=== PATIENT | female | born 1945 | race Caucasian/White ===

== ENCOUNTER 2016-09-12 19:59 | Inpatient (IN) | payer OTHER ==
[2016-09-12 20:00] VITALS: BMI 71.2
[2016-09-12] MEDS ORDERED: Albuterol-Ipratrop 3 mg / 0.5 (3 ml) UD ONE (20:40)
[2016-09-12] MEDS: Albuterol-Ipratrop 3 mg / 0.5 (3 ml) UD IH SCH ×3 (20:53→21:06)
[2016-09-12 20:57] LABS: BASO # 0.1 K/uL (0.0-0.2); EOS # 0.3 K/uL (0.0-0.7); EOS % 2.6 % (0.0-4.0); HEMATOCRIT 42.3 % (34.0-47.0); LYMPH # 2.6 K/uL (1.0-4.3); LYMPH % 20.7 % (20.0-40.0); MEAN CELL VOLUME 84.6 fL (81.0-99.0); MEAN CORPUSCULAR HEMOGLOBIN 27.2 pg (27.0-31.0); MEAN CORPUSCULAR HGB CONC 32.2 g/dL (33.0-37.0); MEAN PLATELET VOLUME 8.8 fL (7.2-11.7); MONO # 1.1 K/uL (0.0-0.8); RED CELL DISTRIBUTION WIDTH 15.8 % (11.5-14.5); WHITE BLOOD COUNT 12.7 K/uL (4.8-10.8)
[2016-09-12 21:07] LABS: CHLORIDE 106 mmol/L (98-107); SODIUM 141 mmol/L (132-148)
[2016-09-12 21:10] LABS: ALKALINE PHOSPHATASE 95 U/L (38-126); ALT/SGPT 17 U/L (9-52); AST/SGOT 24 U/L (14-36); BILIRUBIN,TOTAL 0.7 mg/dL (0.2-1.3); BLOOD UREA NITROGEN 9 mg/dL (7-17); CALCIUM 8.3 mg/dl (8.6-10.4); CARBON DIOXIDE 25 mmol/L (22-30); GFR AFRICAN-AMERICAN > 60; GLUCOSE,RANDOM 127 mg/dL (65-105); TOTAL PROTEIN 7.2 g/dL (6.3-8.3)
[2016-09-12 21:11] LABS: MAGNESIUM 1.8 mg/dL (1.6-2.3)
[2016-09-12] MEDS ORDERED: Potassium Chloride 20 mEq ER Tab PO STA (21:26)
--- NOTE | 2016-09-12 21:40 | C.PDOC ---
Time Seen by Provider: 09/12/16 20:26 Chief Complaint (Nursing): Shortness Of Breath History Per: Patient Onset/Duration Of Symptoms: Days (3) Current Symptoms Are (Timing): Still Present Initiating Event: Upper Respiratory Illness (?) Current Respiratory Medications: See Home Med List Severity: Moderate Associated Symptoms: Productive Cough Additional History Per: Prior Records Past Medical History Reviewed: Historical Data, Nursing Documentation, Vital Signs Vital Signs: Last Vital Signs Temp 98.2 F 09/12/16 20:10 Pulse 109 H 09/12/16 21:06 Resp 28 H 09/12/16 21:23 BP 123/63 09/12/16 21:06 Pulse Ox 86 L 09/12/16 21:42 - Medical History PMH: Arthritis, Asthma, Bronchitis, Fractures (dislocation of elbow 2013), Pneumonia Other PMH: Pulmonary Fibrosis. Bronchietasis. On home O2. - Pick a Student Procedures CL REDUC DISLOC-ELBOW (09/23/13) Family History: States: Unknown Family Hx - Social History Hx Tobacco Use: No Hx Alcohol Use: No Hx Substance Use: No - Immunization History Hx Tetanus Toxoid Vaccination: No Hx Influenza Vaccination: Yes Hx Pneumococcal Vaccination: No Review Of Systems Except As Marked, All Systems Reviewed And Found Negative. Constitutional: Negative for: Weakness ENT: Positive for: Nose Congestion. Negative for: Throat Pain Cardiovascular: Negative for: Chest Pain Respiratory: Positive for: Cough, Shortness of Breath, Sputum Gastrointestinal: Negative for: Vomiting, Abdominal Pain Musculoskeletal: Negative for: Neck Pain Neurological: Negative for: Weakness, Numbness, Seizures, Altered Mental Status Physical Exam - Physical Exam Appears: In Acute Distress (mild), Chronically Ill Skin: Normal Color, Warm, Dry Head: Atraumatic, Normacephalic Eye(s): bilateral: PERRL, EOMI Neck: Normal ROM, Supple Cardiovascular: Rhythm Regular Respiratory: No Accessory Muscle Use, Other (Crackles) Gastrointestinal/Abdominal: Soft, No Tenderness Extremity: Normal ROM, No Calf Tenderness Neurological/Psych: Oriented x3, Normal Motor, Normal Sensation ED Course And Treatment - Laboratory Results Result Diagrams: 09/12/16 20:52 09/12/16 20:52 O2 Sat by Pulse Oximetry: 86 (on RA) Pulse Ox Interpretation: Abnormal Interpretation Of Abnormal: Hypoxia on RA - Radiology CXR: Interpreted by Me, Viewed By Me CXR Interpretation: Yes: Infiltrates (interstitial) Progress - Interventions Interventions:: Observation, Intravenous fluid, Oxygen - Medications Administered Inhaled nebulized: Anticholinergic, Beta-2 agonist Intravenous: Corticosteroid - Data Reviewed Data Reviewed: Lab, Diagnostic imaging, Old records - Patient Status Patient status: Partially improved - Continuity of Care Discussed patient case with:: Patient, ED Nurse, On-call PMD-pt unassigned - Patient Plan Patient Plan: Admission Disposition Discussed With : Alexis Lyn Comment: He accepted pt on hospitalist service. Doctor Will See Patient In The: Hospital Counseled Patient/Family Regarding: Studies Performed, Diagnosis - Disposition Disposition: HOSPITALIZED Disposition Time: 21:43 Condition: FAIR - Clinical Impression Clinical Impression: Acute exacerbation of bronchiectasis, Pulmonary fibrosis
[2016-09-12] MEDS ORDERED: Potassium Chloride 20 mEq ER Tab PO ONE (21:41)
[2016-09-12] MEDS ORDERED: Moxifloxacin IV 400mg/250ml NS 400 MG/250 ML BAG IVPB ONE (21:42)
--- NOTE | 2016-09-12 22:19 | CP.PCM.HP ---
<Shailesh Mcdonald - Last Filed: 09/13/16 03:03> History of Present Illness - History of Present Illness History of Present Illness: CC: shortness of breath HPI: 71 year old female with PMHx significant for asthma and pulmonary fibrosis presents with complaints of cough and shortness of breath of three days duration. Patient states that the symptoms became unbearable prompting her to come to the ED. She describes the cough as productive with a yellow-white phlegm. She states that she has had a history of pulmonary fibrosis for many years requiring treatment. She admits to being febrile though she did not check with a thermometer. She admits to headaches, shortness of breath and cough. She admits to being in the presence of a passerby with a cough. She denies chest pain, palpitations, leg pain, back pain, paresthesias, nausea, vomiting, diarrhea or constipation at this time. PMH - pulmonary fibrosis, asthma PSH - possible bronchoscopy; otherwise no surgery Home meds - atrovent HFA, albuterol pump, singulair, will confirm whether patient was also on prednisone Allergies - denies however the record indicates iodine; will confirm Fam Hx - denies Social Hx - denies ever smoking, or usng drugs; admits to social alcohol use. 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 Marcel Maya Present on Admission - Present on Admission Any Indicators Present on Admission: No Review of Systems - Review of Systems Systems not reviewed;Unavailable: Language Barrier - Constitutional Constitutional: Fever, Headache - EENT Eyes: absent: Blurred Vision, Change in Vision Ears: absent: Decreased Hearing, Ear Discharge Nose/Mouth/Throat: Change in Voice. absent: Nasal Congestion - Cardiovascular Cardiovascular: absent: Chest Pain, Chest Pain at Rest - Respiratory Respiratory: Cough, Dyspnea, Dyspnea on Exertion, Wheezing, Chest Congestion, Change in Mucous Color. absent: Hemoptysis, Stridor, Pain with Coughing - Gastrointestinal Gastrointestinal: absent: Nausea, Vomiting - Musculoskeletal Musculoskeletal: absent: Neck Pain, Numbness - Integumentary Integumentary: absent: Change in Hair, Dry Skin - Neurological Neurological: absent: Abnormal Hearing, Headaches - Psychiatric Psychiatric: absent: Anxiety, Irritability - Endocrine Endocrine: absent: Change in Body Appearance Past Patient History - Past Medical History & Family History Past Medical History?: Yes - Past Social History Smoking Status: Never Smoked - CARDIAC Hx Cardiac Disorders: No - PULMONARY Hx Asthma: Yes Hx Bronchitis: Yes Hx Pneumonia: Yes - NEUROLOGICAL Hx Neurological Disorder: No - HEENT Hx HEENT Problems: No - RENAL Hx Chronic Kidney Disease: No - ENDOCRINE/METABOLIC Hx Endocrine Disorders: No - HEMATOLOGICAL/ONCOLOGICAL Hx Blood Disorders: No Hx Blood Transfusions: No - INTEGUMENTARY Hx Dermatological Problems: No - MUSCULOSKELETAL/RHEUMATOLOGICAL Hx Arthritis: Yes Hx Fractures: Yes (dislocation of elbow 2013) - GASTROINTESTINAL Hx Gastrointestinal Disorders: No - GENITOURINARY/GYNECOLOGICAL Hx Genitourinary Disorders: No - PSYCHIATRIC Hx Substance Use: No - SURGICAL HISTORY Hx Surgeries: Yes Other/Comment: 'LUNG SX'/BIOPSY? 2016 - ANESTHESIA Hx Anesthesia: Yes Hx Anesthesia Reactions: No Hx Malignant Hyperthermia: No Meds Allergies/Adverse Reactions: Allergies Allergy/AdvReac Type Severity Reaction Status Date / Time iodine Allergy Verified 11/15/15 09:16 Physical Exam - Constitutional Appears: Non-toxic, No Acute Distress - Head Exam Head Exam: ATRAUMATIC, NORMAL INSPECTION, NORMOCEPHALIC - Eye Exam Eye Exam: EOMI, Normal appearance, PERRL Pupil Exam: NORMAL ACCOMODATION, PERRL - ENT Exam ENT Exam: Mucous Membranes Moist, Normal Exam - Neck Exam Neck exam: Positive for: Full Rom - Respiratory Exam Respiratory Exam: Rhonchi, NORMAL BREATHING PATTERN. absent: Clear to Auscultation Bilateral, Wheezes, Stridor - Cardiovascular Exam Cardiovascular Exam: +S1, +S2 - GI/Abdominal Exam GI & Abdominal Exam: Normal Bowel Sounds, Soft - Extremities Exam Extremities exam: Positive for: calf tenderness, full ROM, normal capillary refill, tenderness, pedal pulses present. Negative for: joint swelling - Back Exam Back exam: FULL ROM - Neurological Exam Neurological exam: Alert, CN II-XII Intact, Oriented x3 - Psychiatric Exam Psychiatric exam: Normal Affect, Normal Mood - Skin Skin Exam: Intact, Warm Additional comments: erythematous varied rashes noted on right donaldson Results - Vital Signs Recent Vital Signs: Last Vital Signs Temp 98.2 F 09/12/16 20:10 Pulse 110 H 09/12/16 22:11 Resp 27 H 09/12/16 22:11 BP 138/91 H 09/12/16 21:52 Pulse Ox 94 L 09/12/16 22:11 - Labs Result Diagrams: 09/12/16 20:52 09/12/16 20:52 Assessment & Plan (1) Shortness of breath Assessment and Plan: Cough with productive sputum- F/U sputum and influenza cultures Chest XRAY- unclear infiltrative changes noted in Left lower lung field. Will require further imaging to rule in/out pneumonia F/U CT chest Avelox daily. Florastor BID Duonebs Q4 PRN Guaifenesin/Dextromethorphan Singulair 10 mg PO HS Atrovent HFA F/U Morning labs Status: Acute (2) Asthma Assessment and Plan: Duonebs Q4 PRN Singulair 10 mg PO HS Atrovent HFA Assess need for steroids Received 125 mg IV Solumedrol in ED Status: Chronic (3) Pulmonary fibrosis Assessment and Plan: Per last admission, in Feb 2016, patient a good candidate for Pirfenidone. Will follow up regarding need Status: Chronic (4) Prophylactic measure Assessment and Plan: SCDs Heparin SC GI prophylaxis not currently indicated Status: Acute <Danial Mccann P - Last Filed: 09/16/16 11:05> Results - Vital Signs Recent Vital Signs: Last Vital Signs Temp 97.5 F L 09/16/16 07:05 Pulse 65 09/16/16 07:05 Resp 20 09/16/16 07:05 BP 139/76 09/16/16 07:05 Pulse Ox 94 L 09/16/16 07:05 - Labs Result Diagrams: 09/16/16 07:28 09/16/16 07:28 Labs: Laboratory Results - last 24 hr 09/15/16 09/16/16 09/16/16 20:56 07:28 07:28 WBC 12.9 H RBC 4.83 Hgb 13.0 Hct 40.7 MCV 84.3 MCH 27.0 MCHC 32.0 L RDW 16.0 H Plt Count 265 MPV 9.3 Neut % (Auto) 86.2 H Lymph % (Auto) 7.5 L [place] % (Auto) 6.3 Eos % (Auto) 0.0 Baso % (Auto) 0.0 Neut # 11.1 H Lymph # 1.0 [place] # 0.8 Eos # 0.0 Baso # 0.0 Neutrophils % (Manual) 87 H Lymphocytes % (Manual) 7 L Monocytes % (Manual) 6 Platelet Estimate Normal RBC Morphology Normal Sodium 140 Potassium 3.4 L Chloride 101 Carbon Dioxide 32 H Anion Gap 10 BUN 24 H Creatinine 0.7 Est GFR ( Amer) > 60 Est GFR (Non-Af Amer) > 60 Random Glucose 163 H Calcium 8.3 L Phosphorus 4.0 Magnesium 2.3 Total Bilirubin 0.6 AST 16 ALT 24 Alkaline Phosphatase 69 Total Protein 6.5 Albumin 3.2 L Globulin 3.2 Albumin/Globulin Ratio 1.0 Urine Color Colorless Urine Clarity Clear Urine pH 6.0 Ur Specific [place] 1.004 Urine Protein Negative Urine Glucose (UA) Normal Urine Ketones Negative Urine Blood Negative Urine Nitrate Negative Urine Bilirubin Negative Urine Urobilinogen Normal Ur Leukocyte Esterase Neg Urine WBC (Auto) < 1 Urine RBC (Auto) < 1 Ur Squamous Epith Cells < 1 Attending/Attestation - Attestation I have personally seen and examined this patient.: Yes I have fully participated in the care of the patient.: Yes I have reviewed all pertinent clinical information: Yes
[2016-09-13] MEDS ORDERED: Ipratropium 17 mcg/puff-200 puff/12.5 gm HFA Inh IH SCH (01:15)
[2016-09-13] MEDS: Albuterol-Ipratrop 3 mg / 0.5 (3 ml) UD INH PRN ×2 (02:50→08:16)
[2016-09-13] MEDS: guaiFENesin DM 100 mg-10 mg/5 ml UD PO PRN ×2 (06:10→15:45)
[2016-09-13 08:36] LABS: INR 1.1
[2016-09-13 08:39] LABS: BASO % 0.2 % (0.0-2.0); HEMATOCRIT 41.3 % (34.0-47.0); LYMPH # 0.9 K/uL (1.0-4.3); LYMPH % 10.3 % (20.0-40.0); MEAN CELL VOLUME 84.4 fL (81.0-99.0); MEAN CORPUSCULAR HEMOGLOBIN 27.5 pg (27.0-31.0); MEAN CORPUSCULAR HGB CONC 32.6 g/dL (33.0-37.0); MEAN PLATELET VOLUME 9.3 fL (7.2-11.7); MONO # 0.1 K/uL (0.0-0.8); MONO % 1.3 % (0.0-10.0); WHITE BLOOD COUNT 9.2 K/uL (4.8-10.8)
[2016-09-13 09:02] LABS: CHLORIDE 106 mmol/L (98-107); POTASSIUM 3.4 mmol/L (3.6-5.2); SODIUM 142 mmol/L (132-148)
[2016-09-13 09:04] LABS: BILIRUBIN,TOTAL 0.6 mg/dL (0.2-1.3); GFR AFRICAN-AMERICAN > 60
[2016-09-13 09:05] LABS: ALKALINE PHOSPHATASE 83 U/L (38-126); ALT/SGPT 15 U/L (9-52); AST/SGOT 24 U/L (14-36); BLOOD UREA NITROGEN 7 mg/dL (7-17); CALCIUM 8.4 mg/dl (8.6-10.4); CARBON DIOXIDE 24 mmol/L (22-30); GLUCOSE,RANDOM 195 mg/dL (65-105); MAGNESIUM 1.8 mg/dL (1.6-2.3); PHOSPHOROUS 3.4 mg/dL (2.5-4.5); TOTAL PROTEIN 7.1 g/dL (6.3-8.3)
--- NOTE | 2016-09-13 09:45 | RAD ---
PROCEDURE: CHEST RADIOGRAPH, 1 VIEW HISTORY: Shortness of breath COMPARISON: 02/28/2016 FINDINGS: LUNGS: There are persistent low lung volumes and interstitial thickening in both lungs. PLEURA: No pneumothorax or pleural fluid seen. CARDIOVASCULAR: There is mild cardiomegaly OSSEOUS STRUCTURES: No significant abnormalities. VISUALIZED UPPER ABDOMEN: Normal. OTHER FINDINGS: None. IMPRESSION: Findings are most compatible with interstitial fibrosis.
[2016-09-13] MEDS: Moxifloxacin IV 400mg/250ml NS 400 MG/250 ML BAG IVPB SCH (10:02)
[2016-09-13] MEDS: Saccharomyces Boulardi 250 mg Cap PO SCH ×2 (10:02→17:21)
--- NOTE | 2016-09-13 10:19 | CT ---
PROCEDURE: CT Chest without contrast HISTORY: dyspnea, pulm fibrosis, pneumonia COMPARISON: 06/12/2016 TECHNIQUE: Contiguous axial images were obtained through the chest without intravenous contrast enhancement. Sagittal and coronal reconstructions were performed. Radiation dose (DLP): 352.79 mGy-cm. This CT exam was performed using one or more of the following dose reduction techniques: Automated exposure control, adjustment of the mA and/or kV according to patient size, and/or use of iterative reconstruction technique. FINDINGS: LUNGS: There is redemonstration of honeycombing, worse in the right middle lobe and lingula and mild traction bronchiectasis in the lower lobes. There is superimposed patchy ground-glass attenuation in both lungs. There is no focal consolidation. There is no mass. There are no endobronchial lesions. MEDIASTINUM: The aorta is normal in caliber. There is mild dilatation of the main pulmonary artery. The heart is enlarged. No pericardial effusion. There are stable mildly enlarged lymph nodes. PLEURA: No pleural fluid. No pneumothorax. BONES: No fracture. No destructive lesion. Mild multilevel degenerative disc disease. UPPER ABDOMEN: Grossly unremarkable. OTHER FINDINGS: None. IMPRESSION: 1. Findings are most compatible with interstitial pulmonary fibrosis. No evidence of superimposed consolidation. No significant interval change. 2. Mild cardiomegaly and pulmonary hypertension.
--- NOTE | 2016-09-13 14:05 | CP.PCM.PN ---
Subjective - Date & Time of Evaluation Date of Evaluation: 09/13/16 Time of Evaluation: 08:00 - Subjective Subjective: Medicine Note- Hospitalist Service Patient was seen and examined at bedside. Patient reports her breathing is so-so , stable enough to rest for now. Patient also reports a cough. Denies any additional acute complaints. No events overnight per nursing. Objective - Vital Signs/Intake and Output Vital Signs (last 24 hours): Temp Pulse Resp BP Pulse Ox 98.6 F 111 H 20 125/73 95 09/13/16 08:00 09/13/16 08:00 09/13/16 08:00 09/13/16 08:00 09/13/16 08:00 - Medications Medications: Current Medications Albuterol/Ipratropium (Duoneb 3 Mg/0.5 Mg (3 Ml) Ud) 3 ml INH RQ4 PRN PRN Reason: Wheezing Last Admin: 09/13/16 08:16 Dose: 3 ml Guaifenesin/Dextromethorphan (Robitussin Dm) 5 ml PO Q4H PRN PRN Reason: Cough Last Admin: 09/13/16 06:10 Dose: 5 ml Heparin Sodium (Porcine) (Heparin) 5,000 units SC Q8 [facility] Last Admin: 09/13/16 06:10 Dose: 5,000 units Moxifloxacin HCl (Avelox Iv 400mg/250ml Ns) 400 mg in 250 mls @ 167 mls/hr IVPB Q24H [facility] Last Admin: 09/13/16 10:02 Dose: 167 mls/hr Ipratropium [place] (Atrovent Hfa) 2 puff IH RQ6 [facility] Methylprednisolone (Solu-Medrol) 60 mg IV Q8H [facility] Montelukast Sodium (Singulair) 10 mg PO HS [facility] Pneumococcal Polyvalent Vaccine (Pneumovax 23 Vaccine) 0.5 ml IM .ONCE ONE Stop: 09/14/16 10:01 Saccharomyces Boulardii (Florastor) 250 mg PO BID [facility] Last Admin: 09/13/16 10:02 Dose: 250 mg - Labs Labs: 09/13/16 08:21 09/13/16 08:21 PT 12.4 SECONDS (9.7-12.2) H 09/13/16 08:21 INR 1.1 09/13/16 08:21 APTT 30 SECONDS (21-34) 09/13/16 08:21 - Constitutional Appears: Non-toxic, No Acute Distress - Head Exam Head Exam: ATRAUMATIC, NORMAL INSPECTION, NORMOCEPHALIC - Eye Exam Pupil Exam: NORMAL ACCOMODATION, PERRL - ENT Exam ENT Exam: Mucous Membranes Moist - Respiratory Exam Respiratory Exam: Rales, Wheezes, NORMAL BREATHING PATTERN. absent: Rhonchi - Cardiovascular Exam Cardiovascular Exam: REGULAR RHYTHM, +S1, +S2 - GI/Abdominal Exam GI & Abdominal Exam: Soft, Normal Bowel Sounds. absent: Tenderness, Diminished Bowel Sounds, Hernia, Hypoactive Bowel Sounds - Extremities Exam Extremities Exam: Normal Capillary Refill, Normal Inspection - Neurological Exam Neurological Exam: Alert, Awake, Oriented x3 - Psychiatric Exam Psychiatric exam: Normal Affect, Normal Mood - Skin Skin Exam: Dry, Intact, Normal Color, Warm Assessment and Plan - Assessment and Plan (Free Text) Assessment: 1) Shortness of breath Assessment and Plan: Cough with productive sputum- F/U sputum and influenza cultures Consult Pulm- Dr. Mathur Received 125 mg IV Solumedrol in ED Started on Solumedrol 60mg IVP Q8h Chest XRAY- unclear infiltrative changes noted in Left lower lung field. Will require further imaging to rule in/out pneumonia CT Chest w/o contrast- 09/13/16- Findings are most comptaible with interstitial pulmonary fibrosis. No evidence of superimposed consolidation. No significant interval change. Mild cardiomegaly and pulmonary hypertension Avelox daily. Florastor BID Duonebs Q4 PRN Guaifenesin/Dextromethorphan Singulair 10 mg PO HS Atrovent HFA Status: Acute (2) Asthma Assessment and Plan: Duonebs Q4 PRN Singulair 10 mg PO HS Atrovent HFA Received 125 mg IV Solumedrol in ED Status: Chronic (3) Pulmonary fibrosis Assessment and Plan: Per last admission, in Feb 2016, patient a good candidate for Pirfenidone. Will follow up regarding need Status: Chronic (4) Prophylactic measure Assessment and Plan: SCDs Heparin SC GI prophylaxis not currently indicated Status: Acute
[2016-09-13] MEDS ORDERED: Potassium Chloride 20 mEq ER Tab PO ONE (15:36)
[2016-09-13 18:36] LABS: ABG ALLEN TEST P; CARBOXYHEMOGLOBIN 2.1 % (0.5-1.5); DRAW SITE LR; HHB 0.3 % (0.0-5.0); METHEMOGLOBIN 1.5 % (0.0-3.0)
[2016-09-13] MEDS ORDERED: HYDROmorphone 1 mg/ml ISec IVP STA (21:58)
[2016-09-14 07:51] LABS: BASO % 0.1 % (0.0-2.0); HEMATOCRIT 40.4 % (34.0-47.0); LYMPH # 1.5 K/uL (1.0-4.3)
[2016-09-14 08:02] LABS: LYMPH % 8.1 % (20.0-40.0); MEAN CELL VOLUME 84.8 fL (81.0-99.0); MEAN CORPUSCULAR HGB CONC 31.8 g/dL (33.0-37.0); MEAN PLATELET VOLUME 9.6 fL (7.2-11.7); MONO # 1.1 K/uL (0.0-0.8); MONO % 5.7 % (0.0-10.0); PLATELET COUNT 256 K/uL (130-400); RED CELL DISTRIBUTION WIDTH 16.1 % (11.5-14.5)
[2016-09-14 08:05] LABS: WHITE BLOOD COUNT 18.6 K/uL (4.8-10.8)
[2016-09-14] MEDS: guaiFENesin DM 100 mg-10 mg/5 ml UD PO PRN ×4 (08:19→20:49)
[2016-09-14 08:43] LABS: CHLORIDE 101 mmol/L (98-107); POTASSIUM 3.7 mmol/L (3.6-5.2); SODIUM 140 mmol/L (132-148)
[2016-09-14 08:45] LABS: GFR AFRICAN-AMERICAN > 60
[2016-09-14 08:46] LABS: ALKALINE PHOSPHATASE 81 U/L (38-126); ALT/SGPT 18 U/L (9-52); AST/SGOT 32 U/L (14-36); BILIRUBIN,TOTAL 0.6 mg/dL (0.2-1.3); BLOOD UREA NITROGEN 15 mg/dL (7-17); CALCIUM 8.4 mg/dl (8.6-10.4); CARBON DIOXIDE 27 mmol/L (22-30); GLUCOSE,RANDOM 159 mg/dL (65-105); PHOSPHOROUS 3.3 mg/dL (2.5-4.5); TOTAL PROTEIN 6.8 g/dL (6.3-8.3)
[2016-09-14] MEDS: Moxifloxacin IV 400mg/250ml NS 400 MG/250 ML BAG IVPB SCH (09:15)
[2016-09-14] MEDS: Saccharomyces Boulardi 250 mg Cap PO SCH ×2 (09:16→17:35)
[2016-09-14 09:28] LABS: NEUTROPHIL 88 % (50-75); TOTAL CELLS COUNTED 100
[2016-09-14] MEDS ORDERED: Pneumococcal 23-Valent Vaccine IM ONE (10:00)
--- NOTE | 2016-09-14 11:41 | CP.PCM.CON ---
History of Present Illness - History of Present Illness History of Present Illness: reason for consultation: shortness of breath 71 year old female with PMHx significant for asthma and pulmonary fibrosis presents with complaints of cough and shortness of breath of three days duration. Patient states that the symptoms became unbearable prompting her to come to the ED. She describes the cough as productive with a yellow-white phlegm. Patient has history of only fibrosis for many years and is awaiting for approval for pulmonary fibrosis medication OFEV PMH - pulmonary fibrosis, asthma PSH - possible bronchoscopy; otherwise no surgery Home meds - atrovent HFA, albuterol pump, singulair, will confirm whether patient was also on prednisone Allergies - denies however the record indicates iodine; will confirm Fam Hx - denies Social Hx - denies ever smoking, or usng drugs; admits to social alcohol use. Worked in [employer] for over 40 yea Review of Systems - Review of Systems All systems: reviewed and no additional remarkable complaints except (shortness of breath and cough) Past Patient History - Past Medical History & Family History Past Medical History?: Yes - Past Social History Smoking Status: Never Smoked - CARDIAC Hx Cardiac Disorders: No - PULMONARY Hx Asthma: Yes Hx Bronchitis: Yes Hx Pneumonia: Yes - NEUROLOGICAL Hx Neurological Disorder: No - HEENT Hx HEENT Problems: No - RENAL Hx Chronic Kidney Disease: No - ENDOCRINE/METABOLIC Hx Endocrine Disorders: No - HEMATOLOGICAL/ONCOLOGICAL Hx Blood Disorders: No Hx Blood Transfusions: No - INTEGUMENTARY Hx Dermatological Problems: No - MUSCULOSKELETAL/RHEUMATOLOGICAL Hx Arthritis: Yes Hx Fractures: Yes (dislocation of elbow 2013) - GASTROINTESTINAL Hx Gastrointestinal Disorders: No - GENITOURINARY/GYNECOLOGICAL Hx Genitourinary Disorders: No - PSYCHIATRIC Hx Substance Use: No - SURGICAL HISTORY Hx Surgeries: Yes Other/Comment: 'LUNG SX'/BIOPSY? 2015 - ANESTHESIA Hx Anesthesia: Yes Hx Anesthesia Reactions: No Hx Malignant Hyperthermia: No Meds Allergies/Adverse Reactions: Allergies Allergy/AdvReac Type Severity Reaction Status Date / Time iodine Allergy Verified 11/15/15 09:16 - Medications Medications: Current Medications Albuterol/Ipratropium (Duoneb 3 Mg/0.5 Mg (3 Ml) Ud) 3 ml INH RQ4 PRN PRN Reason: Wheezing Last Admin: 09/13/16 08:16 Dose: 3 ml Guaifenesin/Dextromethorphan (Robitussin Dm) 5 ml PO Q4H PRN PRN Reason: Cough Last Admin: 09/14/16 08:19 Dose: 5 ml Heparin Sodium (Porcine) (Heparin) 5,000 units SC Q8 [facility] Last Admin: 09/14/16 05:03 Dose: 5,000 units Moxifloxacin HCl (Avelox Iv 400mg/250ml Ns) 400 mg in 250 mls @ 167 mls/hr IVPB Q24H [facility] Last Admin: 09/14/16 09:15 Dose: 167 mls/hr Ipratropium [place] (Atrovent Hfa) 2 puff IH RQ6 [facility] Methylprednisolone (Solu-Medrol) 60 mg IV Q8H [facility] Last Admin: 09/14/16 05:03 Dose: 60 mg Montelukast Sodium (Singulair) 10 mg PO HS [facility] Last Admin: 09/13/16 22:22 Dose: 10 mg Saccharomyces Boulardii (Florastor) 250 mg PO BID [facility] Last Admin: 09/14/16 09:16 Dose: 250 mg Physical Exam - Head Exam Head Exam: ATRAUMATIC, NORMOCEPHALIC - Eye Exam Eye Exam: Normal appearance - ENT Exam ENT Exam: Mucous Membranes Moist - Neck Exam Neck exam: Positive for: Normal Inspection - Respiratory Exam Respiratory Exam: Rales - Cardiovascular Exam Cardiovascular Exam: REGULAR RHYTHM - GI/Abdominal Exam GI & Abdominal Exam: Normal Bowel Sounds, Soft - Extremities Exam Extremities exam: Positive for: normal inspection - Neurological Exam Neurological exam: Alert, Oriented x3 Results - Vital Signs Recent Vital Signs: Last Vital Signs Temp 97.9 F 09/14/16 07:29 Pulse 80 09/14/16 07:29 Resp 20 09/14/16 07:29 BP 130/84 09/14/16 07:29 Pulse Ox 96 09/14/16 07:29 - Labs Result Diagrams: 09/14/16 07:24 09/14/16 07:24 Labs: Laboratory Results - last 24 hr 09/13/16 09/14/16 09/14/16 18:30 07:24 07:24 WBC 18.6 H D RBC 4.76 Hgb 12.9 Hct 40.4 MCV 84.8 MCH 27.0 MCHC 31.8 L RDW 16.1 H Plt Count 256 MPV 9.6 Neut % (Auto) 86.1 H Lymph % (Auto) 8.1 L [place] % (Auto) 5.7 Eos % (Auto) 0.0 Baso % (Auto) 0.1 Neut # 16.0 H Lymph # 1.5 [place] # 1.1 H Eos # 0.0 Baso # 0.0 Neutrophils % (Manual) 88 H Lymphocytes % (Manual) 10 L Monocytes % (Manual) 2 Toxic Granulation Present Platelet Estimate Normal RBC Morphology Normal PT 11.4 INR 1.0 APTT 31 Puncture Site Lr pCO2 44 pO2 184 H HCO3 24.7 ABG pH 7.37 ABG Total CO2 26.8 ABG O2 Saturation 99.7 H ABG Base Excess -0.2 ABG Hemoglobin 13.8 ABG Carboxyhemoglobin 2.1 H POC ABG HHb (Measured) 0.3 ABG Methemoglobin 1.5 Ramirez Test P A-a O2 Difference 118.0 Respiratory Index 0.6 Hgb O2 Saturation 96.0 FiO2 50.0 Inspiratory BiPAP 10 Expiratory BiPAP 5 Sodium Potassium Chloride Carbon Dioxide Anion Gap BUN Creatinine Est GFR ( Amer) Est GFR (Non-Af Amer) Random Glucose Calcium Phosphorus Magnesium Total Bilirubin AST ALT Alkaline Phosphatase Total Protein Albumin Globulin Albumin/Globulin Ratio 09/14/16 07:24 WBC RBC Hgb Hct MCV MCH MCHC RDW Plt Count MPV Neut % (Auto) Lymph % (Auto) [place] % (Auto) Eos % (Auto) Baso % (Auto) Neut # Lymph # [place] # Eos # Baso # Neutrophils % (Manual) Lymphocytes % (Manual) Monocytes % (Manual) Toxic Granulation Platelet Estimate RBC Morphology PT INR APTT Puncture Site pCO2 pO2 HCO3 ABG pH ABG Total CO2 ABG O2 Saturation ABG Base Excess ABG Hemoglobin ABG Carboxyhemoglobin POC ABG HHb (Measured) ABG Methemoglobin Ramirez Test A-a O2 Difference Respiratory Index Hgb O2 Saturation FiO2 Inspiratory BiPAP Expiratory BiPAP Sodium 140 Potassium 3.7 Chloride 101 Carbon Dioxide 27 Anion Gap 15 BUN 15 Creatinine 0.6 L Est GFR ( Amer) > 60 Est GFR (Non-Af Amer) > 60 Random Glucose 159 H Calcium 8.4 L Phosphorus 3.3 Magnesium 2.0 Total Bilirubin 0.6 AST 32 ALT 18 Alkaline Phosphatase 81 Total Protein 6.8 Albumin 3.5 Globulin 3.3 Albumin/Globulin Ratio 1.0 Assessment & Plan (1) Pulmonary fibrosis Status: Chronic Comment: continue IV steroids. Continue nebulizer treatment. patient candidate for pulmonary fibrosis medication OFEV (2) Shortness of breath Status: Acute
--- NOTE | 2016-09-14 17:42 | CP.PCM.PN ---
<Kathy Rios - Last Filed: 09/14/16 20:44> Subjective - Date & Time of Evaluation Date of Evaluation: 09/14/16 Time of Evaluation: 17:42 - Subjective Subjective: Medicine Progress note: Dr. Viera service Patient was seen and examined at bedside this morning in no acute distress. Patient reports still coughing up white sputum. Patient denies chest pain, palpitations, nausea, vomiting, dizziness, constopation, and diarrhea. Objective - Vital Signs/Intake and Output Vital Signs (last 24 hours): Temp Pulse Resp BP Pulse Ox 98.8 F 90 20 154/90 H 95 09/14/16 15:00 09/14/16 15:00 09/14/16 15:00 09/14/16 15:00 09/14/16 15:00 Intake and Output: 09/14/16 09/14/16 06:59 18:59 Intake Total 350 1100 Balance 350 1100 - Medications Medications: Current Medications Albuterol/Ipratropium (Duoneb 3 Mg/0.5 Mg (3 Ml) Ud) 3 ml INH RQ4 PRN PRN Reason: Wheezing Last Admin: 09/13/16 08:16 Dose: 3 ml Guaifenesin/Dextromethorphan (Robitussin Dm) 5 ml PO Q4H PRN PRN Reason: Cough Last Admin: 09/14/16 16:17 Dose: 5 ml Heparin Sodium (Porcine) (Heparin) 5,000 units SC Q8 [facility] Last Admin: 09/14/16 13:57 Dose: 5,000 units Moxifloxacin HCl (Avelox Iv 400mg/250ml Ns) 400 mg in 250 mls @ 167 mls/hr IVPB Q24H [facility] Last Admin: 09/14/16 09:15 Dose: 167 mls/hr Ipratropium [place] (Atrovent Hfa) 2 puff IH RQ6 [facility] Methylprednisolone (Solu-Medrol) 60 mg IV Q8H [facility] Last Admin: 09/14/16 12:12 Dose: 60 mg Montelukast Sodium (Singulair) 10 mg PO HS [facility] Last Admin: 09/13/16 22:22 Dose: 10 mg Saccharomyces Boulardii (Florastor) 250 mg PO BID [facility] Last Admin: 09/14/16 17:35 Dose: 250 mg - Labs Labs: 09/14/16 07:24 09/14/16 07:24 PT 11.4 SECONDS (9.7-12.2) 09/14/16 07:24 INR 1.0 09/14/16 07:24 APTT 31 SECONDS (21-34) 09/14/16 07:24 - Constitutional Appears: No Acute Distress - Head Exam Head Exam: NORMAL INSPECTION, NORMOCEPHALIC - Eye Exam Eye Exam: EOMI, Normal appearance - ENT Exam ENT Exam: Mucous Membranes Moist - Neck Exam Neck Exam: Full ROM - Respiratory Exam Respiratory Exam: Rhonchi, Wheezes Additional comments: patient was using BIPAP when initally examine, and later using nasal canula - Cardiovascular Exam Cardiovascular Exam: REGULAR RHYTHM, +S1, +S2 - GI/Abdominal Exam GI & Abdominal Exam: Soft, Normal Bowel Sounds. absent: Distended, Tenderness - Extremities Exam Extremities Exam: absent: Calf Tenderness, Pedal Edema, Tenderness - Neurological Exam Neurological Exam: Alert, Awake, Oriented x3 - Psychiatric Exam Psychiatric exam: Normal Affect, Normal Mood - Skin Skin Exam: Dry, Normal Color, Warm Assessment and Plan (1) Shortness of breath Assessment & Plan: Cough with productive sputum- Sputum cultures: positive for gram negative rods Pulm Consult- Dr. Mathur, help appreciated - Patient to start on OFEV Received 125 mg IV Solumedrol in ED Started on Solumedrol 60mg IVP Q8h Chest XRAY- unclear infiltrative changes noted in Left lower lung field. CT Chest w/o contrast- 09/13/16- Findings are most comptaible with interstitial pulmonary fibrosis. No evidence of superimposed consolidation. No significant interval change. Mild cardiomegaly and pulmonary hypertension Avelox daily. Florastor BID Duonebs Q4 PRN Guaifenesin/Dextromethorphan PO Q4h PRN Singulair 10 mg PO HS Atrovent HFA Status: Acute (2) Asthma Assessment & Plan: Duonebs Q4 PRN Singulair 10 mg PO HS Atrovent HFA Status: Chronic (3) Pulmonary fibrosis Assessment & Plan: Continue IV steroids. Continue nebulizer treatment. As per Dr. Mathur, patient will start medication OFEV Status: Chronic (4) Prophylactic measure Assessment & Plan: SCDs Heparin SC GI prophylaxis not currently indicated Status: Acute <Clovis Viera M - Last Filed: 09/15/16 09:11> Objective - Vital Signs/Intake and Output Vital Signs (last 24 hours): Temp Pulse Resp BP Pulse Ox 98.5 F 73 20 125/74 96 09/15/16 08:00 09/15/16 08:00 09/15/16 08:00 09/15/16 08:00 09/15/16 08:00 Intake and Output: 09/15/16 09/15/16 06:59 18:59 Intake Total 200 Balance 200 - Medications Medications: Current Medications Albuterol/Ipratropium (Duoneb 3 Mg/0.5 Mg (3 Ml) Ud) 3 ml INH RQ4 PRN PRN Reason: Wheezing Last Admin: 09/15/16 08:36 Dose: 3 ml Guaifenesin/Dextromethorphan (Robitussin Dm) 5 ml PO Q4H PRN PRN Reason: Cough Last Admin: 09/15/16 02:44 Dose: 5 ml Heparin Sodium (Porcine) (Heparin) 5,000 units SC Q8 [facility] Last Admin: 09/15/16 06:11 Dose: 5,000 units Moxifloxacin HCl (Avelox Iv 400mg/250ml Ns) 400 mg in 250 mls @ 167 mls/hr IVPB Q24H [facility] Last Admin: 09/14/16 09:15 Dose: 167 mls/hr Ipratropium [place] (Atrovent Hfa) 2 puff IH RQ6 [facility] Methylprednisolone (Solu-Medrol) 60 mg IV Q8H [facility] Last Admin: 09/15/16 04:46 Dose: 60 mg Montelukast Sodium (Singulair) 10 mg PO HS [facility] Last Admin: 09/14/16 21:13 Dose: 10 mg Saccharomyces Boulardii (Florastor) 250 mg PO BID [facility] Last Admin: 09/14/16 17:35 Dose: 250 mg - Labs Labs: 09/15/16 06:48 09/15/16 06:48 PT 11.4 SECONDS (9.7-12.2) 09/14/16 07:24 INR 1.0 09/14/16 07:24 APTT 31 SECONDS (21-34) 09/14/16 07:24 Attending/Attestation - Attestation I have personally seen and examined this patient.: Yes I have fully participated in the care of the patient.: Yes I have reviewed all pertinent clinical information, including history, physical exam and plan: Yes Notes (Text): 09/15/16 09:10 Patient was seen and examined at bedside with the resident Patient still has the wheezing and we'll continue IV Solu-Medrol Pulmonary evaluation seen and appreciated Patient is a candidate for OFEVl for pulmonary fibrosis as outpatient I discussed the plan of care with the resident and agree with the history and physical and assessment/plan documented here.
[2016-09-15] MEDS: guaiFENesin DM 100 mg-10 mg/5 ml UD PO PRN ×3 (02:44→22:12)
[2016-09-15 07:10] LABS: HEMATOCRIT 41.8 % (34.0-47.0); LYMPH # 1.7 K/uL (1.0-4.3); LYMPH % 9.7 % (20.0-40.0); MEAN CELL VOLUME 85.5 fL (81.0-99.0); MEAN CORPUSCULAR HEMOGLOBIN 27.1 pg (27.0-31.0); MEAN CORPUSCULAR HGB CONC 31.6 g/dL (33.0-37.0); MEAN PLATELET VOLUME 9.3 fL (7.2-11.7); MONO # 0.9 K/uL (0.0-0.8); MONO % 5.3 % (0.0-10.0); NRBC % 0.1 % (0.0-2.0); PLATELET COUNT 281 K/uL (130-400); RED CELL DISTRIBUTION WIDTH 15.7 % (11.5-14.5); WHITE BLOOD COUNT 17.7 K/uL (4.8-10.8)
[2016-09-15 07:24] LABS: CHLORIDE 104 mmol/L (98-107); SODIUM 141 mmol/L (132-148)
[2016-09-15 07:25] LABS: POTASSIUM 3.5 mmol/L (3.6-5.2)
[2016-09-15 07:27] LABS: ALB/GLOB RATIO 1.1 (1.0-2.1); ALKALINE PHOSPHATASE 78 U/L (38-126); ALT/SGPT 20 U/L (9-52); AST/SGOT 21 U/L (14-36); BILIRUBIN,TOTAL 0.6 mg/dL (0.2-1.3); BLOOD UREA NITROGEN 22 mg/dL (7-17); CARBON DIOXIDE 29 mmol/L (22-30); GFR AFRICAN-AMERICAN > 60; GLUCOSE,RANDOM 163 mg/dL (65-105); PHOSPHOROUS 3.6 mg/dL (2.5-4.5); TOTAL PROTEIN 7.1 g/dL (6.3-8.3)
[2016-09-15 07:28] LABS: CALCIUM 8.9 mg/dl (8.6-10.4); MAGNESIUM 2.4 mg/dL (1.6-2.3)
--- NOTE | 2016-09-15 07:49 | CP.PCM.PN ---
<Kathy Rios - Last Filed: 09/15/16 18:58> Subjective - Date & Time of Evaluation Date of Evaluation: 09/15/16 Time of Evaluation: 15:30 - Subjective Subjective: Medicine Progress note- Dr. Viera Service: Patient was seen and examined at bedside in no acute distress. Patient reports feeling a little better, but is still coughing up white-yellow sputum. Patient complained of feet/ankle swelling. Patient reports seeing something "dark colored" when urinating", but denies discomfort when urinating. Patient denies chest pain, palpitations, nausea, diarrhea, fever, and chills. Objective - Vital Signs/Intake and Output Vital Signs (last 24 hours): Temp Pulse Resp BP Pulse Ox 98 F 97 H 20 146/87 95 09/15/16 01:21 09/15/16 01:21 09/15/16 01:21 09/15/16 01:21 09/15/16 01:21 Intake and Output: 09/15/16 09/15/16 06:59 18:59 Intake Total 200 Balance 200 - Medications Medications: Current Medications Albuterol/Ipratropium (Duoneb 3 Mg/0.5 Mg (3 Ml) Ud) 3 ml INH RQ4 PRN PRN Reason: Wheezing Last Admin: 09/13/16 08:16 Dose: 3 ml Guaifenesin/Dextromethorphan (Robitussin Dm) 5 ml PO Q4H PRN PRN Reason: Cough Last Admin: 09/15/16 02:44 Dose: 5 ml Heparin Sodium (Porcine) (Heparin) 5,000 units SC Q8 [facility] Last Admin: 09/15/16 06:11 Dose: 5,000 units Moxifloxacin HCl (Avelox Iv 400mg/250ml Ns) 400 mg in 250 mls @ 167 mls/hr IVPB Q24H [facility] Last Admin: 09/14/16 09:15 Dose: 167 mls/hr Ipratropium [place] (Atrovent Hfa) 2 puff IH RQ6 [facility] Methylprednisolone (Solu-Medrol) 60 mg IV Q8H [facility] Last Admin: 09/15/16 04:46 Dose: 60 mg Montelukast Sodium (Singulair) 10 mg PO HS [facility] Last Admin: 09/14/16 21:13 Dose: 10 mg Saccharomyces Boulardii (Florastor) 250 mg PO BID [facility] Last Admin: 09/14/16 17:35 Dose: 250 mg - Labs Labs: 09/15/16 06:48 09/15/16 06:48 PT 11.4 SECONDS (9.7-12.2) 09/14/16 07:24 INR 1.0 09/14/16 07:24 APTT 31 SECONDS (21-34) 09/14/16 07:24 - Constitutional Appears: Non-toxic, No Acute Distress - Head Exam Head Exam: NORMAL INSPECTION, NORMOCEPHALIC - Eye Exam Eye Exam: EOMI, Normal appearance - ENT Exam ENT Exam: Mucous Membranes Moist - Neck Exam Neck Exam: Full ROM, Normal Inspection - Respiratory Exam Respiratory Exam: Decreased Breath Sounds, Wheezes - Cardiovascular Exam Cardiovascular Exam: REGULAR RHYTHM, +S1, +S2 - GI/Abdominal Exam GI & Abdominal Exam: Soft, Normal Bowel Sounds. absent: Distended, Tenderness - Extremities Exam Extremities Exam: Pedal Edema, Tenderness. absent: Calf Tenderness Additional comments: upon palpation of ankles - Neurological Exam Neurological Exam: Alert, Awake, Oriented x3 - Psychiatric Exam Psychiatric exam: Normal Affect, Normal Mood - Skin Skin Exam: Dry, Intact, Normal Color, Warm Assessment and Plan (2) Shortness of breath Assessment & Plan: Cough with productive sputum- Sputum cultures: positive for gram negative rods Pulm Consult- Dr. Mathur, help appreciated - Patient to start on OFEV Received 125 mg IV Solumedrol in ED Started on Solumedrol 60mg IVP Q8h Chest XRAY- unclear infiltrative changes noted in Left lower lung field. CT Chest w/o contrast- 09/13/16- Findings are most compatible with interstitial pulmonary fibrosis. No evidence of superimposed consolidation. No significant interval change. Mild cardiomegaly and pulmonary hypertension Avelox 400mg/250ml Ns IV Q24. Florastor BID Duonebs Q4 PRN Guaifenesin/Dextromethorphan PO Q4h PRN Singulair 10 mg PO HS Atrovent HFA BIPAP PRN Status: Acute (3) Asthma Assessment & Plan: Duonebs Q4 PRN Singulair 10 mg PO HS Atrovent HFA 2 puff IH RQ6 Status: Chronic (4) Pulmonary fibrosis Assessment & Plan: Continue IV steroids. Continue nebulizer treatment. As per Dr. Mathur, patient will start medication OFEV Status: Chronic (5) Pedal edema Assessment & Plan: Lasix 40mg IV Once; will continue home medication of Lasix 40mg PO Daily when discharged. Postassium 20 mEq PO Once Echocardiogram ordered 09/15/16- results pending Status: Acute (6) Prophylactic measure Assessment & Plan: SCDs Heparin SC GI prophylaxis not currently indicated Status: Acute <Clovis Viera - Last Filed: 09/16/16 17:27> Objective - Vital Signs/Intake and Output Vital Signs (last 24 hours): Temp Pulse Resp BP Pulse Ox 98.5 F 76 20 127/74 95 09/16/16 16:00 09/16/16 16:00 09/16/16 16:00 09/16/16 16:00 09/16/16 16:00 - Medications Medications: Current Medications Albuterol/Ipratropium (Duoneb 3 Mg/0.5 Mg (3 Ml) Ud) 3 ml INH RQ4 [facility] Last Admin: 09/16/16 16:33 Dose: 3 ml Furosemide (Lasix) 40 mg PO DAILY [facility] Last Admin: 09/16/16 14:05 Dose: 40 mg Guaifenesin/Dextromethorphan (Robitussin Dm) 5 ml PO Q4H PRN PRN Reason: Cough Last Admin: 09/16/16 08:52 Dose: 5 ml Heparin Sodium (Porcine) (Heparin) 5,000 units SC Q8 [facility] Last Admin: 09/16/16 13:18 Dose: 5,000 units Moxifloxacin HCl (Avelox Iv 400mg/250ml Ns) 400 mg in 250 mls @ 167 mls/hr IVPB Q24H [facility] Last Admin: 09/16/16 09:02 Dose: 167 mls/hr Methylprednisolone (Solu-Medrol) 60 mg IV Q8H [facility] Last Admin: 09/16/16 12:01 Dose: 60 mg Montelukast Sodium (Singulair) 10 mg PO HS [facility] Last Admin: 09/15/16 21:14 Dose: 10 mg Saccharomyces Boulardii (Florastor) 250 mg PO BID [facility] Last Admin: 09/16/16 09:03 Dose: 250 mg - Labs Labs: 09/16/16 07:28 09/16/16 07:28 PT 11.4 SECONDS (9.7-12.2) 09/14/16 07:24 INR 1.0 09/14/16 07:24 APTT 31 SECONDS (21-34) 09/14/16 07:24 Attending/Attestation - Attestation I have personally seen and examined this patient.: Yes I have fully participated in the care of the patient.: Yes I have reviewed all pertinent clinical information, including history, physical exam and plan: Yes Notes (Text): 09/16/16 17:27 Patient was seen and examined at bedside Complains of bilateral lower symptoms swelling We will administer the patient IV Lasix and continue her home medication which is a 40 mg of Lasix by mouth I discussed the plan of care with the resident and agree with the assessment and plan by the resident.
[2016-09-15] MEDS: Albuterol-Ipratrop 3 mg / 0.5 (3 ml) UD INH PRN ×2 (08:36→12:12)
[2016-09-15 08:41] LABS: GIANT PLATELETS PRESENT; LARGE PLATELETS PRESENT; NEUTROPHIL 88 % (50-75); TOTAL CELLS COUNTED 100
[2016-09-15] MEDS: Moxifloxacin IV 400mg/250ml NS 400 MG/250 ML BAG IVPB SCH (10:40)
[2016-09-15] MEDS: Saccharomyces Boulardi 250 mg Cap PO SCH ×2 (10:47→17:33)
--- NOTE | 2016-09-15 11:33 | CP.PCM.PN ---
Subjective - Date & Time of Evaluation Date of Evaluation: 09/15/16 Time of Evaluation: 08:00 - Subjective Subjective: patient seen and examined. Still complaining of shortness of breath and is on BiPAP as needed Slight cough but denies any fevers chills Denies any chest pain Complaining of pedal edema Objective - Vital Signs/Intake and Output Vital Signs (last 24 hours): Temp Pulse Resp BP Pulse Ox 98.5 F 73 20 125/74 96 09/15/16 08:00 09/15/16 08:00 09/15/16 08:00 09/15/16 08:00 09/15/16 08:00 Intake and Output: 09/15/16 09/15/16 06:59 18:59 Intake Total 200 Balance 200 - Medications Medications: Current Medications Albuterol/Ipratropium (Duoneb 3 Mg/0.5 Mg (3 Ml) Ud) 3 ml INH RQ4 PRN PRN Reason: Wheezing Last Admin: 09/15/16 08:36 Dose: 3 ml Guaifenesin/Dextromethorphan (Robitussin Dm) 5 ml PO Q4H PRN PRN Reason: Cough Last Admin: 09/15/16 10:40 Dose: 5 ml Heparin Sodium (Porcine) (Heparin) 5,000 units SC Q8 [facility] Last Admin: 09/15/16 06:11 Dose: 5,000 units Moxifloxacin HCl (Avelox Iv 400mg/250ml Ns) 400 mg in 250 mls @ 167 mls/hr IVPB Q24H [facility] Last Admin: 09/15/16 10:40 Dose: 167 mls/hr Ipratropium [place] (Atrovent Hfa) 2 puff IH RQ6 [facility] Methylprednisolone (Solu-Medrol) 60 mg IV Q8H [facility] Last Admin: 09/15/16 04:46 Dose: 60 mg Montelukast Sodium (Singulair) 10 mg PO HS [facility] Last Admin: 09/14/16 21:13 Dose: 10 mg Saccharomyces Boulardii (Florastor) 250 mg PO BID [facility] Last Admin: 09/15/16 10:47 Dose: 250 mg - Labs Labs: 09/15/16 06:48 09/15/16 06:48 PT 11.4 SECONDS (9.7-12.2) 09/14/16 07:24 INR 1.0 09/14/16 07:24 APTT 31 SECONDS (21-34) 09/14/16 07:24 - Head Exam Head Exam: ATRAUMATIC, NORMOCEPHALIC - ENT Exam ENT Exam: Mucous Membranes Moist - Neck Exam Neck Exam: Normal Inspection - Respiratory Exam Respiratory Exam: Rales - Cardiovascular Exam Cardiovascular Exam: REGULAR RHYTHM - GI/Abdominal Exam GI & Abdominal Exam: Soft, Normal Bowel Sounds - Extremities Exam Extremities Exam: Pedal Edema - Neurological Exam Neurological Exam: Alert, Oriented x3 Assessment and Plan (1) Pulmonary fibrosis Assessment & Plan: * Continue patient on IV steroids, BiPAP, nebulizer treatment Consider Lasix Echocardiogram Status: Chronic (2) Shortness of breath Status: Acute
[2016-09-15] MEDS ORDERED: Potassium Chloride 20 mEq ER Tab PO ONE (15:27)
[2016-09-15 21:03] LABS: RBC URINE < 1 /hpf (0-3); URINE BILIRUBIN NEGATIVE (NEGATIVE); URINE BLOOD NEGATIVE (NEGATIVE); URINE COLOR Colorless (YELLOW); URINE GLUCOSE (UA) NORMAL (Normal); URINE KETONE NEGATIVE (NEGATIVE); URINE LEUKOCYTE ESTERASE NEG Leu/uL (Negative); URINE PROTEIN NEGATIVE (NEGATIVE); URINE UROBILINOGEN NORMAL mg/dL (0.2-1.0); WBC URINE < 1 /hpf (0-5)
--- NOTE | 2016-09-15 21:30 | CARD ---
APPROVED REPORT EKG Measurement Heart [id number] OR [id number] <Conclusion> Sinus tachycardia Right bundle branch block Abnormal ECG
[2016-09-16 00:29] VITALS: RESP 20
[2016-09-16 07:35] LABS: HEMATOCRIT 40.7 % (34.0-47.0); LYMPH % 7.5 % (20.0-40.0); MEAN CELL VOLUME 84.3 fL (81.0-99.0); MEAN PLATELET VOLUME 9.3 fL (7.2-11.7); MONO # 0.8 K/uL (0.0-0.8); MONO % 6.3 % (0.0-10.0); PLATELET COUNT 265 K/uL (130-400); WHITE BLOOD COUNT 12.9 K/uL (4.8-10.8)
[2016-09-16 07:48] LABS: CHLORIDE 101 mmol/L (98-107); POTASSIUM 3.4 mmol/L (3.6-5.2); SODIUM 140 mmol/L (132-148)
[2016-09-16 07:51] LABS: ALKALINE PHOSPHATASE 69 U/L (38-126); ALT/SGPT 24 U/L (9-52); AST/SGOT 16 U/L (14-36); BILIRUBIN,TOTAL 0.6 mg/dL (0.2-1.3); BLOOD UREA NITROGEN 24 mg/dL (7-17); CALCIUM 8.3 mg/dl (8.6-10.4); CARBON DIOXIDE 32 mmol/L (22-30); GFR AFRICAN-AMERICAN > 60; GLUCOSE,RANDOM 163 mg/dL (65-105); TOTAL PROTEIN 6.5 g/dL (6.3-8.3)
[2016-09-16 07:52] LABS: MAGNESIUM 2.3 mg/dL (1.6-2.3)
[2016-09-16] MEDS: Albuterol-Ipratrop 3 mg / 0.5 (3 ml) UD INH PRN ×2 (08:31→11:28)
[2016-09-16 08:52] LABS: NEUTROPHIL 87 % (50-75); TOTAL CELLS COUNTED 100
[2016-09-16] MEDS: guaiFENesin DM 100 mg-10 mg/5 ml UD PO PRN ×2 (08:52→18:41)
[2016-09-16] MEDS: Moxifloxacin IV 400mg/250ml NS 400 MG/250 ML BAG IVPB SCH (09:02)
[2016-09-16] MEDS: Saccharomyces Boulardi 250 mg Cap PO SCH ×2 (09:03→18:41)
[2016-09-16] MEDS ORDERED: Potassium Chloride 20 mEq ER Tab PO ONE (10:00)
--- NOTE | 2016-09-16 13:11 | CP.PCM.PN ---
Subjective - Date & Time of Evaluation Date of Evaluation: 09/16/16 Time of Evaluation: 09:30 - Subjective Subjective: Patient seen and examined. Still complaining of dyspnea on exertion but overall breathing better Less cough Objective - Vital Signs/Intake and Output Vital Signs (last 24 hours): Temp Pulse Resp BP Pulse Ox 97.5 F L 65 20 139/76 94 L 09/16/16 07:05 09/16/16 07:05 09/16/16 07:05 09/16/16 07:05 09/16/16 07:05 - Medications Medications: Current Medications Albuterol/Ipratropium (Duoneb 3 Mg/0.5 Mg (3 Ml) Ud) 3 ml INH RQ4 [facility] Guaifenesin/Dextromethorphan (Robitussin Dm) 5 ml PO Q4H PRN PRN Reason: Cough Last Admin: 09/16/16 08:52 Dose: 5 ml Heparin Sodium (Porcine) (Heparin) 5,000 units SC Q8 [facility] Last Admin: 09/16/16 05:06 Dose: 5,000 units Moxifloxacin HCl (Avelox Iv 400mg/250ml Ns) 400 mg in 250 mls @ 167 mls/hr IVPB Q24H [facility] Last Admin: 09/16/16 09:02 Dose: 167 mls/hr Methylprednisolone (Solu-Medrol) 60 mg IV Q8H [facility] Last Admin: 09/16/16 12:01 Dose: 60 mg Montelukast Sodium (Singulair) 10 mg PO HS [facility] Last Admin: 09/15/16 21:14 Dose: 10 mg Saccharomyces Boulardii (Florastor) 250 mg PO BID [facility] Last Admin: 09/16/16 09:03 Dose: 250 mg - Labs Labs: 09/16/16 07:28 09/16/16 07:28 PT 11.4 SECONDS (9.7-12.2) 09/14/16 07:24 INR 1.0 09/14/16 07:24 APTT 31 SECONDS (21-34) 09/14/16 07:24 - Head Exam Head Exam: ATRAUMATIC, NORMOCEPHALIC - Eye Exam Eye Exam: Normal appearance - ENT Exam ENT Exam: Mucous Membranes Moist - Neck Exam Neck Exam: Normal Inspection - Respiratory Exam Respiratory Exam: Rales - Cardiovascular Exam Cardiovascular Exam: REGULAR RHYTHM - GI/Abdominal Exam GI & Abdominal Exam: Soft, Normal Bowel Sounds - Extremities Exam Extremities Exam: Pedal Edema Assessment and Plan (1) Pulmonary fibrosis Assessment & Plan: On prednisone, antibiotics and nebulizer treatment Stable from pulmonary standpoint Status: Chronic (2) Shortness of breath Status: Acute
--- NOTE | 2016-09-16 14:04 | CP.PCM.PN ---
<Kathy Rios - Last Filed: 09/16/16 21:44> Subjective - Date & Time of Evaluation Date of Evaluation: 09/16/16 Time of Evaluation: 14:04 - Subjective Subjective: Medicine Progress Note- Dr. Viera Service Patient was seen and examined at bedside in no acute distress. Patient reports feeling better today. Patient admits to having something dark in her urine. Patient had a bowel movement yeasterday. She denies having chest pain, palpitations, abdominal pain, fever, chills, nausea and diarrhea. Objective - Vital Signs/Intake and Output Vital Signs (last 24 hours): Temp Pulse Resp BP Pulse Ox 97.5 F L 65 20 139/76 94 L 09/16/16 07:05 09/16/16 07:05 09/16/16 07:05 09/16/16 07:05 09/16/16 07:05 - Medications Medications: Current Medications Albuterol/Ipratropium (Duoneb 3 Mg/0.5 Mg (3 Ml) Ud) 3 ml INH RQ4 [facility] Furosemide (Lasix) 40 mg PO DAILY [facility] Guaifenesin/Dextromethorphan (Robitussin Dm) 5 ml PO Q4H PRN PRN Reason: Cough Last Admin: 09/16/16 08:52 Dose: 5 ml Heparin Sodium (Porcine) (Heparin) 5,000 units SC Q8 [facility] Last Admin: 09/16/16 13:18 Dose: 5,000 units Moxifloxacin HCl (Avelox Iv 400mg/250ml Ns) 400 mg in 250 mls @ 167 mls/hr IVPB Q24H [facility] Last Admin: 09/16/16 09:02 Dose: 167 mls/hr Methylprednisolone (Solu-Medrol) 60 mg IV Q8H [facility] Last Admin: 09/16/16 12:01 Dose: 60 mg Montelukast Sodium (Singulair) 10 mg PO HS [facility] Last Admin: 09/15/16 21:14 Dose: 10 mg Saccharomyces Boulardii (Florastor) 250 mg PO BID [facility] Last Admin: 09/16/16 09:03 Dose: 250 mg - Labs Labs: 09/16/16 07:28 09/16/16 07:28 PT 11.4 SECONDS (9.7-12.2) 09/14/16 07:24 INR 1.0 09/14/16 07:24 APTT 31 SECONDS (21-34) 09/14/16 07:24 - Constitutional Appears: Non-toxic, No Acute Distress - Head Exam Head Exam: NORMAL INSPECTION, NORMOCEPHALIC - Eye Exam Eye Exam: EOMI, Normal appearance - ENT Exam ENT Exam: Mucous Membranes Moist - Neck Exam Neck Exam: Full ROM, Normal Inspection - Respiratory Exam Respiratory Exam: Decreased Breath Sounds, Rhonchi, Wheezes - Cardiovascular Exam Cardiovascular Exam: REGULAR RHYTHM, +S1, +S2 - GI/Abdominal Exam GI & Abdominal Exam: Soft, Normal Bowel Sounds. absent: Distended, Tenderness - Extremities Exam Extremities Exam: Pedal Edema. absent: Calf Tenderness, Tenderness Additional comments: pedal has decreased - Neurological Exam Neurological Exam: Alert, Awake, Oriented x3 - Psychiatric Exam Psychiatric exam: Normal Affect, Normal Mood - Skin Skin Exam: Dry, Intact, Normal Color, Warm Assessment and Plan (1) Pneumonia Assessment & Plan: Sputum Culture: Gram negative rods: Klebsiella Pneumonia ssp Moxifloxacin sensitive Patient to continue Avelox IV 400mg/250ml Ns Status: Acute (2) Shortness of breath Assessment & Plan: Cough with productive sputum- Sputum cultures: positive for gram negative rods Pulm Consult- Dr. Mathur, help appreciated - Patient to start on OFEV Received 125 mg IV Solumedrol in ED Started on Solumedrol 60mg IVP Q8h Chest XRAY- unclear infiltrative changes noted in Left lower lung field. CT Chest w/o contrast- 09/13/16- Findings are most compatible with interstitial pulmonary fibrosis. No evidence of superimposed consolidation. No significant interval change. Mild cardiomegaly and pulmonary hypertension Avelox 400mg/250ml Ns IV Q24. Florastor BID Duonebs Q4 PRN Guaifenesin/Dextromethorphan PO Q4h PRN Singulair 10 mg PO HS Atrovent HFA BIPAP PRN Status: Acute (3) Asthma Assessment & Plan: Duonebs Q4 PRN Singulair 10 mg PO HS Atrovent HFA 2 puff IH RQ6 Status: Chronic (4) Pulmonary fibrosis Assessment & Plan: Continue IV steroids. Continue nebulizer treatment. As per Dr. Mathur, patient will start medication OFEV Status: Chronic (5) Pedal edema Assessment & Plan: Lasix 40mg IV Once on 6/20/17; Patient started Lasix 40mg PO daily. Patient will continue home medication of Lasix 40mg PO Daily when discharged. Postassium 20 mEq PO Once Echocardiogram 09/15/16- pending Status: Acute (6) Prophylactic measure Status: Acute <Clovis Viera - Last Filed: 09/17/16 16:45> Objective - Vital Signs/Intake and Output Vital Signs (last 24 hours): Temp Pulse Resp BP Pulse Ox 98.4 F 81 20 133/79 93 L 09/17/16 15:15 09/17/16 15:15 09/17/16 15:15 09/17/16 15:15 09/17/16 15:15 Intake and Output: 09/17/16 09/17/16 06:59 18:59 Intake Total 610 Balance 610 - Medications Medications: Current Medications Albuterol/Ipratropium (Duoneb 3 Mg/0.5 Mg (3 Ml) Ud) 3 ml INH RQ4 [facility] Last Admin: 09/17/16 16:34 Dose: 3 ml Benzocaine/Menthol (Cepacol Sore Throat) 1 aden MT Q6 PRN PRN Reason: Sore Throat Last Admin: 09/17/16 09:39 Dose: 1 aden Furosemide (Lasix) 40 mg PO DAILY [facility] Last Admin: 09/17/16 09:38 Dose: 40 mg Guaifenesin/Dextromethorphan (Robitussin Dm) 5 ml PO Q4H PRN PRN Reason: Cough Last Admin: 09/17/16 13:33 Dose: 5 ml Heparin Sodium (Porcine) (Heparin) 5,000 units SC Q8 [facility] Last Admin: 09/17/16 13:34 Dose: 5,000 units Methylprednisolone (Solu-Medrol) 60 mg IV Q8H [facility] Last Admin: 09/17/16 12:21 Dose: 60 mg Montelukast Sodium (Singulair) 10 mg PO HS [facility] Last Admin: 09/16/16 21:21 Dose: 10 mg Moxifloxacin HCl (Avelox) 400 mg PO DAILY [facility] Last Admin: 09/17/16 09:38 Dose: 400 mg Saccharomyces Boulardii (Florastor) 250 mg PO BID [facility] Last Admin: 09/17/16 09:39 Dose: 250 mg - Labs Labs: 09/17/16 07:39 09/17/16 07:39 PT 11.4 SECONDS (9.7-12.2) 09/14/16 07:24 INR 1.0 09/14/16 07:24 APTT 31 SECONDS (21-34) 09/14/16 07:24 Attending/Attestation - Attestation I have personally seen and examined this patient.: Yes I have fully participated in the care of the patient.: Yes I have reviewed all pertinent clinical information, including history, physical exam and plan: Yes Notes (Text): 09/17/16 16:44 Patient was seen and examined at bedside with the resident Patient stated that breathing is improved . Pulmonary follow-up seen in appreciated I discussed the plan of care with the resident and agree with the above history and physical and assessment/plan.
[2016-09-16] MEDS: Albuterol-Ipratrop 3 mg / 0.5 (3 ml) UD INH SCH ×3 (16:33→23:29)
[2016-09-17] MEDS: Albuterol-Ipratrop 3 mg / 0.5 (3 ml) UD INH SCH ×4 (03:07→16:34)
[2016-09-17] MEDS: guaiFENesin DM 100 mg-10 mg/5 ml UD PO PRN ×3 (05:29→13:33)
[2016-09-17] MEDS: Benzocaine/Menthol (Cepacol) Lozenge MT PRN ×2 (05:30→09:39)
[2016-09-17 07:57] LABS: BASO % 0.1 % (0.0-2.0); HEMATOCRIT 40.6 % (34.0-47.0); LYMPH # 0.7 K/uL (1.0-4.3); LYMPH % 6.4 % (20.0-40.0); MEAN CELL VOLUME 84.6 fL (81.0-99.0); MEAN CORPUSCULAR HEMOGLOBIN 27.4 pg (27.0-31.0); MEAN CORPUSCULAR HGB CONC 32.4 g/dL (33.0-37.0); MEAN PLATELET VOLUME 9.4 fL (7.2-11.7); MONO # 0.8 K/uL (0.0-0.8); MONO % 7.1 % (0.0-10.0); PLATELET COUNT 238 K/uL (130-400); WHITE BLOOD COUNT 11.2 K/uL (4.8-10.8)
[2016-09-17 08:15] LABS: CHLORIDE 99 mmol/L (98-107); POTASSIUM 3.2 mmol/L (3.6-5.2); SODIUM 140 mmol/L (132-148)
[2016-09-17 08:17] LABS: BILIRUBIN,TOTAL 0.6 mg/dL (0.2-1.3); CARBON DIOXIDE 32 mmol/L (22-30); GFR AFRICAN-AMERICAN > 60
[2016-09-17 08:18] LABS: ALKALINE PHOSPHATASE 67 U/L (38-126); ALT/SGPT 37 U/L (9-52); AST/SGOT 23 U/L (14-36); BLOOD UREA NITROGEN 19 mg/dL (7-17); CALCIUM 8.3 mg/dl (8.6-10.4); GLUCOSE,RANDOM 200 mg/dL (65-105); PHOSPHOROUS 3.6 mg/dL (2.5-4.5); TOTAL PROTEIN 6.2 g/dL (6.3-8.3)
[2016-09-17 08:19] LABS: MAGNESIUM 2.3 mg/dL (1.6-2.3)
[2016-09-17 09:06] LABS: MYELOCYTE 1 % (0-0); NEUTROPHIL 85 % (50-75); TOTAL CELLS COUNTED 100
--- NOTE | 2016-09-17 09:22 | CP.PCM.PN ---
Subjective - Date & Time of Evaluation Date of Evaluation: 09/17/16 Time of Evaluation: : Objective - Vital Signs/Intake and Output Vital Signs (last 24 hours): Temp Pulse Resp BP Pulse Ox 98.1 F 84 20 138/81 96 09/17/16 07:29 09/17/16 07:29 09/17/16 07:29 09/17/16 07:29 09/17/16 07:29 - Medications Medications: Current Medications Albuterol/Ipratropium (Duoneb 3 Mg/0.5 Mg (3 Ml) Ud) 3 ml INH RQ4 KARLIE Last Admin: 09/17/16 08:28 Dose: 3 ml Benzocaine/Menthol (Cepacol Sore Throat) 1 aden MT Q6 PRN PRN Reason: Sore Throat Last Admin: 09/17/16 05:30 Dose: 1 aden Furosemide (Lasix) 40 mg PO DAILY [facility] Last Admin: 09/16/16 14:05 Dose: 40 mg Guaifenesin/Dextromethorphan (Robitussin Dm) 5 ml PO Q4H PRN PRN Reason: Cough Last Admin: 09/17/16 05:29 Dose: 5 ml Heparin Sodium (Porcine) (Heparin) 5,000 units SC Q8 [facility] Last Admin: 09/17/16 05:28 Dose: 5,000 units Methylprednisolone (Solu-Medrol) 60 mg IV Q8H [facility] Last Admin: 09/17/16 05:28 Dose: 60 mg Montelukast Sodium (Singulair) 10 mg PO HS [facility] Last Admin: 09/16/16 21:21 Dose: 10 mg Moxifloxacin HCl (Avelox) 400 mg PO DAILY [facility] Potassium Chloride (K-Dur 20 Meq Er Tab) 40 meq PO ONCE ONE Stop: 09/17/16 10:01 Saccharomyces Boulardii (Florastor) 250 mg PO BID [facility] Last Admin: 09/16/16 18:41 Dose: 250 mg - Labs Labs: 09/17/16 07:39 09/17/16 07:39 PT 11.4 SECONDS (9.7-12.2) 09/14/16 07:24 INR 1.0 09/14/16 07:24 APTT 31 SECONDS (21-34) 09/14/16 07:24 Assessment and Plan (1) Pneumonia Status: Acute (2) Shortness of breath Status: Acute (3) Asthma Status: Chronic (4) Pulmonary fibrosis Status: Chronic (5) Pedal edema Status: Acute (6) Prophylactic measure Status: Acute
[2016-09-17] MEDS: Saccharomyces Boulardi 250 mg Cap PO SCH (09:39)
[2016-09-17] MEDS ORDERED: Potassium Chloride 20 mEq ER Tab PO ONE (10:00)
--- NOTE | 2016-09-17 11:56 | CP.PCM.PN ---
Subjective - Date & Time of Evaluation Date of Evaluation: 09/17/16 Time of Evaluation: 09:00 - Subjective Subjective: Patient seen and examined. Still complaining off cough but breathing is improved Denies fever chills, denies chest pain Objective - Vital Signs/Intake and Output Vital Signs (last 24 hours): Temp Pulse Resp BP Pulse Ox 98.1 F 84 20 138/81 96 09/17/16 07:29 09/17/16 07:29 09/17/16 07:29 09/17/16 09:38 09/17/16 07:29 - Medications Medications: Current Medications Albuterol/Ipratropium (Duoneb 3 Mg/0.5 Mg (3 Ml) Ud) 3 ml INH RQ4 [facility] Last Admin: 09/17/16 11:35 Dose: 3 ml Benzocaine/Menthol (Cepacol Sore Throat) 1 aden MT Q6 PRN PRN Reason: Sore Throat Last Admin: 09/17/16 09:39 Dose: 1 aden Furosemide (Lasix) 40 mg PO DAILY [facility] Last Admin: 09/17/16 09:38 Dose: 40 mg Guaifenesin/Dextromethorphan (Robitussin Dm) 5 ml PO Q4H PRN PRN Reason: Cough Last Admin: 09/17/16 09:39 Dose: 5 ml Heparin Sodium (Porcine) (Heparin) 5,000 units SC Q8 [facility] Last Admin: 09/17/16 05:28 Dose: 5,000 units Methylprednisolone (Solu-Medrol) 60 mg IV Q8H [facility] Last Admin: 09/17/16 05:28 Dose: 60 mg Montelukast Sodium (Singulair) 10 mg PO HS [facility] Last Admin: 09/16/16 21:21 Dose: 10 mg Moxifloxacin HCl (Avelox) 400 mg PO DAILY [facility] Last Admin: 09/17/16 09:38 Dose: 400 mg Saccharomyces Boulardii (Florastor) 250 mg PO BID [facility] Last Admin: 09/17/16 09:39 Dose: 250 mg - Labs Labs: 09/17/16 07:39 09/17/16 07:39 PT 11.4 SECONDS (9.7-12.2) 09/14/16 07:24 INR 1.0 09/14/16 07:24 APTT 31 SECONDS (21-34) 09/14/16 07:24 - Constitutional Appears: No Acute Distress - Head Exam Head Exam: ATRAUMATIC, NORMOCEPHALIC - Eye Exam Eye Exam: Normal appearance - ENT Exam ENT Exam: Mucous Membranes Moist - Neck Exam Neck Exam: Normal Inspection - Respiratory Exam Respiratory Exam: Rales, Rhonchi - Cardiovascular Exam Cardiovascular Exam: REGULAR RHYTHM - GI/Abdominal Exam GI & Abdominal Exam: Soft, Normal Bowel Sounds Assessment and Plan (1) Pulmonary fibrosis Assessment & Plan: discharge patient home on prednisone, and antitussives Follow up in the office Status: Chronic (2) Shortness of breath Status: Acute
--- NOTE | 2016-09-17 12:48 | CARD ---
APPROVED REPORT EXAM: Two-dimensional and M-mode echocardiogram with Doppler and color Doppler. Other Information Quality : GoodRhythm : NSR INDICATION Dyspnea EDEMA M-Mode DIMENSIONS RVDd1.55 (2.1-3.2cm)Left Atrium (MM)3.61 (2.5-4.0cm) IVSd0.70 (0.7-1.1cm)Aortic Root3.06 (2.2-3.7cm) LVDd5.90 (4.0-5.6cm)Aortic Cusp Exc.1.77 (1.5-2.0cm) PWd0.92 (0.7-1.1cm)FS (%) 35 % LVDs3.84 (2.0-3.8cm)LVEF (%)63 (>50%) Mitral Valve MV E Ogezpnsr559.3cm/sMV A Bhwuwcwl943.7cm/sE/A ratio1.1 TDI E/Lateral E'0.0E/Medial E'0.0 Tricuspid Valve TR Peak [id number]/sTR Peak Gr.[id number] LEFT VENTRICLE The left ventricle is normal size. There is normal left ventricular wall thickness. The left ventricular function is normal. The left ventricular ejection fraction is within the normal range. There is normal LV segmental wall motion. The left ventricular diastolic function is normal. RIGHT VENTRICLE The right ventricle is normal size. ATRIA The left atrium size is normal. The right atrium size is normal. AORTIC VALVE The aortic valve is normal in structure. MITRAL VALVE Mitral regurgitation is trace. TRICUSPID VALVE There is mild to moderate tricuspid regurgitation. <Conclusion> Normal LV systolic function. Normal chamber size. Trace MR. Trace to mild TR.
[2016-09-17 16:39] VITALS: BP 133/79; PULSE 81; TEMP 98.4; O2SAT 93
--- NOTE | 2016-09-17 21:25 | CP.PCM.DIS ---
<Kathy Rios - Last Filed: 09/17/16 21:22> Provider - Provider Date of Admission: 09/12/16 21:45 Attending physician: Danial Mccann MD Primary care physician: Dr. Maya Consults: Dr. Mathur- concession attendant Time Spent in preparation of Discharge (in minutes): 45 Diagnosis - Discharge Diagnosis (1) Pneumonia Status: Resolved Comment: See hospital summary for further details. (2) Shortness of breath Status: Resolved Comment: See hospital summary for further details. (3) Asthma Status: Chronic Comment: See hospital summary for further details. (4) Pulmonary fibrosis Status: Chronic Comment: See hospital summary for further details. (5) Pedal edema Status: Resolved Comment: See hospital summary for further details. Hospital Course - Lab Results Lab Results: Micro Results 09/13/16 07:31 Sputum Gram Stain - Final 09/13/16 07:31 Sputum Sputum Culture - Final Klebsiella Pneumoniae Ssp Pneu Most Recent Lab Values WBC 11.2 K/uL (4.8-10.8) H 09/17/16 07:39 RBC 4.80 Mil/uL (3.80-5.20) 09/17/16 07:39 Hgb 13.1 g/dL (11.0-16.0) 09/17/16 07:39 Hct 40.6 % (34.0-47.0) 09/17/16 07:39 MCV 84.6 fL (81.0-99.0) 09/17/16 07:39 MCH 27.4 pg (27.0-31.0) 09/17/16 07:39 MCHC 32.4 g/dL (33.0-37.0) L 09/17/16 07:39 RDW 16.0 % (11.5-14.5) H 09/17/16 07:39 Plt Count 238 K/uL (130-400) 09/17/16 07:39 MPV 9.4 fL (7.2-11.7) 09/17/16 07:39 Neut % (Auto) 86.4 % (50.0-75.0) H 09/17/16 07:39 Lymph % (Auto) 6.4 % (20.0-40.0) L 09/17/16 07:39 Vance % (Auto) 7.1 % (0.0-10.0) 09/17/16 07:39 Eos % (Auto) 0.0 % (0.0-4.0) 09/17/16 07:39 Baso % (Auto) 0.1 % (0.0-2.0) 09/17/16 07:39 Neut # 9.7 K/uL (1.8-7.0) H 09/17/16 07:39 Lymph # 0.7 K/uL (1.0-4.3) L 09/17/16 07:39 Vance # 0.8 K/uL (0.0-0.8) 09/17/16 07:39 Eos # 0.0 K/uL (0.0-0.7) 09/17/16 07:39 Baso # 0.0 K/uL (0.0-0.2) 09/17/16 07:39 Neutrophils % (Manual) 85 % (50-75) H 09/17/16 07:39 Lymphocytes % (Manual) 8 % (20-40) L 09/17/16 07:39 Monocytes % (Manual) 6 % (0-10) 09/17/16 07:39 Myelocytes % 1 % (0-0) H 09/17/16 07:39 Toxic Granulation Present 09/14/16 07:24 Platelet Estimate Normal (NORMAL) 09/17/16 07:39 Large Platelets Present 09/15/16 06:48 Giant Platelets Present 09/15/16 06:48 RBC Morphology Normal 09/17/16 07:39 PT 11.4 SECONDS (9.7-12.2) 09/14/16 07:24 INR 1.0 09/14/16 07:24 APTT 31 SECONDS (21-34) 09/14/16 07:24 Puncture Site Lr 09/13/16 18:30 pCO2 44 mm/Hg (35-45) 09/13/16 18:30 pO2 184 mm/Hg (80-100) H 09/13/16 18:30 HCO3 24.7 mmol/L (21-28) 09/13/16 18:30 ABG pH 7.37 (7.35-7.45) 09/13/16 18:30 ABG Total CO2 26.8 mmol/L (22-28) 09/13/16 18:30 ABG O2 Saturation 99.7 % (95-98) H 09/13/16 18:30 ABG Base Excess -0.2 mmol/L (-2.0-3.0) 09/13/16 18:30 ABG Hemoglobin 13.8 g/dL (11.7-17.4) 09/13/16 18:30 ABG Carboxyhemoglobin 2.1 % (0.5-1.5) H 09/13/16 18:30 POC ABG HHb (Measured) 0.3 % (0.0-5.0) 09/13/16 18:30 ABG Methemoglobin 1.5 % (0.0-3.0) 09/13/16 18:30 Ramirez Test P 09/13/16 18:30 A-a O2 Difference 118.0 mm/Hg 09/13/16 18:30 Respiratory Index 0.6 09/13/16 18:30 Hgb O2 Saturation 96.0 % (95.0-98.0) 09/13/16 18:30 FiO2 50.0 % 09/13/16 18:30 Inspiratory BiPAP 10 09/13/16 18:30 Expiratory BiPAP 5 09/13/16 18:30 Sodium 140 mmol/L (132-148) 09/17/16 07:39 Potassium 3.2 mmol/L (3.6-5.2) L 09/17/16 07:39 Chloride 99 mmol/L (98-107) 09/17/16 07:39 Carbon Dioxide 32 mmol/L (22-30) H 09/17/16 07:39 Anion Gap 12 (10-20) 09/17/16 07:39 BUN 19 mg/dL (7-17) H 09/17/16 07:39 Creatinine 0.7 MG/DL (0.7-1.2) 09/17/16 07:39 Est GFR ( Amer) > 60 09/17/16 07:39 Est GFR (Non-Af Amer) > 60 09/17/16 07:39 Random Glucose 200 mg/dL (65-105) H 09/17/16 07:39 Hemoglobin A1c 6.2 % (4.2-6.5) 09/15/16 06:48 Calcium 8.3 mg/dl (8.6-10.4) L 09/17/16 07:39 Phosphorus 3.6 mg/dL (2.5-4.5) 09/17/16 07:39 Magnesium 2.3 mg/dL (1.6-2.3) 09/17/16 07:39 Total Bilirubin 0.6 mg/dL (0.2-1.3) 09/17/16 07:39 AST 23 U/L (14-36) 09/17/16 07:39 ALT 37 U/L (9-52) 09/17/16 07:39 Alkaline Phosphatase 67 U/L (38-126) 09/17/16 07:39 Troponin I < 0.0120 ng/mL (0.00-0.120) 09/12/16 20:52 NT-Pro-B Natriuret Pep 647 pg/mL (0-900) 09/12/16 20:52 Total Protein 6.2 g/dL (6.3-8.3) L 09/17/16 07:39 Albumin 3.1 g/dL (3.5-5.0) L 09/17/16 07:39 Globulin 3.1 gm/dL (2.2-3.9) 09/17/16 07:39 Albumin/Globulin Ratio 1.0 (1.0-2.1) 09/17/16 07:39 Urine Color Colorless (YELLOW) 09/15/16 20:56 Urine Clarity Clear (Clear) 09/15/16 20:56 Urine pH 6.0 (5.0-8.0) 09/15/16 20:56 Ur Specific [place] 1.004 (1.003-1.030) 09/15/16 20:56 Urine Protein Negative mg/dL (NEGATIVE) 09/15/16 20:56 Urine Glucose (UA) Normal mg/dL (Normal) 09/15/16 20:56 Urine Ketones Negative mg/dL (NEGATIVE) 09/15/16 20:56 Urine Blood Negative (NEGATIVE) 09/15/16 20:56 Urine Nitrate Negative (NEGATIVE) 09/15/16 20:56 Urine Bilirubin Negative (NEGATIVE) 09/15/16 20:56 Urine Urobilinogen Normal mg/dL (0.2-1.0) 09/15/16 20:56 Ur Leukocyte Esterase Neg Lisa/uL (Negative) 09/15/16 20:56 Urine WBC (Auto) < 1 /hpf (0-5) 09/15/16 20:56 Urine RBC (Auto) < 1 /hpf (0-3) 09/15/16 20:56 Ur Squamous Epith Cells < 1 /hpf (0-5) 09/15/16 20:56 Influenza Typ A,B (EIA) Negative for flu a/b (NEGATIVE) 09/13/16 00:54 - Hospital Course Hospital Course: CC: shortness of breath HPI: 71 year old female with PMHx significant for asthma and pulmonary fibrosis presents with complaints of cough and shortness of breath of three days duration. Patient states that the symptoms became unbearable prompting her to come to the ED. She describes the cough as productive with a yellow-white phlegm. She states that she has had a history of pulmonary fibrosis for many years requiring treatment. She admits to being febrile though she did not check with a thermometer. She admits to headaches, shortness of breath and cough. She admits to being in the presence of a passerby with a cough. She denies chest pain, palpitations, leg pain, back pain, paresthesias, nausea, vomiting, diarrhea or constipation at this time. Patient was admitted for shortness of breath and productive cough. In the ED, influenza cultures were negative, chest xray in the left lower lung field. A follow up chest CT showed findings consistent with pulmonary fibrosis, no significant interval changes, mild cardiomegaly, and pulmonary hypertension. Pulmonology was consulted (Dr. Mathur). Sputum cultures were positive for Klebsiella Pneumonia. Patient was started on Avelox 400mg PO Daily for a total of 5 days and a Prednisone taper. This is a summary of the hospital course. Please see chart for details. Patient is stable for discharge to home per Dr. Viera. Patient is to resume all home medication and start new medications listed below New medication: Avelox 400mg PO, 1 tablet Daily for 4 days. Prednisone taper: take 4 tabs for 3 days, then 3 tabs for 3 days, then 2 tabs for 3 days, then 1 tab for 3 days. Please follow up with your PMD, Dr. Maya within one week of discharge. Please follow up with your Handy Worker, Dr. Mathur, within one week of discharge. These instructions have been discussed with patient who understands. If patient has any concerns, patient should return to the ED. Discharge Exam - Head Exam Head Exam: ATRAUMATIC, NORMAL INSPECTION, NORMOCEPHALIC - Eye Exam Eye Exam: EOMI, Normal appearance - ENT Exam ENT Exam: Mucous Membranes Moist - Respiratory Exam Respiratory Exam: Decreased Breath Sounds, Wheezes, NORMAL BREATHING PATTERN - Cardiovascular Exam Cardiovascular Exam: REGULAR RHYTHM, +S1, +S2 - GI/Abdominal Exam GI & Abdominal Exam: Normal Bowel Sounds, Soft, Unremarkable. absent: Tenderness - Extremities Exam Extremities exam: normal inspection - Neurological Exam Neurological exam: Alert, Oriented x3 - Psychiatric Exam Psychiatric exam: Depressed, Normal Affect - Skin Skin Exam: Dry, Intact, Normal Color, Warm Discharge Plan - Discharge Medications Prescriptions: Furosemide [Lasix] 1 tab PO DAILY #30 guaiFENesin/Dextromethorphan [Robitussin DM] 5 ml PO Q4H PRN #1 bottle PRN Reason: Cough Moxifloxacin [Avelox] 400 mg PO DAILY #4 tab Potassium Chloride [K-Dur 20] 20 meq PO DAILY #30 tab - Follow Up Plan Condition: FAIR Disposition: HOME/ ROUTINE Instructions: Guaifenesin (By mouth), Moxifloxacin (By mouth), Pulmonary Fibrosis (DC), Bronchiectasis (DC), How Your Lungs Work (DC) Additional Instructions: Patient is stable for discharge to home per Dr. Viera. Patient is to resume all home medication and start new medications listed below New medication: Avelox 400mg PO, 1 tablet Daily for 4 days. Prednisone taper: take 4 tabs for 3 days, then 3 tabs for 3 days, then 2 tabs for 3 days, then 1 tab for 3 days. Please follow up with your PMD, Dr. Maya within one week of discharge. Please follow up with your Handy Worker, Dr. Mathur, within one week of discharge. These instructions have been discussed with patient who understands. If patient has any concerns, patient should return to the ED. Referrals: Allen Mathur MD [Staff Provider] - Marcel Maya MD [Staff Provider] - <Clovis Viera - Last Filed: 09/18/16 09:34> Provider - Provider Date of Admission: 09/12/16 21:45 Attending physician: Danial Mccann MD Hospital Course - Lab Results Lab Results: Micro Results 09/13/16 07:31 Sputum Gram Stain - Final 09/13/16 07:31 Sputum Sputum Culture - Final Klebsiella Pneumoniae Ssp Pneu Most Recent Lab Values WBC 11.2 K/uL (4.8-10.8) H 09/17/16 07:39 RBC 4.80 Mil/uL (3.80-5.20) 09/17/16 07:39 Hgb 13.1 g/dL (11.0-16.0) 09/17/16 07:39 Hct 40.6 % (34.0-47.0) 09/17/16 07:39 MCV 84.6 fL (81.0-99.0) 09/17/16 07:39 MCH 27.4 pg (27.0-31.0) 09/17/16 07:39 MCHC 32.4 g/dL (33.0-37.0) L 09/17/16 07:39 RDW 16.0 % (11.5-14.5) H 09/17/16 07:39 Plt Count 238 K/uL (130-400) 09/17/16 07:39 MPV 9.4 fL (7.2-11.7) 09/17/16 07:39 Neut % (Auto) 86.4 % (50.0-75.0) H 09/17/16 07:39 Lymph % (Auto) 6.4 % (20.0-40.0) L 09/17/16 07:39 Vance % (Auto) 7.1 % (0.0-10.0) 09/17/16 07:39 Eos % (Auto) 0.0 % (0.0-4.0) 09/17/16 07:39 Baso % (Auto) 0.1 % (0.0-2.0) 09/17/16 07:39 Neut # 9.7 K/uL (1.8-7.0) H 09/17/16 07:39 Lymph # 0.7 K/uL (1.0-4.3) L 09/17/16 07:39 Vance # 0.8 K/uL (0.0-0.8) 09/17/16 07:39 Eos # 0.0 K/uL (0.0-0.7) 09/17/16 07:39 Baso # 0.0 K/uL (0.0-0.2) 09/17/16 07:39 Neutrophils % (Manual) 85 % (50-75) H 09/17/16 07:39 Lymphocytes % (Manual) 8 % (20-40) L 09/17/16 07:39 Monocytes % (Manual) 6 % (0-10) 09/17/16 07:39 Myelocytes % 1 % (0-0) H 09/17/16 07:39 Toxic Granulation Present 09/14/16 07:24 Platelet Estimate Normal (NORMAL) 09/17/16 07:39 Large Platelets Present 09/15/16 06:48 Giant Platelets Present 09/15/16 06:48 RBC Morphology Normal 09/17/16 07:39 PT 11.4 SECONDS (9.7-12.2) 09/14/16 07:24 INR 1.0 09/14/16 07:24 APTT 31 SECONDS (21-34) 09/14/16 07:24 Puncture Site Lr 09/13/16 18:30 pCO2 44 mm/Hg (35-45) 09/13/16 18:30 pO2 184 mm/Hg (80-100) H 09/13/16 18:30 HCO3 24.7 mmol/L (21-28) 09/13/16 18:30 ABG pH 7.37 (7.35-7.45) 09/13/16 18:30 ABG Total CO2 26.8 mmol/L (22-28) 09/13/16 18:30 ABG O2 Saturation 99.7 % (95-98) H 09/13/16 18:30 ABG Base Excess -0.2 mmol/L (-2.0-3.0) 09/13/16 18:30 ABG Hemoglobin 13.8 g/dL (11.7-17.4) 09/13/16 18:30 ABG Carboxyhemoglobin 2.1 % (0.5-1.5) H 09/13/16 18:30 POC ABG HHb (Measured) 0.3 % (0.0-5.0) 09/13/16 18:30 ABG Methemoglobin 1.5 % (0.0-3.0) 09/13/16 18:30 Ramirez Test P 09/13/16 18:30 A-a O2 Difference 118.0 mm/Hg 09/13/16 18:30 Respiratory Index 0.6 09/13/16 18:30 Hgb O2 Saturation 96.0 % (95.0-98.0) 09/13/16 18:30 FiO2 50.0 % 09/13/16 18:30 Inspiratory BiPAP 10 09/13/16 18:30 Expiratory BiPAP 5 09/13/16 18:30 Sodium 140 mmol/L (132-148) 09/17/16 07:39 Potassium 3.2 mmol/L (3.6-5.2) L 09/17/16 07:39 Chloride 99 mmol/L (98-107) 09/17/16 07:39 Carbon Dioxide 32 mmol/L (22-30) H 09/17/16 07:39 Anion Gap 12 (10-20) 09/17/16 07:39 BUN 19 mg/dL (7-17) H 09/17/16 07:39 Creatinine 0.7 MG/DL (0.7-1.2) 09/17/16 07:39 Est GFR ( Amer) > 60 09/17/16 07:39 Est GFR (Non-Af Amer) > 60 09/17/16 07:39 Random Glucose 200 mg/dL (65-105) H 09/17/16 07:39 Hemoglobin A1c 6.2 % (4.2-6.5) 09/15/16 06:48 Calcium 8.3 mg/dl (8.6-10.4) L 09/17/16 07:39 Phosphorus 3.6 mg/dL (2.5-4.5) 09/17/16 07:39 Magnesium 2.3 mg/dL (1.6-2.3) 09/17/16 07:39 Total Bilirubin 0.6 mg/dL (0.2-1.3) 09/17/16 07:39 AST 23 U/L (14-36) 09/17/16 07:39 ALT 37 U/L (9-52) 09/17/16 07:39 Alkaline Phosphatase 67 U/L (38-126) 09/17/16 07:39 Troponin I < 0.0120 ng/mL (0.00-0.120) 09/12/16 20:52 NT-Pro-B Natriuret Pep 647 pg/mL (0-900) 09/12/16 20:52 Total Protein 6.2 g/dL (6.3-8.3) L 09/17/16 07:39 Albumin 3.1 g/dL (3.5-5.0) L 09/17/16 07:39 Globulin 3.1 gm/dL (2.2-3.9) 09/17/16 07:39 Albumin/Globulin Ratio 1.0 (1.0-2.1) 09/17/16 07:39 Urine Color Colorless (YELLOW) 09/15/16 20:56 Urine Clarity Clear (Clear) 09/15/16 20:56 Urine pH 6.0 (5.0-8.0) 09/15/16 20:56 Ur Specific [place] 1.004 (1.003-1.030) 09/15/16 20:56 Urine Protein Negative mg/dL (NEGATIVE) 09/15/16 20:56 Urine Glucose (UA) Normal mg/dL (Normal) 09/15/16 20:56 Urine Ketones Negative mg/dL (NEGATIVE) 09/15/16 20:56 Urine Blood Negative (NEGATIVE) 09/15/16 20:56 Urine Nitrate Negative (NEGATIVE) 09/15/16 20:56 Urine Bilirubin Negative (NEGATIVE) 09/15/16 20:56 Urine Urobilinogen Normal mg/dL (0.2-1.0) 09/15/16 20:56 Ur Leukocyte Esterase Neg Lisa/uL (Negative) 09/15/16 20:56 Urine WBC (Auto) < 1 /hpf (0-5) 09/15/16 20:56 Urine RBC (Auto) < 1 /hpf (0-3) 09/15/16 20:56 Ur Squamous Epith Cells < 1 /hpf (0-5) 09/15/16 20:56 Influenza Typ A,B (EIA) Negative for flu a/b (NEGATIVE) 09/13/16 00:54 Attending/Attestation - Attestation I have personally seen and examined this patient.: Yes I have fully participated in the care of the patient.: Yes I have reviewed all pertinent clinical information, including history, physical exam and plan: Yes Notes (Text): 09/18/16 09:33 Patient was seen and examined at bedside with the resident She states that the cough is improved. I discussed with the concession attendant Dr. Mathur Patient is cleared for discharge on oral prednisone and oral antibiotic Patient will follow up Dr. Mathur in the office I discussed the discharge plan with the patient and she verbalized understanding I agree with the discharge note by the resident
== END 2016-09-17 18:30 | disposition home or self-care (01) | DRG 179 ==
LOC: C.ER 19:59 → C.3T 21:45
PROVIDERS: ADMIT Internal Medicine Critical Care Medicine; ATTEND Internal Medicine
DX: J15.0 Pneumonia due to Klebsiella pneumoniae (principal); I27.2 Other secondary pulmonary hypertension; J84.10 Pulmonary fibrosis, unspecified; J45.909 Unspecified asthma, uncomplicated; Z87.01 Personal history of pneumonia (recurrent)

== ENCOUNTER 2016-12-11 18:43 | Inpatient (IN) | payer OTHER ==
[2016-12-11 18:44] VITALS: BMI 71.2
--- NOTE | 2016-12-11 20:07 | C.PDOC ---
History Of Present Illness Patient presents to the ED with complaints of shortness of breath for three days. Patients notes previously being treated for an upper respiratory infection. Patient is speaking in complete sentences and denies fever, chills, nausea, vomiting, and cough. Time Seen by Provider: 12/11/16 20:07 Chief Complaint (Nursing): Shortness Of Breath History Per: Patient History/Exam Limitations: no limitations Onset/Duration Of Symptoms: Days (3 days ) Current Symptoms Are (Timing): Still Present Severity: Moderate Pain Scale Rating Of: 4 Associated Symptoms: denies: Fever, Chills, Chest Pain, Bloody Cough, Productive Cough Reports Recently: Treated By A Physician Recent travel outside of the [place]: No Past Medical History Reviewed: Historical Data, Nursing Documentation, Vital Signs Vital Signs: Last Vital Signs Temp 97.9 F 12/11/16 19:03 Pulse 76 12/11/16 20:27 Resp 22 12/11/16 20:27 BP 125/80 12/11/16 20:27 Pulse Ox 82 L 12/11/16 21:02 - Medical History PMH: Arthritis, Asthma, Bronchitis, Fractures (dislocation of elbow 2013), Pneumonia Denies: Anxiety, Chronic Kidney Disease - [facility] Procedures CL REDUC DISLOC-ELBOW (09/23/13) Family History: States: No Known Family Hx - Social History Hx Tobacco Use: No Hx Alcohol Use: No Hx Substance Use: No - Immunization History Hx Tetanus Toxoid Vaccination: No Hx Influenza Vaccination: Yes Hx Pneumococcal Vaccination: No Review Of Systems Constitutional: Negative for: Fever, Chills Eyes: Negative for: Redness ENT: Negative for: Throat Pain Cardiovascular: Negative for: Chest Pain Respiratory: Positive for: Shortness of Breath Gastrointestinal: Negative for: Nausea, Vomiting Genitourinary: Negative for: Dysuria Musculoskeletal: Negative for: Back Pain Skin: Negative for: Rash Neurological: Negative for: Weakness Psych: Negative for: Anxiety Physical Exam - Physical Exam Appears: Non-toxic, No Acute Distress Skin: Warm, Dry Head: Normacephalic Eye(s): bilateral: Normal Inspection Oral Mucosa: Moist Neck: Trachea Midline, Supple Chest: Symmetrical Cardiovascular: Rhythm Regular Respiratory: No Rales, Rhonchi (scattered), No Wheezing Gastrointestinal/Abdominal: Soft, No Tenderness, No Distention Back: No CVA Tenderness Extremity: Pedal Edema (trace) Extremity: Bilateral: Atraumatic, Normal Color And Temperature Pulses: Left Dorsalis Pedis: Normal, Right Dorsalis Pedis: Normal Neurological/Psych: Oriented x3, Normal Speech, Normal Cognition Gait: Steady ED Course And Treatment - Laboratory Results Result Diagrams: 12/11/16 20:28 12/11/16 20:28 ECG: Interpreted By Me, Viewed By Me ECG Rhythm: Sinus Rhythm (74), Nonspecific Changes O2 Sat by Pulse Oximetry: 82 (room air ) Pulse Ox Interpretation: Abnormal - Radiology CXR: Interpreted by Me, Viewed By Me CXR Interpretation: Yes: Other (pulmonary fibrosis, unchanged from 09/12/16). No : Infiltrates, Fracture, Pnemothorax Disposition Discussed With Dr.: Danial Mccann Comment: accepted the pt on his service and took over the care at 9:45 PM Doctor Will See Patient In The: ED Counseled Patient/Family Regarding: Studies Performed, Diagnosis - Disposition Disposition: HOSPITALIZED Disposition Time: 20:07 Condition: FAIR Forms: [employer] ([place]an) - POA Present On Arrival: Poor Glycemic Control - Clinical Impression Clinical Impression: Dyspnea, Pulmonary fibrosis, Hypoxia - Scribe Statement The provider has reviewed the documentation as recorded by the Scribe Alejandrina Pablo All medical record entries made by the Scribe were at my direction and personally dictated by me. I have reviewed the chart and agree that the record accurately reflects my personal performance of the history, physical exam, medical decision making, and the department course for this patient. I have also personally directed, reviewed, and agree with the discharge instructions and disposition. Decision To Admit - Pt Status Changed To: Hospital Disposition Of: Inpatient - Admit Certification Admit to Inpatient:: After my assessment, the patient will require hospitalization for at least two midnights. This is because of the severity of symptoms shown, intensity of services needed, and/or the medical risk in this patient being treated as an outpatient. - InPatient: Physician Admission Certification: I certify that this patient requires 2 or more midnights of care for the following reason:: After my assessment, the patient will require hospitalization for at least two midnights. This is because of the severity of symptoms shown, intensity of services needed, and/or the medical risk in this patient being treated as an outpatient. - . Bed Request Type: Regular Admitting Physician: Danial Mccann Patient Diagnosis: Dyspnea, Pulmonary fibrosis, Hypoxia
[2016-12-11 20:40] LABS: VENOUS BLOOD GAS BASE EXCESS 3.3 mmol/L (0.0-2.0); VENOUS BLOOD GAS PCO2 48 mmHg (40-60); VENOUS BLOOD PH 7.39 (7.32-7.43)
[2016-12-11 20:42] LABS: NRBC % 0.1 % (0.0-2.0)
[2016-12-11 20:44] LABS: CHLORIDE 108 mmol/L (98-107); SODIUM 144 mmol/L (132-148)
[2016-12-11 20:45] LABS: POTASSIUM 3.6 mmol/L (3.6-5.2)
[2016-12-11 20:46] LABS: BASO # 0.3 K/uL (0.0-0.2); BASO % 3.4 % (0.0-2.0); EOS % 10.2 % (0.0-4.0); HEMATOCRIT 42.1 % (34.0-47.0); LYMPH # 2.7 K/uL (1.0-4.3); LYMPH % 26.9 % (20.0-40.0); MEAN CELL VOLUME 88.2 fL (81.0-99.0); MEAN CORPUSCULAR HEMOGLOBIN 29.9 pg (27.0-31.0); MEAN CORPUSCULAR HGB CONC 33.9 g/dL (33.0-37.0); MEAN PLATELET VOLUME 9.1 fL (7.2-11.7); MONO # 1.3 K/uL (0.0-0.8); MONO % 12.6 % (0.0-10.0); PLATELET COUNT 247 K/uL (130-400); RED CELL DISTRIBUTION WIDTH 16.2 % (11.5-14.5)
[2016-12-11 20:47] LABS: ALB/GLOB RATIO 1.1 (1.0-2.1); ALKALINE PHOSPHATASE 76 U/L (38-126); ALT/SGPT 26 U/L (9-52); AST/SGOT 28 U/L (14-36); BILIRUBIN,TOTAL 0.5 mg/dL (0.2-1.3); BLOOD UREA NITROGEN 9 mg/dL (7-17); CARBON DIOXIDE 26 mmol/L (22-30); GFR AFRICAN-AMERICAN > 60; GLUCOSE,RANDOM 112 mg/dL (65-105); TOTAL PROTEIN 6.9 g/dL (6.3-8.3)
[2016-12-11 20:48] LABS: CALCIUM 8.6 mg/dl (8.6-10.4)
[2016-12-11 21:03] LABS: RBC URINE 3 /hpf (0-3); URINE BACTERIA RARE (<OCC); URINE BILIRUBIN NEGATIVE (NEGATIVE); URINE BLOOD NEGATIVE (NEGATIVE); URINE COLOR Yellow (YELLOW); URINE GLUCOSE (UA) NORMAL (Normal); URINE KETONE NEGATIVE (NEGATIVE); URINE LEUKOCYTE ESTERASE NEG Leu/uL (Negative); URINE PROTEIN NEGATIVE (NEGATIVE); URINE UROBILINOGEN NORMAL mg/dL (0.2-1.0); WBC URINE 3 /hpf (0-5)
[2016-12-11] MEDS: Albuterol-Ipratrop 3 mg / 0.5 (3 ml) UD IH SCH ×3 (21:15→21:39)
[2016-12-11] MEDS ORDERED: Albuterol-Ipratrop 3 mg / 0.5 (3 ml) UD ONE (21:17)
[2016-12-11 21:42] LABS: BASOPHIL 2 % (0-2); EOSINOPHIL 9 % (0-4); NEUTROPHIL 49 % (50-75); REACTIVE LYMPHOCYTES 6 % (0-0); TOTAL CELLS COUNTED 100
[2016-12-11] MEDS ORDERED: Albuterol 0.042% Inhal Sol (1.25 mg/3 mL) UD INH PRN (23:03)
--- NOTE | 2016-12-11 23:06 | CP.PCM.HP ---
<TommyEsther MoraMorgan - Last Filed: 12/11/16 23:46> History of Present Illness - History of Present Illness History of Present Illness: CC: "shortness of breath" HPI:71 year old female with past medical history significant for asthma and pulmonary fibrosis presents with complaints of shortness of breath for three days duration. Patient states that the symptoms became unbearable prompting her to come to the emergency room. She also states she has cough with a yellow- white phlegm. She states that she has had a history of pulmonary fibrosis for many years requiring treatment. She admits to being febrile though she did not check with a thermometer. She admits to headaches, shortness of breath, cough, sweating, and chills. She states she uses her nebulizer 4x per day, albuterol about 4x per day and her Adviar about 4x per day. She denies chest pain, palpitations, numbness, tingling, nausea, vomiting, diarrhea or constipation at this time. PMD - Dr. Marcel Maya PMH - pulmonary fibrosis, asthma PSH - possible bronchoscopy; otherwise no surgery Home meds - atrovent, albuterol pump, 3L of oxygen at home, Nintedonib 150mg, Advair Allergies - denies however the record indicates iodine; will confirm Family History - denies Social Hx - denies ever smoking, or usng drugs; admits to social alcohol use. 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 absent: Headache - EENT Eyes: absent: Blurred Vision, Change in Vision Nose/Mouth/Throat: Hoarsness - Cardiovascular Cardiovascular: Dyspnea. absent: Chest Pain, Lightheadedness, Palpitations - Respiratory Respiratory: Cough, Dyspnea - Gastrointestinal Gastrointestinal: absent: Constipation, Diarrhea, Nausea, Vomiting - Genitourinary Genitourinary: absent: Dysuria, Hematuria - Musculoskeletal Musculoskeletal: absent: Arthralgias, Numbness, Tingling - Neurological Neurological: absent: Dizziness, Numbness, Headaches, Tingling - Endocrine Endocrine: Excessive Sweating. absent: Palpitations Past Patient History - Past Medical History & Family History Past Medical History?: Yes - Past Social History Smoking Status: Never Smoked - CARDIAC Hx Cardiac Disorders: No - PULMONARY Hx Asthma: Yes Hx Bronchitis: Yes Hx Pneumonia: Yes - NEUROLOGICAL Hx Neurological Disorder: No - HEENT Hx HEENT Problems: No - RENAL Hx Chronic Kidney Disease: No - ENDOCRINE/METABOLIC Hx Endocrine Disorders: No - HEMATOLOGICAL/ONCOLOGICAL Hx Blood Disorders: No Hx Blood Transfusions: No - INTEGUMENTARY Hx Dermatological Problems: No - MUSCULOSKELETAL/RHEUMATOLOGICAL Hx Arthritis: Yes Hx Fractures: Yes (dislocation of elbow 2013) - GASTROINTESTINAL Hx Gastrointestinal Disorders: No - GENITOURINARY/GYNECOLOGICAL Hx Genitourinary Disorders: No - PSYCHIATRIC Hx Anxiety: No Hx Substance Use: No - SURGICAL HISTORY Hx Surgeries: Yes Other/Comment: 'LUNG SX'/BIOPSY? 2016 - ANESTHESIA Hx Anesthesia: Yes Hx Anesthesia Reactions: No Hx Malignant Hyperthermia: No Meds Allergies/Adverse Reactions: Allergies Allergy/AdvReac Type Severity Reaction Status Date / Time iodine Allergy Verified 12/11/16 19:09 Physical Exam - Constitutional Appears: In Acute Distress - Head Exam Head Exam: ATRAUMATIC, NORMAL INSPECTION, NORMOCEPHALIC - Eye Exam Eye Exam: EOMI, Normal appearance, PERRL Pupil Exam: NORMAL ACCOMODATION - ENT Exam ENT Exam: Mucous Membranes Moist, Normal Oropharynx - Respiratory Exam Respiratory Exam: Rales, Wheezes, Respiratory Distress Additional comments: 3L of nasal canula - Cardiovascular Exam Cardiovascular Exam: REGULAR RHYTHM, RRR, +S1, +S2 - GI/Abdominal Exam GI & Abdominal Exam: Normal Bowel Sounds, Soft. absent: Tenderness - Neurological Exam Neurological exam: Alert, Oriented x3 - Psychiatric Exam Psychiatric exam: Normal Affect, Normal Mood - Skin Skin Exam: Dry, Normal Color, Rash (rash on the left lower leg), Warm Results - Vital Signs Recent Vital Signs: Last Vital Signs Temp 98.1 F 12/11/16 22:42 Pulse 107 H 12/11/16 22:42 Resp 21 12/11/16 22:42 BP 118/63 12/11/16 22:42 Pulse Ox 95 12/11/16 22:42 - Labs Result Diagrams: 12/11/16 20:28 12/11/16 20:28 Assessment & Plan - Assessment and Plan (Free Text) Assessment: 1) Shortness of breath secondary to history of pulmonary fibrosis Cough with productive sputum- F/U sputum culture f/u Chest XRAY Duonebs Q6 KARLIE 1.25mg Albuterol Q3H PRN 3L NC 40mg Prednisone Ceftriaxone started 12/11 Doxycycline started 12/11 Pulmicort .5mg Q12H F/U Morning labs 2) Prophylactic SCDs Heparin SC Protonix Case discussed with Dr. Siobhan Sanders PGY-1 <Danial Mccann P - Last Filed: 12/12/16 07:38> Results - Vital Signs Recent Vital Signs: Last Vital Signs Temp 98.5 F 12/12/16 00:07 Pulse 99 H 12/12/16 00:07 Resp 18 12/12/16 02:10 BP 111/70 12/12/16 00:07 Pulse Ox 99 12/12/16 00:07 - Labs Result Diagrams: 12/11/16 20:28 12/11/16 20:28 Labs: Laboratory Results - last 24 hr 12/12/16 07:06 POC Glucose (mg/dL) 93 Attending/Attestation - Attestation I have personally seen and examined this patient.: Yes I have fully participated in the care of the patient.: Yes I have reviewed all pertinent clinical information: Yes Notes (Text): Agreed with above currently treating like PNA in presence of pulm fibrosis, patient also has hoarseness of voice and uses advair discus 4 times/day, which increase risk if laryngeal fungal infections if it persist then would empirically give diflucan 100mg daily x7 d, if still persist may need to see ENT as out patient.
[2016-12-12] MEDS: Albuterol-Ipratrop 3 mg / 0.5 (3 ml) UD INH SCH ×4 (06:29→20:18)
[2016-12-12 08:05] LABS: BASO # 0.2 K/uL (0.0-0.2); BASO % 1.9 % (0.0-2.0); EOS # 0.8 K/uL (0.0-0.7); EOS % 8.6 % (0.0-4.0); HEMATOCRIT 39.8 % (34.0-47.0); LYMPH # 2.3 K/uL (1.0-4.3); LYMPH % 23.8 % (20.0-40.0); MEAN CELL VOLUME 89.2 fL (81.0-99.0); MEAN CORPUSCULAR HEMOGLOBIN 29.6 pg (27.0-31.0); MEAN CORPUSCULAR HGB CONC 33.2 g/dL (33.0-37.0); MEAN PLATELET VOLUME 9.1 fL (7.2-11.7); MONO % 10.6 % (0.0-10.0); NRBC % 0.1 % (0.0-2.0); RED CELL DISTRIBUTION WIDTH 16.1 % (11.5-14.5); WHITE BLOOD COUNT 9.8 K/uL (4.8-10.8)
--- NOTE | 2016-12-12 08:13 | RAD ---
PROCEDURE: CHEST RADIOGRAPH, 1 VIEW HISTORY: SOB COMPARISON: Comparison is made to 09/12/2016 FINDINGS: LUNGS: Re- demonstration of diffuse reticular and reticulonodular opacities in the lungs no O prominent at the mid and lower portion and more prominent on the left. PLEURA: No pneumothorax or pleural fluid seen. CARDIOVASCULAR: Normal. OSSEOUS STRUCTURES: No significant abnormalities. VISUALIZED UPPER ABDOMEN: Normal. OTHER FINDINGS: None. IMPRESSION: Re- demonstration of diffuse reticular opacities more prominent at the lower portion of the lungs suggestive of lung fibrosis.
[2016-12-12 08:21] LABS: CHLORIDE 108 mmol/L (98-107); SODIUM 144 mmol/L (132-148)
[2016-12-12 08:22] LABS: POTASSIUM 3.3 mmol/L (3.6-5.2)
[2016-12-12 08:24] LABS: ALKALINE PHOSPHATASE 72 U/L (38-126); ALT/SGPT 27 U/L (9-52); AST/SGOT 22 U/L (14-36); BILIRUBIN,TOTAL 0.5 mg/dL (0.2-1.3); BLOOD UREA NITROGEN 9 mg/dL (7-17); CARBON DIOXIDE 29 mmol/L (22-30); GFR AFRICAN-AMERICAN > 60; GLUCOSE,RANDOM 88 mg/dL (65-105); PHOSPHOROUS 4.2 mg/dL (2.5-4.5); TOTAL PROTEIN 6.5 g/dL (6.3-8.3)
[2016-12-12 08:25] LABS: CALCIUM 8.3 mg/dl (8.6-10.4); MAGNESIUM 1.6 mg/dL (1.6-2.3)
[2016-12-12 08:30] VITALS: RESP 20
[2016-12-12] MEDS: Budesonide 0.5 mg/2 ml Inhal Susp UD INH SCH ×2 (08:34→20:18)
[2016-12-12] MEDS: MethylPREDNISolone 40 mg Vial IV SCH ×2 (15:14→22:25)
--- NOTE | 2016-12-12 15:23 | CT ---
PROCEDURE: CT Chest without contrast HISTORY: hx of pulm fibrosis COMPARISON: Comparison is made to 09/13/2016 TECHNIQUE: Contiguous axial images were obtained through the chest without intravenous contrast enhancement. Sagittal and coronal reconstructions were performed. Radiation dose (DLP): 422.93 mGy-cm. This CT exam was performed using one or more of the following dose reduction techniques: Automated exposure control, adjustment of the mA and/or kV according to patient size, and/or use of iterative reconstruction technique. FINDINGS: LUNGS: Interval mild worsening of lung fibrosis mainly seen at the lower lobes since the previous exam. Re- demonstration of diffuse honeycomb changes and bronchiectasis at the lower lobes. No evidence of new consolidation or mass in the lungs. MEDIASTINUM: Unremarkable thoracic aorta. No aneurysm. The heart is mildly to moderately enlarged. The main pulmonary artery is mildly to moderately enlarged. Iistoc-dh-[id number] enlarged lymph nodes seen at the right para trachea and to a less degree at the left AP window. PLEURA: No pleural fluid. No pneumothorax. BONES: No fracture. No destructive lesion. UPPER ABDOMEN: Grossly unremarkable. OTHER FINDINGS: None. IMPRESSION: Interval slight worsening of lung fibrosis since the previous exam. Otherwise no evidence of significant interval change in the lungs. Cardiomegaly. Dgyevx-[id number] enlarged main pulmonary arteries.
--- NOTE | 2016-12-12 16:14 | CP.PCM.PN ---
<Jeff Robison - Last Filed: 12/12/16 16:15> Subjective - Date & Time of Evaluation Date of Evaluation: 12/12/16 Time of Evaluation: 16:15 - Subjective Subjective: Progress note. Dr. Erich Loja: Attending Pt seen and examined at bedside. No acute distress. Pt using nebulizer, will give stat dose of solumedro. No fevers, chills, vomiting, diarrhea, some sob. CT scan of chest ordered. Objective - Vital Signs/Intake and Output Vital Signs (last 24 hours): Temp Pulse Resp BP Pulse Ox 98.1 F 79 20 117/74 97 12/12/16 08:28 12/12/16 08:28 12/12/16 08:28 12/12/16 08:28 12/12/16 08:28 Intake and Output: 12/12/16 12/12/16 06:59 18:59 Intake Total 500 650 Balance 500 650 - Medications Medications: Current Medications Albuterol Sulfate (Albuterol 0.042% Inhal Abena (1.25mg/3ml) Ud) 1.25 mg INH RQ3 PRN PRN Reason: Wheezing Albuterol/Ipratropium (Duoneb 3 Mg/0.5 Mg (3 Ml) Ud) 3 ml INH RQ6 KARLIE Last Admin: 12/12/16 13:44 Dose: 3 ml Budesonide (Pulmicort Respules) 0.5 mg INH RQ12 KARLIE Last Admin: 12/12/16 08:34 Dose: 0.5 mg Heparin Sodium (Porcine) (Heparin) 5,000 units SC Q8 [facility] Last Admin: 12/12/16 13:39 Dose: 5,000 units Ceftriaxone Sodium 1 gm/ (Sodium Chloride) 100 mls @ 100 mls/hr IVPB Q12H KARLIE Last Admin: 12/12/16 10:30 Dose: 100 mls/hr Doxycycline Hyclate 100 mg/ (Sodium Chloride) 100 mls @ 100 mls/hr IVPB Q12H [facility] Last Admin: 12/12/16 11:24 Dose: 100 mls/hr Methylprednisolone (Solu-Medrol) 40 mg IV Q8 [facility] Last Admin: 12/12/16 15:14 Dose: Not Given Pantoprazole Sodium (Protonix Inj) 40 mg IVP Q12H [facility] Last Admin: 12/12/16 11:23 Dose: 40 mg Pneumococcal Polyvalent Vaccine (Pneumovax 23 Vaccine) 0.5 ml IM .ONCE ONE Stop: 12/14/16 10:01 - Labs Labs: 12/12/16 07:51 12/12/16 07:51 Assessment and Plan - Assessment and Plan (Free Text) Assessment: Assessment: 1) Shortness of breath likely secondary to worsening of pulmonary fibrosis consult with Dr. Mathur. recs appreciated. Cough with productive sputum- F/U sputum culture CXR unchanged since previous ct chest without contrast pending Duonebs Q6 KARLIE 1.25mg Albuterol Q3H PRN 3L NC prednisone changed to IV solumedrol Ceftriaxone started 12/11 Doxycycline started 12/11 Pulmicort .5mg Q12H F/U Morning labs hold home ofev for now troponin negative x 1 will record pre and post peak flow 2) Prophylactic SCDs Heparin SC Protonix discussed with Dr. Loja <Erich Loja H - Last Filed: 12/14/16 07:17> Objective - Vital Signs/Intake and Output Vital Signs (last 24 hours): Temp Pulse Resp BP Pulse Ox 98.2 F 94 H 20 147/80 97 12/14/16 00:00 12/14/16 00:00 12/14/16 00:00 12/14/16 00:00 12/14/16 00:00 Intake and Output: 12/14/16 12/14/16 06:59 18:59 Intake Total 300 Balance 300 - Medications Medications: Current Medications Albuterol Sulfate (Albuterol 0.042% Inhal Abena (1.25mg/3ml) Ud) 1.25 mg INH RQ3 PRN PRN Reason: Wheezing Albuterol/Ipratropium (Duoneb 3 Mg/0.5 Mg (3 Ml) Ud) 3 ml INH RQ4 KARLIE Last Admin: 12/14/16 03:56 Dose: Not Given Budesonide (Pulmicort Respules) 0.5 mg INH RQ12 KARLIE Last Admin: 12/13/16 19:42 Dose: 0.5 mg Famotidine (Pepcid) 20 mg PO DAILY KARLIE Last Admin: 12/13/16 11:52 Dose: 20 mg Guaifenesin/Dextromethorphan (Robitussin Dm) 5 ml PO Q4H PRN PRN Reason: Cough Last Admin: 12/14/16 02:28 Dose: 5 ml Heparin Sodium (Porcine) (Heparin) 5,000 units SC Q8 [facility] Last Admin: 12/14/16 05:24 Dose: 5,000 units Ceftriaxone Sodium 1 gm/ (Sodium Chloride) 100 mls @ 100 mls/hr IVPB Q12H [facility] Last Admin: 12/13/16 22:39 Dose: 100 mls/hr Azithromycin 500 mg/ Sodium (Chloride) 250 mls @ 250 mls/hr IVPB Q24H [facility] Last Admin: 12/13/16 12:46 Dose: 250 mls/hr Methylprednisolone (Solu-Medrol) 40 mg IV Q8 [facility] Last Admin: 12/14/16 05:24 Dose: 40 mg Pneumococcal Polyvalent Vaccine (Pneumovax 23 Vaccine) 0.5 ml IM .ONCE ONE Stop: 12/14/16 10:01 Fluticasone/Salmeterol (Advair Diskus 250/50) 1 puff INH RQ12 [facility] Last Admin: 12/13/16 19:43 Dose: 1 puff - Labs Labs: 12/13/16 08:36 12/13/16 08:36 Attending/Attestation - Attestation I have personally seen and examined this patient.: Yes I have fully participated in the care of the patient.: Yes I have reviewed all pertinent clinical information, including history, physical exam and plan: Yes
--- NOTE | 2016-12-12 18:12 | CP.PCM.CON ---
History of Present Illness - History of Present Illness History of Present Illness: reason for consultation: shortness of breath 71-year-old female with history of IPF, asthma who presented to emergency room with 3 day history of worsening shortness of breath. Shortness of breath also associated with cough which is productive of clear phlegm. Also complaining of chills. Patient was recently started on OFEV for pulmonary fibrosis. PMH - pulmonary fibrosis, asthma PSH - possible bronchoscopy; otherwise no surgery Home meds - atrovent, albuterol pump, 3L of oxygen at home, Nintedonib 150mg, Advair Allergies - denies however the record indicates iodine; will confirm Family History - denies Social Hx - denies ever smoking, or usng drugs; admits to s Review of Systems - Review of Systems All systems: reviewed and no additional remarkable complaints except (shortness of breath and cough) Past Patient History - Past Medical History & Family History Past Medical History?: Yes - Past Social History Smoking Status: Never Smoked - CARDIAC Hx Cardiac Disorders: No - PULMONARY Hx Respiratory Disorders: Yes Hx Asthma: Yes Hx Bronchitis: Yes Hx Pneumonia: Yes - NEUROLOGICAL Hx Neurological Disorder: No - HEENT Hx HEENT Problems: No - RENAL Hx Chronic Kidney Disease: No - ENDOCRINE/METABOLIC Hx Endocrine Disorders: No - HEMATOLOGICAL/ONCOLOGICAL Hx Blood Disorders: No Hx Blood Transfusions: No - INTEGUMENTARY Hx Dermatological Problems: No - MUSCULOSKELETAL/RHEUMATOLOGICAL Hx Arthritis: Yes Hx Falls: No Hx Fractures: Yes (dislocation of elbow 2013) - GASTROINTESTINAL Hx Gastrointestinal Disorders: No - GENITOURINARY/GYNECOLOGICAL Hx Genitourinary Disorders: No - PSYCHIATRIC Hx Anxiety: No Hx Substance Use: No - SURGICAL HISTORY Hx Surgeries: Yes Other/Comment: 'LUNG SX'/BIOPSY? 2016 - ANESTHESIA Hx Anesthesia: No Hx Anesthesia Reactions: No Hx Malignant Hyperthermia: No Meds Allergies/Adverse Reactions: Allergies Allergy/AdvReac Type Severity Reaction Status Date / Time iodine Allergy Verified 12/11/16 19:09 - Medications Medications: Current Medications Albuterol Sulfate (Albuterol 0.042% Inhal Abena (1.25mg/3ml) Ud) 1.25 mg INH RQ3 PRN PRN Reason: Wheezing Albuterol/Ipratropium (Duoneb 3 Mg/0.5 Mg (3 Ml) Ud) 3 ml INH RQ6 KARLIE Last Admin: 12/12/16 13:44 Dose: 3 ml Budesonide (Pulmicort Respules) 0.5 mg INH RQ12 [facility] Last Admin: 12/12/16 08:34 Dose: 0.5 mg Heparin Sodium (Porcine) (Heparin) 5,000 units SC Q8 [facility] Last Admin: 12/12/16 13:39 Dose: 5,000 units Ceftriaxone Sodium 1 gm/ (Sodium Chloride) 100 mls @ 100 mls/hr IVPB Q12H [facility] Last Admin: 12/12/16 10:30 Dose: 100 mls/hr Doxycycline Hyclate 100 mg/ (Sodium Chloride) 100 mls @ 100 mls/hr IVPB Q12H [facility] Last Admin: 12/12/16 11:24 Dose: 100 mls/hr Methylprednisolone (Solu-Medrol) 40 mg IV Q8 [facility] Last Admin: 12/12/16 15:14 Dose: Not Given Pantoprazole Sodium (Protonix Inj) 40 mg IVP Q12H [facility] Last Admin: 12/12/16 11:23 Dose: 40 mg Pneumococcal Polyvalent Vaccine (Pneumovax 23 Vaccine) 0.5 ml IM .ONCE ONE Stop: 12/14/16 10:01 Physical Exam - Head Exam Head Exam: ATRAUMATIC, NORMOCEPHALIC - Eye Exam Eye Exam: Normal appearance - ENT Exam ENT Exam: Mucous Membranes Moist - Neck Exam Neck exam: Positive for: Normal Inspection - Respiratory Exam Respiratory Exam: Rales - Cardiovascular Exam Cardiovascular Exam: REGULAR RHYTHM - GI/Abdominal Exam GI & Abdominal Exam: Normal Bowel Sounds, Soft - Extremities Exam Extremities exam: Positive for: pedal edema Results - Vital Signs Recent Vital Signs: Last Vital Signs Temp 98.1 F 12/12/16 15:15 Pulse 87 12/12/16 15:15 Resp 20 12/12/16 15:15 BP 131/81 12/12/16 15:15 Pulse Ox 97 12/12/16 15:15 - Labs Result Diagrams: 12/12/16 07:51 12/12/16 07:51 Labs: Laboratory Results - last 24 hr 12/12/16 12/12/16 12/12/16 07:06 07:51 07:51 WBC 9.8 RBC 4.47 Hgb 13.2 Hct 39.8 MCV 89.2 MCH 29.6 MCHC 33.2 RDW 16.1 H Plt Count 230 MPV 9.1 Neut % (Auto) 55.1 Lymph % (Auto) 23.8 [place] % (Auto) 10.6 H Eos % (Auto) 8.6 H Baso % (Auto) 1.9 Neut # 5.4 Lymph # 2.3 [place] # 1.0 H Eos # 0.8 H Baso # 0.2 Sodium 144 Potassium 3.3 L Chloride 108 H Carbon Dioxide 29 Anion Gap 12 BUN 9 Creatinine 0.6 L Est GFR ( Amer) > 60 Est GFR (Non-Af Amer) > 60 POC Glucose (mg/dL) 93 Random Glucose 88 Calcium 8.3 L Phosphorus 4.2 Magnesium 1.6 Total Bilirubin 0.5 AST 22 ALT 27 Alkaline Phosphatase 72 Troponin I Total Protein 6.5 Albumin 3.3 L Globulin 3.2 Albumin/Globulin Ratio 1.0 Influenza Typ A,B (EIA) 12/12/16 12/12/16 13:51 17:00 WBC RBC Hgb Hct MCV MCH MCHC RDW Plt Count MPV Neut % (Auto) Lymph % (Auto) [place] % (Auto) Eos % (Auto) Baso % (Auto) Neut # Lymph # [place] # Eos # Baso # Sodium Potassium Chloride Carbon Dioxide Anion Gap BUN Creatinine Est GFR ( Amer) Est GFR (Non-Af Amer) POC Glucose (mg/dL) Random Glucose Calcium Phosphorus Magnesium Total Bilirubin AST ALT Alkaline Phosphatase Troponin I < 0.0120 Total Protein Albumin Globulin Albumin/Globulin Ratio Influenza Typ A,B (EIA) Negative for flu a/b Assessment & Plan (1) Pulmonary fibrosis Status: Chronic Comment: complaining of shortness of breath and cough. Underlying pneumonia cannot be ruled out. continue nebulizer treatment, IV steroids and antibiotics. Refusing to use OFEV ffor pulmonary fibrosis (2) Dyspnea Status: Acute (3) Asthma Status: Chronic
--- NOTE | 2016-12-13 00:23 | CP.PCM.PN ---
Subjective - Date & Time of Evaluation Date of Evaluation: 12/13/16 Time of Evaluation: 00:00 - Subjective Subjective: Medicine Progress Note: Patient was seen and examined at bedside. Patient states she is coughing and is going to have her breathing treatment soon to help with her cough. Patient denies chest pain, nausea or vomiting. Patient states she is ambulating. Objective - Vital Signs/Intake and Output Vital Signs (last 24 hours): Temp Pulse Resp BP Pulse Ox 98.5 F 74 20 122/72 96 12/12/16 23:24 12/12/16 23:24 12/12/16 23:24 12/12/16 23:24 12/12/16 23:24 Intake and Output: 12/12/16 12/13/16 18:59 06:59 Intake Total 650 450 Balance 650 450 - Medications Medications: Current Medications Albuterol Sulfate (Albuterol 0.042% Inhal Abena (1.25mg/3ml) Ud) 1.25 mg INH RQ3 PRN PRN Reason: Wheezing Albuterol/Ipratropium (Duoneb 3 Mg/0.5 Mg (3 Ml) Ud) 3 ml INH RQ6 [facility] Last Admin: 12/12/16 20:18 Dose: 3 ml Budesonide (Pulmicort Respules) 0.5 mg INH RQ12 [facility] Last Admin: 12/12/16 20:18 Dose: 0.5 mg Heparin Sodium (Porcine) (Heparin) 5,000 units SC Q8 [facility] Last Admin: 12/12/16 22:26 Dose: 5,000 units Ceftriaxone Sodium 1 gm/ (Sodium Chloride) 100 mls @ 100 mls/hr IVPB Q12H [facility] Last Admin: 12/12/16 22:26 Dose: 100 mls/hr Doxycycline Hyclate 100 mg/ (Sodium Chloride) 100 mls @ 100 mls/hr IVPB Q12H [facility] Last Admin: 12/13/16 00:00 Dose: 100 mls/hr Methylprednisolone (Solu-Medrol) 40 mg IV Q8 [facility] Last Admin: 12/12/16 22:25 Dose: 40 mg Pantoprazole Sodium (Protonix Inj) 40 mg IVP Q12H [facility] Last Admin: 12/12/16 22:25 Dose: 40 mg Pneumococcal Polyvalent Vaccine (Pneumovax 23 Vaccine) 0.5 ml IM .ONCE ONE Stop: 12/14/16 10:01 - Labs Labs: 12/12/16 07:51 12/12/16 07:51 - Constitutional Appears: Chronically Ill - Head Exam Head Exam: ATRAUMATIC, NORMAL INSPECTION, NORMOCEPHALIC - Eye Exam Eye Exam: EOMI, Normal appearance, PERRL Pupil Exam: NORMAL ACCOMODATION - ENT Exam ENT Exam: Mucous Membranes Moist - Respiratory Exam Respiratory Exam: Rales, NORMAL BREATHING PATTERN. absent: Clear to Ausculation Bilateral - Cardiovascular Exam Cardiovascular Exam: REGULAR RHYTHM, RRR, +S1, +S2 - GI/Abdominal Exam GI & Abdominal Exam: Soft, Normal Bowel Sounds. absent: Tenderness - Extremities Exam Extremities Exam: Normal Inspection - Neurological Exam Neurological Exam: Alert, Awake, Oriented x3 - Psychiatric Exam Psychiatric exam: Anxious - Skin Skin Exam: Normal Color, Warm Assessment and Plan - Assessment and Plan (Free Text) Assessment: 1) Shortness of breath likely secondary to worsening of pulmonary fibrosis Pulmonology Consult: Dr. Mathur --> help appreciated. - Cough with productive sputum- F/U sputum culture - blood culture - no growth - preliminary - CXR unchanged since previous - CT chest without contrast: Interval slight worsening of lung fibrosis since previous exam. Otherwise no evidence of significant interval change in the lungs. Cardiomegaly. Mildly to moderately enlarged main pulmonary arteries. * Duonebs Q6 [facility] * 1.25mg Albuterol Q3H PRN * 3L NC * IV solumedrol started 12/12 * Ceftriaxone started 12/11 * Doxycycline started 12/11 * Pulmicort .5mg Q12H hold home ofev for now troponin negative x 1 will record pre and post peak flow 2) Prophylactic SCDs Heparin SC Protonix
[2016-12-13] MEDS: Albuterol-Ipratrop 3 mg / 0.5 (3 ml) UD INH SCH ×5 (01:51→19:42)
[2016-12-13] MEDS: MethylPREDNISolone 40 mg Vial IV SCH ×3 (05:14→21:31)
[2016-12-13] MEDS: Budesonide 0.5 mg/2 ml Inhal Susp UD INH SCH ×2 (07:52→19:42)
[2016-12-13 08:50] LABS: BASO % 0.3 % (0.0-2.0); HEMATOCRIT 43.6 % (34.0-47.0); LYMPH % 17.5 % (20.0-40.0); MEAN CELL VOLUME 88.3 fL (81.0-99.0); MEAN CORPUSCULAR HEMOGLOBIN 29.5 pg (27.0-31.0); MEAN CORPUSCULAR HGB CONC 33.4 g/dL (33.0-37.0); MEAN PLATELET VOLUME 9.4 fL (7.2-11.7); MONO # 0.3 K/uL (0.0-0.8); MONO % 2.8 % (0.0-10.0); WHITE BLOOD COUNT 11.4 K/uL (4.8-10.8)
[2016-12-13 09:07] LABS: CHLORIDE 105 mmol/L (98-107); SODIUM 141 mmol/L (132-148)
[2016-12-13 09:08] LABS: POTASSIUM 3.7 mmol/L (3.6-5.2)
[2016-12-13 09:09] LABS: GFR AFRICAN-AMERICAN > 60
[2016-12-13 09:10] LABS: ALB/GLOB RATIO 1.1 (1.0-2.1); ALKALINE PHOSPHATASE 87 U/L (38-126); ALT/SGPT 25 U/L (9-52); AST/SGOT 23 U/L (14-36); BILIRUBIN,TOTAL 0.5 mg/dL (0.2-1.3); BLOOD UREA NITROGEN 12 mg/dL (7-17); CARBON DIOXIDE 26 mmol/L (22-30); GLUCOSE,RANDOM 148 mg/dL (65-105); PHOSPHOROUS 3.3 mg/dL (2.5-4.5); TOTAL PROTEIN 7.5 g/dL (6.3-8.3)
[2016-12-13 09:11] LABS: CALCIUM 9.3 mg/dl (8.6-10.4); MAGNESIUM 1.8 mg/dL (1.6-2.3)
[2016-12-13] MEDS: Azithromycin 500 MG in Sodium Chloride 0.9% 250 ML IVPB SCH (12:46)
[2016-12-13] MEDS: guaiFENesin DM 100 mg-10 mg/5 ml UD PO PRN ×3 (12:50→21:30)
[2016-12-13] MEDS: Fluticasone-Salmeterol 250-50mcg Diskus INH SCH (19:43)
[2016-12-14] MEDS: Albuterol-Ipratrop 3 mg / 0.5 (3 ml) UD INH SCH ×8 (00:51→23:50)
[2016-12-14] MEDS: guaiFENesin DM 100 mg-10 mg/5 ml UD PO PRN ×4 (02:28→21:35)
[2016-12-14] MEDS: MethylPREDNISolone 40 mg Vial IV SCH ×3 (05:24→21:03)
--- NOTE | 2016-12-14 07:38 | CP.PCM.PN ---
<Esther Sanders - Last Filed: 12/14/16 18:22> Subjective - Date & Time of Evaluation Date of Evaluation: 12/14/16 Time of Evaluation: 07:00 - Subjective Subjective: Medicine Progress Note: Patient was seen and examined at bedside in the AM. Patient states she is still coughing and her phlegm has changed from yellow to white. Patient states she is still having shortness of breath. Patient states she is eating well and denies nausea or vomiting. Objective - Vital Signs/Intake and Output Vital Signs (last 24 hours): Temp Pulse Resp BP Pulse Ox 98.2 F 94 H 20 147/80 97 12/14/16 00:00 12/14/16 00:00 12/14/16 00:00 12/14/16 00:00 12/14/16 00:00 Intake and Output: 12/14/16 12/14/16 06:59 18:59 Intake Total 300 Balance 300 - Medications Medications: Current Medications Albuterol Sulfate (Albuterol 0.042% Inhal Abena (1.25mg/3ml) Ud) 1.25 mg INH RQ3 PRN PRN Reason: Wheezing Albuterol/Ipratropium (Duoneb 3 Mg/0.5 Mg (3 Ml) Ud) 3 ml INH RQ4 [facility] Last Admin: 12/14/16 03:56 Dose: Not Given Budesonide (Pulmicort Respules) 0.5 mg INH RQ12 [facility] Last Admin: 12/13/16 19:42 Dose: 0.5 mg Famotidine (Pepcid) 20 mg PO DAILY [facility] Last Admin: 12/13/16 11:52 Dose: 20 mg Guaifenesin/Dextromethorphan (Robitussin Dm) 5 ml PO Q4H PRN PRN Reason: Cough Last Admin: 12/14/16 02:28 Dose: 5 ml Heparin Sodium (Porcine) (Heparin) 5,000 units SC Q8 [facility] Last Admin: 12/14/16 05:24 Dose: 5,000 units Ceftriaxone Sodium 1 gm/ (Sodium Chloride) 100 mls @ 100 mls/hr IVPB Q12H [facility] Last Admin: 12/13/16 22:39 Dose: 100 mls/hr Azithromycin 500 mg/ Sodium (Chloride) 250 mls @ 250 mls/hr IVPB Q24H [facility] Last Admin: 12/13/16 12:46 Dose: 250 mls/hr Methylprednisolone (Solu-Medrol) 40 mg IV Q8 [facility] Last Admin: 12/14/16 05:24 Dose: 40 mg Pneumococcal Polyvalent Vaccine (Pneumovax 23 Vaccine) 0.5 ml IM .ONCE ONE Stop: 12/14/16 10:01 Fluticasone/Salmeterol (Advair Diskus 250/50) 1 puff INH RQ12 [facility] Last Admin: 12/13/16 19:43 Dose: 1 puff - Labs Labs: 12/13/16 08:36 12/13/16 08:36 - Constitutional Appears: Chronically Ill - Head Exam Head Exam: ATRAUMATIC, NORMAL INSPECTION, NORMOCEPHALIC - Eye Exam Eye Exam: EOMI, Normal appearance, PERRL Pupil Exam: NORMAL ACCOMODATION - ENT Exam ENT Exam: Mucous Membranes Moist - Respiratory Exam Respiratory Exam: Rales, Rhonchi. absent: Clear to Ausculation Bilateral - Cardiovascular Exam Cardiovascular Exam: REGULAR RHYTHM, RRR, +S1, +S2 - GI/Abdominal Exam GI & Abdominal Exam: Soft, Normal Bowel Sounds. absent: Tenderness - Extremities Exam Extremities Exam: Normal Inspection. absent: Pedal Edema, Tenderness - Neurological Exam Neurological Exam: Alert, Awake, Oriented x3 - Psychiatric Exam Psychiatric exam: Normal Affect, Normal Mood - Skin Skin Exam: Normal Color, Warm Assessment and Plan - Assessment and Plan (Free Text) Assessment: 1) Shortness of breath secondary to history of pulmonary fibrosis Pulm Consult: Dr. Mathur --> help appreciated - f/u sputum culture: No growth - preliminary - f/u blood culture: No growth - preliminary - Chest Xray: Re-demonstration of diffuse reticular opacities more prominent at the lower portion of the lungs suggestive of lung fibrosis. - CT Chest without contrast: Interval slight worsening of lung fibrosis since previous exam. Otherwise no evidence of significant interval change in the lungs. Cardiomegaly. Mildly to moderately enlarged main pulmonary arteries. * Duonebs Q4 [facility] * 1.25mg Albuterol Q3H PRN * 3L NC * Pulmicort .5mg Q12H * Advair * Robitussin DM * IV solumedrol started 12/12 * Ceftriaxone started 12/11 * Azithromycin started 12/13 * Nintedanib 150mg BID started 12/14 2) Prophylactic * SCDs * Heparin SC * Pepcid 20mg daily Case discussed with Dr. Purvi Sanders PGY-1 <Erich Loja H - Last Filed: 12/14/16 19:10> Objective - Vital Signs/Intake and Output Vital Signs (last 24 hours): Temp Pulse Resp BP Pulse Ox 98.6 F 98 H 20 120/71 97 12/14/16 16:00 12/14/16 16:00 12/14/16 16:00 12/14/16 16:00 12/14/16 16:00 Intake and Output: 12/14/16 12/15/16 18:59 06:59 Intake Total 710 Balance 710 - Medications Medications: Current Medications Albuterol Sulfate (Albuterol 0.042% Inhal Abena (1.25mg/3ml) Ud) 1.25 mg INH RQ3 PRN PRN Reason: Wheezing Albuterol/Ipratropium (Duoneb 3 Mg/0.5 Mg (3 Ml) Ud) 3 ml INH RQ4 [facility] Last Admin: 12/14/16 11:11 Dose: 3 ml Budesonide (Pulmicort Respules) 0.5 mg INH RQ12 [facility] Last Admin: 12/14/16 08:04 Dose: 0.5 mg Famotidine (Pepcid) 20 mg PO DAILY [facility] Last Admin: 12/14/16 10:16 Dose: 20 mg Guaifenesin/Dextromethorphan (Robitussin Dm) 5 ml PO Q4H PRN PRN Reason: Cough Last Admin: 12/14/16 17:36 Dose: 5 ml Heparin Sodium (Porcine) (Heparin) 5,000 units SC Q8 [facility] Last Admin: 12/14/16 13:40 Dose: 5,000 units Home Med (Patient's Own Medication) 1 tab PO BID [facility] Last Admin: 12/14/16 17:40 Dose: Not Given Ceftriaxone Sodium 1 gm/ (Sodium Chloride) 100 mls @ 100 mls/hr IVPB Q12H [facility] Last Admin: 12/14/16 10:49 Dose: 100 mls/hr Azithromycin 500 mg/ Sodium (Chloride) 250 mls @ 250 mls/hr IVPB Q24H [facility] Last Admin: 12/14/16 13:39 Dose: 250 mls/hr Methylprednisolone (Solu-Medrol) 40 mg IV Q8 [facility] Last Admin: 12/14/16 13:40 Dose: 40 mg Fluticasone/Salmeterol (Advair Diskus 250/50) 1 puff INH RQ12 [facility] Last Admin: 12/14/16 08:05 Dose: Not Given - Labs Labs: 12/14/16 09:01 12/14/16 09:01 Attending/Attestation - Attestation I have personally seen and examined this patient.: Yes I have fully participated in the care of the patient.: Yes I have reviewed all pertinent clinical information, including history, physical exam and plan: Yes Notes (Text): 12/14/16 19:08 Medical attending: Patient was seen and examined by me, agrees the above note by manager of medical. The patient explains to us that her breathing was only minimally improved. She denied having any chest pain, she also denied having cough, however she says that it's tight for her to take deep breaths in and out. The CAT scan returned and for the interpretation of the radiologist reported that the pulmonary fibrosis is unfortunately appear to have gotten worse. She was also seen with the copper tapper in the room as well, she has been started on a advance pulmonary fibrosis medication. She had on the table with her. She explains is that she doesn't like taking it since she feels like it makes her drowsy however per the insistence of pulmonology she's can try to take it This medication is not on formulary here at the hospital so it's can have to be her home medications. In the meantime we'll continue to monitor the patient's breathing, hopefully if it improves, then we can decrease the Solu-Medrol to twice a day tomorrow Thank you very much, Erich Loja
[2016-12-14] MEDS: Budesonide 0.5 mg/2 ml Inhal Susp UD INH SCH (08:04)
[2016-12-14] MEDS: Fluticasone-Salmeterol 250-50mcg Diskus INH SCH ×2 (08:05→20:46)
[2016-12-14 09:16] LABS: BASO % 0.1 % (0.0-2.0); LYMPH # 1.3 K/uL (1.0-4.3); LYMPH % 9.7 % (20.0-40.0); MEAN CELL VOLUME 88.9 fL (81.0-99.0); MEAN CORPUSCULAR HEMOGLOBIN 29.6 pg (27.0-31.0); MEAN CORPUSCULAR HGB CONC 33.3 g/dL (33.0-37.0); MEAN PLATELET VOLUME 9.5 fL (7.2-11.7); MONO # 0.6 K/uL (0.0-0.8); MONO % 4.4 % (0.0-10.0); PLATELET COUNT 271 K/uL (130-400); RED CELL DISTRIBUTION WIDTH 15.9 % (11.5-14.5); WHITE BLOOD COUNT 13.7 K/uL (4.8-10.8)
[2016-12-14 09:49] LABS: ALB/GLOB RATIO 1.1 (1.0-2.1); ALKALINE PHOSPHATASE 74 U/L (38-126); ALT/SGPT 20 U/L (9-52); AST/SGOT 21 U/L (14-36); BILIRUBIN,TOTAL 0.4 mg/dL (0.2-1.3); BLOOD UREA NITROGEN 16 mg/dL (7-17); CALCIUM 9.3 mg/dl (8.6-10.4); CARBON DIOXIDE 28 mmol/L (22-30); CHLORIDE 101 mmol/L (98-107); GFR AFRICAN-AMERICAN > 60; GLUCOSE,RANDOM 206 mg/dL (65-105); PHOSPHOROUS 3.3 mg/dL (2.5-4.5); POTASSIUM 3.7 mmol/L (3.6-5.2); SODIUM 143 mmol/L (132-148); TOTAL PROTEIN 7.1 g/dL (6.3-8.3)
[2016-12-14 09:58] LABS: NEUTROPHIL 86 % (50-75); TOTAL CELLS COUNTED 100
[2016-12-14 09:59] LABS: GIANT PLATELETS PRESENT
[2016-12-14] MEDS ORDERED: Pantoprazole 40 mg EC Tab PO SCH (10:00)
[2016-12-14] MEDS ORDERED: Pneumococcal 23-Valent Vaccine IM ONE (10:00)
[2016-12-14] MEDS: Azithromycin 500 MG in Sodium Chloride 0.9% 250 ML IVPB SCH (13:39)
--- NOTE | 2016-12-14 14:55 | CP.PCM.PN ---
Subjective - Date & Time of Evaluation Date of Evaluation: 12/14/16 Time of Evaluation: 10:00 - Subjective Subjective: patient seen and examined Complaining of dyspnea on minimal Afebrile The chest pain Dry cough Patient agreed to use OFEV, patient states that she feels very weak after taking medicine Objective - Vital Signs/Intake and Output Vital Signs (last 24 hours): Temp Pulse Resp BP Pulse Ox 98.1 F 101 H 20 134/85 90 L 12/14/16 08:19 12/14/16 08:19 12/14/16 08:19 12/14/16 08:19 12/14/16 08:19 Intake and Output: 12/14/16 12/14/16 06:59 18:59 Intake Total 300 Balance 300 - Medications Medications: Current Medications Albuterol Sulfate (Albuterol 0.042% Inhal Abena (1.25mg/3ml) Ud) 1.25 mg INH RQ3 PRN PRN Reason: Wheezing Albuterol/Ipratropium (Duoneb 3 Mg/0.5 Mg (3 Ml) Ud) 3 ml INH RQ4 [facility] Last Admin: 12/14/16 11:11 Dose: 3 ml Budesonide (Pulmicort Respules) 0.5 mg INH RQ12 [facility] Last Admin: 12/14/16 08:04 Dose: 0.5 mg Famotidine (Pepcid) 20 mg PO DAILY [facility] Last Admin: 12/14/16 10:16 Dose: 20 mg Guaifenesin/Dextromethorphan (Robitussin Dm) 5 ml PO Q4H PRN PRN Reason: Cough Last Admin: 12/14/16 10:16 Dose: 5 ml Heparin Sodium (Porcine) (Heparin) 5,000 units SC Q8 [facility] Last Admin: 12/14/16 13:40 Dose: 5,000 units Ceftriaxone Sodium 1 gm/ (Sodium Chloride) 100 mls @ 100 mls/hr IVPB Q12H [facility] Last Admin: 12/14/16 10:49 Dose: 100 mls/hr Azithromycin 500 mg/ Sodium (Chloride) 250 mls @ 250 mls/hr IVPB Q24H [facility] Last Admin: 12/14/16 13:39 Dose: 250 mls/hr Methylprednisolone (Solu-Medrol) 40 mg IV Q8 [facility] Last Admin: 12/14/16 13:40 Dose: 40 mg Fluticasone/Salmeterol (Advair Diskus 250/50) 1 puff INH RQ12 [facility] Last Admin: 12/14/16 08:05 Dose: Not Given - Labs Labs: 12/14/16 09:01 12/14/16 09:01 Assessment and Plan (1) Pulmonary fibrosis Status: Chronic (2) Dyspnea Status: Acute (3) Asthma Status: Chronic
[2016-12-14] MEDS: NINTEDANIB PO SCH (17:40)
[2016-12-15] MEDS: Albuterol-Ipratrop 3 mg / 0.5 (3 ml) UD INH SCH ×6 (03:34→23:45)
[2016-12-15] MEDS: MethylPREDNISolone 40 mg Vial IV SCH ×2 (06:15→21:30)
[2016-12-15] MEDS: guaiFENesin DM 100 mg-10 mg/5 ml UD PO PRN ×2 (06:16→10:32)
[2016-12-15] MEDS: Budesonide 0.5 mg/2 ml Inhal Susp UD INH SCH ×2 (07:18→19:36)
[2016-12-15] MEDS: Fluticasone-Salmeterol 250-50mcg Diskus INH SCH (07:19)
[2016-12-15 09:00] LABS: BASO % 0.1 % (0.0-2.0); LYMPH # 1.3 K/uL (1.0-4.3); LYMPH % 11.2 % (20.0-40.0); MEAN CELL VOLUME 89.7 fL (81.0-99.0); MEAN CORPUSCULAR HEMOGLOBIN 29.1 pg (27.0-31.0); MEAN CORPUSCULAR HGB CONC 32.4 g/dL (33.0-37.0); MEAN PLATELET VOLUME 9.2 fL (7.2-11.7); MONO # 0.7 K/uL (0.0-0.8); MONO % 6.4 % (0.0-10.0); RED CELL DISTRIBUTION WIDTH 16.2 % (11.5-14.5); WHITE BLOOD COUNT 11.4 K/uL (4.8-10.8)
[2016-12-15 09:11] LABS: CHLORIDE 103 mmol/L (98-107); POTASSIUM 3.7 mmol/L (3.6-5.2); SODIUM 140 mmol/L (132-148)
[2016-12-15 09:12] LABS: ALB/GLOB RATIO 1.1 (1.0-2.1); ALKALINE PHOSPHATASE 71 U/L (38-126); AST/SGOT 26 U/L (14-36); BILIRUBIN,TOTAL 0.4 mg/dL (0.2-1.3); BLOOD UREA NITROGEN 18 mg/dL (7-17); CARBON DIOXIDE 27 mmol/L (22-30); GFR AFRICAN-AMERICAN > 60; TOTAL PROTEIN 6.4 g/dL (6.3-8.3)
[2016-12-15 09:13] LABS: ALT/SGPT 42 U/L (9-52); CALCIUM 8.4 mg/dl (8.6-10.4); GLUCOSE,RANDOM 212 mg/dL (65-105); MAGNESIUM 2.1 mg/dL (1.6-2.3); PHOSPHOROUS 2.8 mg/dL (2.5-4.5)
--- NOTE | 2016-12-15 09:34 | CP.PCM.PN ---
<Esther Sanders - Last Filed: 12/15/16 14:40> Subjective - Date & Time of Evaluation Date of Evaluation: 12/15/16 Time of Evaluation: 07:30 - Subjective Subjective: Medicine Progress Note: Patient was seen and examined at bedside in the AM. She states she still continues to have shortness of breath but it is much less than when she was first admitted. She states she does not want to continue taking her home medication the Nintanumab because it leaves her feeling very tired, she gets a rash, and she feels like gets stuck in her throat. Objective - Vital Signs/Intake and Output Vital Signs (last 24 hours): Temp Pulse Resp BP Pulse Ox 98.1 F 75 20 136/83 97 12/14/16 23:39 12/14/16 23:39 12/14/16 23:39 12/14/16 23:39 12/14/16 23:39 Intake and Output: 12/15/16 12/15/16 06:59 18:59 Intake Total 180 Balance 180 - Medications Medications: Current Medications Albuterol Sulfate (Albuterol 0.042% Inhal Abena (1.25mg/3ml) Ud) 1.25 mg INH RQ3 PRN PRN Reason: Wheezing Albuterol/Ipratropium (Duoneb 3 Mg/0.5 Mg (3 Ml) Ud) 3 ml INH RQ4 [facility] Last Admin: 12/15/16 07:18 Dose: 3 ml Budesonide (Pulmicort Respules) 0.5 mg INH RQ12 [facility] Last Admin: 12/15/16 07:18 Dose: 0.5 mg Famotidine (Pepcid) 20 mg PO DAILY [facility] Last Admin: 12/14/16 10:16 Dose: 20 mg Guaifenesin/Dextromethorphan (Robitussin Dm) 5 ml PO Q4H PRN PRN Reason: Cough Last Admin: 12/15/16 06:16 Dose: 5 ml Heparin Sodium (Porcine) (Heparin) 5,000 units SC Q8 [facility] Last Admin: 12/15/16 06:16 Dose: 5,000 units Home Med (Patient's Own Medication) 1 tab PO BID [facility] Last Admin: 12/14/16 17:40 Dose: Not Given Ceftriaxone Sodium 1 gm/ (Sodium Chloride) 100 mls @ 100 mls/hr IVPB Q12H [facility] Last Admin: 12/14/16 22:22 Dose: 100 mls/hr Azithromycin 500 mg/ Sodium (Chloride) 250 mls @ 250 mls/hr IVPB Q24H [facility] Last Admin: 12/14/16 13:39 Dose: 250 mls/hr Methylprednisolone (Solu-Medrol) 40 mg IV Q8 [facility] Last Admin: 12/15/16 06:15 Dose: 40 mg - Labs Labs: 12/15/16 08:52 12/15/16 08:52 - Constitutional Appears: Chronically Ill - Head Exam Head Exam: ATRAUMATIC, NORMAL INSPECTION, NORMOCEPHALIC - Eye Exam Eye Exam: EOMI, Normal appearance, PERRL Pupil Exam: NORMAL ACCOMODATION - ENT Exam ENT Exam: Mucous Membranes Moist - Respiratory Exam Respiratory Exam: Rales, Rhonchi, NORMAL BREATHING PATTERN - Cardiovascular Exam Cardiovascular Exam: REGULAR RHYTHM, RRR, +S1, +S2 - GI/Abdominal Exam GI & Abdominal Exam: Soft, Normal Bowel Sounds. absent: Tenderness - Extremities Exam Extremities Exam: Normal Inspection. absent: Pedal Edema, Tenderness - Neurological Exam Neurological Exam: Alert, Awake, Oriented x3 - Psychiatric Exam Psychiatric exam: Normal Affect, Normal Mood - Skin Skin Exam: Normal Color, Warm Assessment and Plan - Assessment and Plan (Free Text) Assessment: 1) Shortness of breath secondary to history of pulmonary fibrosis Pulm Consult: Dr. Mathur --> help appreciated - f/u sputum culture: No growth - preliminary - f/u blood culture: No growth - preliminary - Chest Xray: Re-demonstration of diffuse reticular opacities more prominent at the lower portion of the lungs suggestive of lung fibrosis. - CT Chest without contrast: Interval slight worsening of lung fibrosis since previous exam. Otherwise no evidence of significant interval change in the lungs. Cardiomegaly. Mildly to moderately enlarged main pulmonary arteries. * Duonebs Q4 [facility] * 1.25mg Albuterol Q3H PRN * 3L NC * Pulmicort .5mg Q12H * Robitussin DM * IV solumedrol changed to BID 12/15 * Ceftriaxone started 12/11 * Azithromycin started 12/13 * Nintedanib 150mg BID started 12/14 - Patient refused to continue take the medication Patient was able to walk with minimal shortness of breath but after walking around the hallway she did start coughing 2) Prophylactic * SCDs * Heparin SC * Pepcid 20mg daily Disposition; Possible discharge Case discussed with Dr. Purvi Sanders PGY-1 <Erich Loja H - Last Filed: 12/15/16 14:57> Objective - Vital Signs/Intake and Output Vital Signs (last 24 hours): Temp Pulse Resp BP Pulse Ox 98.1 F 75 20 136/83 97 12/14/16 23:39 12/14/16 23:39 12/14/16 23:39 12/14/16 23:39 12/14/16 23:39 Intake and Output: 12/15/16 12/15/16 06:59 18:59 Intake Total 180 590 Balance 180 590 - Medications Medications: Current Medications Albuterol Sulfate (Albuterol 0.042% Inhal Abena (1.25mg/3ml) Ud) 1.25 mg INH RQ3 PRN PRN Reason: Wheezing Albuterol/Ipratropium (Duoneb 3 Mg/0.5 Mg (3 Ml) Ud) 3 ml INH RQ4 [facility] Last Admin: 12/15/16 11:26 Dose: 3 ml Budesonide (Pulmicort Respules) 0.5 mg INH RQ12 [facility] Last Admin: 12/15/16 07:18 Dose: 0.5 mg Famotidine (Pepcid) 20 mg PO DAILY [facility] Last Admin: 12/15/16 10:20 Dose: 20 mg Guaifenesin/Dextromethorphan (Robitussin Dm) 5 ml PO Q4H PRN PRN Reason: Cough Last Admin: 12/15/16 10:32 Dose: 5 ml Heparin Sodium (Porcine) (Heparin) 5,000 units SC Q8 [facility] Last Admin: 12/15/16 13:11 Dose: 5,000 units Ceftriaxone Sodium 1 gm/ (Sodium Chloride) 100 mls @ 100 mls/hr IVPB Q12H [facility] Last Admin: 12/15/16 10:45 Dose: 100 mls/hr Azithromycin 500 mg/ Sodium (Chloride) 250 mls @ 250 mls/hr IVPB Q24H [facility] Last Admin: 12/15/16 13:07 Dose: 250 mls/hr Methylprednisolone (Solu-Medrol) 40 mg IV Q12 [facility] - Labs Labs: 12/15/16 08:52 09/19/17 08:52 Attending/Attestation - Attestation I have personally seen and examined this patient.: Yes I have fully participated in the care of the patient.: Yes I have reviewed all pertinent clinical information, including history, physical exam and plan: Yes Notes (Text): Medical attending: Patient was seen and examined by me, agrees the above note by medical staff physician. The patient was seen and examined, her wheezing and rhonchorous breath sounds were still present on exam. She was not under any acute distress when we saw her. She is speaking in full sentences. Furthermore we have her to have her stand up and walk with us during her physical exam. She is able to walk around the entire hallway around the nurse's station and then back to her room. She denied having shortness of breath, denied having chest pain, denied having palpitations when she did this. She did not require any assistance. At this time were to decrease the IV Solu-Medrol to just twice a day. Also of note is the patient refused her home medication for the pulmonary fibrosis, Nintanumab. Thank you very much, Erich Loja
[2016-12-15] MEDS: NINTEDANIB PO SCH (10:20)
[2016-12-15] MEDS: Azithromycin 500 MG in Sodium Chloride 0.9% 250 ML IVPB SCH (13:07)
--- NOTE | 2016-12-15 17:44 | CP.PCM.PN ---
Subjective - Date & Time of Evaluation Date of Evaluation: 12/15/16 Time of Evaluation: 10:00 - Subjective Subjective: Patient seen and examined. Less shortness of breath and cough Does not want to use OFEV Afebrile with no chest pain Objective - Vital Signs/Intake and Output Vital Signs (last 24 hours): Temp Pulse Resp BP Pulse Ox 98.3 F 100 H 20 133/89 95 12/15/16 16:00 12/15/16 16:00 12/15/16 16:00 12/15/16 16:00 12/15/16 16:00 Intake and Output: 12/15/16 12/15/16 06:59 18:59 Intake Total 180 590 Balance 180 590 - Medications Medications: Current Medications Albuterol Sulfate (Albuterol 0.042% Inhal Abena (1.25mg/3ml) Ud) 1.25 mg INH RQ3 PRN PRN Reason: Wheezing Albuterol/Ipratropium (Duoneb 3 Mg/0.5 Mg (3 Ml) Ud) 3 ml INH RQ4 [facility] Last Admin: 12/15/16 15:55 Dose: 3 ml Budesonide (Pulmicort Respules) 0.5 mg INH RQ12 [facility] Last Admin: 12/15/16 07:18 Dose: 0.5 mg Famotidine (Pepcid) 20 mg PO DAILY [facility] Last Admin: 12/15/16 10:20 Dose: 20 mg Guaifenesin/Dextromethorphan (Robitussin Dm) 5 ml PO Q4H PRN PRN Reason: Cough Last Admin: 12/15/16 10:32 Dose: 5 ml Heparin Sodium (Porcine) (Heparin) 5,000 units SC Q8 [facility] Last Admin: 12/15/16 13:11 Dose: 5,000 units Ceftriaxone Sodium 1 gm/ (Sodium Chloride) 100 mls @ 100 mls/hr IVPB Q12H [facility] Last Admin: 12/15/16 10:45 Dose: 100 mls/hr Azithromycin 500 mg/ Sodium (Chloride) 250 mls @ 250 mls/hr IVPB Q24H [facility] Last Admin: 12/15/16 13:07 Dose: 250 mls/hr Methylprednisolone (Solu-Medrol) 40 mg IV Q12 [facility] - Labs Labs: 12/15/16 08:52 12/15/16 08:52 - Constitutional Appears: No Acute Distress - Head Exam Head Exam: ATRAUMATIC, NORMOCEPHALIC - Eye Exam Eye Exam: Normal appearance - ENT Exam ENT Exam: Mucous Membranes Moist - Neck Exam Neck Exam: Full ROM (.0), Normal Inspection - Respiratory Exam Respiratory Exam: Rales - Cardiovascular Exam Cardiovascular Exam: REGULAR RHYTHM - GI/Abdominal Exam GI & Abdominal Exam: Soft, Normal Bowel Sounds - Extremities Exam Extremities Exam: Full ROM Assessment and Plan (1) Pulmonary fibrosis Assessment & Plan: Taper IV steroids Continue nebulizer treatment Status: Chronic (2) Dyspnea Status: Acute (3) Asthma Status: Chronic
--- NOTE | 2016-12-15 22:53 | CARD ---
APPROVED REPORT EKG Measurement Heart [id number] [place] [id number] <Conclusion> Normal sinus rhythm Right bundle branch block T wave abnormality, consider lateral ischemia Abnormal ECG
[2016-12-16 02:01] VITALS: PULSE 71; O2SAT 98
[2016-12-16] MEDS: Albuterol-Ipratrop 3 mg / 0.5 (3 ml) UD INH SCH ×3 (03:23→11:17)
[2016-12-16] MEDS: Budesonide 0.5 mg/2 ml Inhal Susp UD INH SCH (07:10)
--- NOTE | 2016-12-16 07:47 | CP.PCM.PN ---
Objective - Vital Signs/Intake and Output Vital Signs (last 24 hours): Temp Pulse Resp BP Pulse Ox 97.6 F 71 20 109/61 98 12/16/16 01:00 12/16/16 01:00 12/16/16 01:00 12/16/16 01:00 12/16/16 01:00 Intake and Output: 12/16/16 12/16/16 06:59 18:59 Intake Total 400 180 Balance 400 180 - Medications Medications: Current Medications Albuterol Sulfate (Albuterol 0.042% Inhal Abena (1.25mg/3ml) Ud) 1.25 mg INH RQ3 PRN PRN Reason: Wheezing Albuterol/Ipratropium (Duoneb 3 Mg/0.5 Mg (3 Ml) Ud) 3 ml INH RQ4 [facility] Last Admin: 12/16/16 07:10 Dose: 3 ml Budesonide (Pulmicort Respules) 0.5 mg INH RQ12 [facility] Last Admin: 12/16/16 07:10 Dose: 0.5 mg Famotidine (Pepcid) 20 mg PO DAILY [facility] Last Admin: 12/15/16 10:20 Dose: 20 mg Guaifenesin/Dextromethorphan (Robitussin Dm) 5 ml PO Q4H PRN PRN Reason: Cough Last Admin: 12/15/16 10:32 Dose: 5 ml Heparin Sodium (Porcine) (Heparin) 5,000 units SC Q8 [facility] Last Admin: 12/16/16 05:37 Dose: 5,000 units Ceftriaxone Sodium 1 gm/ (Sodium Chloride) 100 mls @ 100 mls/hr IVPB Q12H [facility] Last Admin: 12/15/16 23:03 Dose: 100 mls/hr Azithromycin 500 mg/ Sodium (Chloride) 250 mls @ 250 mls/hr IVPB Q24H [facility] Last Admin: 12/15/16 13:07 Dose: 250 mls/hr Methylprednisolone (Solu-Medrol) 40 mg IV Q12 [facility] Last Admin: 12/15/16 21:30 Dose: 40 mg - Labs Labs: 12/15/16 08:52 12/15/16 08:52
[2016-12-16 08:27] VITALS: BP 154/86; TEMP 97.8
[2016-12-16] MEDS: guaiFENesin DM 100 mg-10 mg/5 ml UD PO PRN (10:18)
[2016-12-16] MEDS: MethylPREDNISolone 40 mg Vial IV SCH (10:19)
[2016-12-16 11:53] LABS: BASO % 0.2 % (0.0-2.0); HEMATOCRIT 41.5 % (34.0-47.0); LYMPH # 1.8 K/uL (1.0-4.3); LYMPH % 15.2 % (20.0-40.0); MEAN CELL VOLUME 88.5 fL (81.0-99.0); MEAN CORPUSCULAR HGB CONC 32.7 g/dL (33.0-37.0); MEAN PLATELET VOLUME 9.6 fL (7.2-11.7); MONO # 1.4 K/uL (0.0-0.8); MONO % 12.2 % (0.0-10.0); NRBC % 0.1 % (0.0-2.0); RED CELL DISTRIBUTION WIDTH 15.5 % (11.5-14.5); WHITE BLOOD COUNT 11.6 K/uL (4.8-10.8)
[2016-12-16 12:23] LABS: CHLORIDE 102 mmol/L (98-107); SODIUM 139 mmol/L (132-148)
[2016-12-16 12:24] LABS: POTASSIUM 3.6 mmol/L (3.6-5.2)
[2016-12-16 12:25] LABS: GFR AFRICAN-AMERICAN > 60
[2016-12-16 12:26] LABS: ALB/GLOB RATIO 1.1 (1.0-2.1); ALKALINE PHOSPHATASE 65 U/L (38-126); ALT/SGPT 48 U/L (9-52); AST/SGOT 25 U/L (14-36); BILIRUBIN,TOTAL 0.4 mg/dL (0.2-1.3); BLOOD UREA NITROGEN 18 mg/dL (7-17); CARBON DIOXIDE 28 mmol/L (22-30); GLUCOSE,RANDOM 169 mg/dL (65-105); PHOSPHOROUS 3.1 mg/dL (2.5-4.5); TOTAL PROTEIN 6.3 g/dL (6.3-8.3)
--- NOTE | 2016-12-16 12:26 | CP.PCM.DIS ---
<Esther Sanders - Last Filed: 12/16/16 17:52> Provider - Provider Date of Admission: 12/11/16 21:44 Attending physician: Erich Loja DO Time Spent in preparation of Discharge (in minutes): 40 Hospital Course - Lab Results Lab Results: Micro Results 12/11/16 21:00 Blood Blood Culture - Preliminary NO GROWTH AFTER 4 DAYS 12/11/16 20:15 Blood Blood Culture - Preliminary NO GROWTH AFTER 4 DAYS 12/12/16 Unknown Sputum Gram Stain - Final 12/12/16 Unknown Sputum Sputum Culture - Final Yeast Species Most Recent Lab Values WBC 11.6 K/uL (4.8-10.8) H 12/16/16 11:47 RBC 4.69 Mil/uL (3.80-5.20) 12/16/16 11:47 Hgb 13.6 g/dL (11.0-16.0) 12/16/16 11:47 Hct 41.5 % (34.0-47.0) 12/16/16 11:47 MCV 88.5 fL (81.0-99.0) 12/16/16 11:47 MCH 29.0 pg (27.0-31.0) 12/16/16 11:47 MCHC 32.7 g/dL (33.0-37.0) L 12/16/16 11:47 RDW 15.5 % (11.5-14.5) H 12/16/16 11:47 Plt Count 251 K/uL (130-400) 12/16/16 11:47 MPV 9.6 fL (7.2-11.7) 12/16/16 11:47 Neut % (Auto) 72.4 % (50.0-75.0) 12/16/16 11:47 Lymph % (Auto) 15.2 % (20.0-40.0) L 12/16/16 11:47 Bell % (Auto) 12.2 % (0.0-10.0) H 12/16/16 11:47 Eos % (Auto) 0.0 % (0.0-4.0) 12/16/16 11:47 Baso % (Auto) 0.2 % (0.0-2.0) 12/16/16 11:47 Neut # 8.4 K/uL (1.8-7.0) H 12/16/16 11:47 Lymph # 1.8 K/uL (1.0-4.3) 12/16/16 11:47 Bell # 1.4 K/uL (0.0-0.8) H 12/16/16 11:47 Eos # 0.0 K/uL (0.0-0.7) 12/16/16 11:47 Baso # 0.0 K/uL (0.0-0.2) 12/16/16 11:47 Neutrophils % (Manual) 86 % (50-75) H 12/14/16 09:01 Lymphocytes % (Manual) 11 % (20-40) L 12/14/16 09:01 Reactive Lymphs % 6 % (0-0) H 12/11/16 20:28 Monocytes % (Manual) 3 % (0-10) 12/14/16 09:01 Eosinophils % (Manual) 9 % (0-4) H 12/11/16 20:28 Basophils % (Manual) 2 % (0-2) 12/11/16 20:28 Platelet Estimate Normal (NORMAL) 12/14/16 09:01 Giant Platelets Present 12/14/16 09:01 pO2 65 mm/Hg (30-55) H 12/11/16 20:35 VBG pH 7.39 (7.32-7.43) 12/11/16 20:35 VBG pCO2 48 mmHg (40-60) 12/11/16 20:35 VBG HCO3 27.4 mmol/L 12/11/16 20:35 VBG Total CO2 30.6 mmol/L (22-28) H 12/11/16 20:35 VBG O2 Sat (Calc) 95.6 % (40-65) H 12/11/16 20:35 VBG Base Excess 3.3 mmol/L (0.0-2.0) H 12/11/16 20:35 VBG Potassium 3.5 mmol/L (3.6-5.2) L 12/11/16 20:35 Sodium 144.0 mmol/l (132-148) 12/11/16 20:35 Chloride 110.0 mmol/L (98-107) H 12/11/16 20:35 Glucose 123 mg/dl (65-105) H 12/11/16 20:35 Lactate 1.0 mmol/L (0.7-2.1) 12/11/16 20:35 Sodium 140 mmol/L (132-148) 12/15/16 08:52 Potassium 3.7 mmol/L (3.6-5.2) 12/15/16 08:52 Chloride 103 mmol/L (98-107) 12/15/16 08:52 Carbon Dioxide 27 mmol/L (22-30) 12/15/16 08:52 Anion Gap 13 (10-20) 12/15/16 08:52 BUN 18 mg/dL (7-17) H 12/15/16 08:52 Creatinine 0.7 MG/DL (0.7-1.2) 12/15/16 08:52 Est GFR ( Amer) > 60 12/15/16 08:52 Est GFR (Non-Af Amer) > 60 12/15/16 08:52 POC Glucose (mg/dL) 93 mg/dL (65-110) 12/12/16 07:06 Random Glucose 212 mg/dL (65-105) H 12/15/16 08:52 Calcium 8.4 mg/dl (8.6-10.4) L 12/15/16 08:52 Phosphorus 2.8 mg/dL (2.5-4.5) 12/15/16 08:52 Magnesium 2.1 mg/dL (1.6-2.3) 12/15/16 08:52 Total Bilirubin 0.4 mg/dL (0.2-1.3) 12/15/16 08:52 AST 26 U/L (14-36) 12/15/16 08:52 ALT 42 U/L (9-52) 12/15/16 08:52 Alkaline Phosphatase 71 U/L (38-126) 12/15/16 08:52 Troponin I < 0.0120 ng/mL (0.00-0.120) 12/12/16 13:51 NT-Pro-B Natriuret Pep 154 pg/mL (0-900) 12/11/16 20:28 Total Protein 6.4 g/dL (6.3-8.3) 12/15/16 08:52 Albumin 3.4 g/dL (3.5-5.0) L 12/15/16 08:52 Globulin 3.1 gm/dL (2.2-3.9) 12/15/16 08:52 Albumin/Globulin Ratio 1.1 (1.0-2.1) 12/15/16 08:52 Prolactin 23.5 ng/mL (3.0-18.9) H 12/14/16 09:01 Venous Blood Potassium 3.5 mmol/L (3.6-5.2) L 12/11/16 20:35 Urine Color Yellow (YELLOW) 12/11/16 20:52 Urine Clarity Hazy (Clear) 12/11/16 20:52 Urine pH 5.0 (5.0-8.0) 12/11/16 20:52 Ur Specific [place] 1.029 (1.003-1.030) 12/11/16 20:52 Urine Protein Negative mg/dL (NEGATIVE) 12/11/16 20:52 Urine Glucose (UA) Normal mg/dL (Normal) 12/11/16 20:52 Urine Ketones Negative mg/dL (NEGATIVE) 12/11/16 20:52 Urine Blood Negative (NEGATIVE) 12/11/16 20:52 Urine Nitrate Negative (NEGATIVE) 12/11/16 20:52 Urine Bilirubin Negative (NEGATIVE) 12/11/16 20:52 Urine Urobilinogen Normal mg/dL (0.2-1.0) 12/11/16 20:52 Ur Leukocyte Esterase Neg Lisa/uL (Negative) 12/11/16 20:52 Urine WBC (Auto) 3 /hpf (0-5) 12/11/16 20:52 Urine RBC (Auto) 3 /hpf (0-3) 12/11/16 20:52 Ur Squamous Epith Cells 2 /hpf (0-5) 12/11/16 20:52 Urine Bacteria Rare (<OCC) 12/11/16 20:52 Influenza Typ A,B (EIA) Negative for flu a/b (NEGATIVE) 12/12/16 17:00 - Hospital Course Hospital Course: CC: "shortness of breath" HPI:71 year old female with past medical history significant for asthma and pulmonary fibrosis presents with complaints of shortness of breath for three days duration. Patient states that the symptoms became unbearable prompting her to come to the emergency room. She also states she has cough with a yellow- white phlegm. She states that she has had a history of pulmonary fibrosis for many years requiring treatment. She admits to being febrile though she did not check with a thermometer. She admits to headaches, shortness of breath, cough, sweating, and chills. She states she uses her nebulizer 4x per day, albuterol about 4x per day and her Adviar about 4x per day. She denies chest pain, palpitations, numbness, tingling, nausea, vomiting, diarrhea or constipation at this time. PMD - Dr. Marcel Maya PMH - pulmonary fibrosis, asthma PSH - possible bronchoscopy; otherwise no surgery Home meds - atrovent, albuterol pump, 3L of oxygen at home, Nintedonib 150mg, Advair Allergies - denies however the record indicates iodine; will confirm Family History - denies Social Hx - denies ever smoking, or usng drugs; admits to social alcohol use. 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 Patient started on Duonebs Q6; Albuterol; 40mg Prednisone; Ceftriaxone; Doxycycline; Pulmicort. 12/12: Prednisone was change to Solumedrol IV. CT chest without contrast: Interval slight worsening of lung fibrosis since previous exam. Otherwise no evidence of significant interval change in the lungs. Cardiomegaly. Mildly to moderately enlarged main pulmonary arteries. Pulmonology was consulted Dr. Mathur. 12/13: Patient switched from doxycycline to azithromycin 500 mg on 12/13. Robitussin DM 5ml po q4h prn added 12/15: patient refused to restart home medication Nintedanib 150mg BID due to side effects such as fatigue. Patient was able to walk with minimal shortness of breath but after walking around the hallway she did start coughing. 12/16: Spoke with Dr. Mathur patient okay for discharge and to follow up as an outpatient. Patient was able to walk up and down the hallway with minimal shortness of breath. Patient is stable for discharge per Dr. Loja. Patient to continue home medications. Patient to start new medications: Prednisone 20mg twice daily for 2 days Prednisone 20mg once daily for 2 days Fluconazole 200mg once daily for 1 day Fluconazole 100mg once daily for 4 days Patient to follow up with Dr. Mathur in one week. Patient to follow up with primary physician in 1-2 weeks. Patient to return to emergency room if symptoms return or worsen. This is a brief summary of events. For a complete course, refer to the medical record. Discharge Exam - Head Exam Head Exam: ATRAUMATIC, NORMAL INSPECTION, NORMOCEPHALIC - Eye Exam Eye Exam: EOMI, Normal appearance, PERRL Pupil Exam: NORMAL ACCOMODATION - ENT Exam ENT Exam: Mucous Membranes Moist - Respiratory Exam Respiratory Exam: Rales, Rhonchi, NORMAL BREATHING PATTERN - Cardiovascular Exam Cardiovascular Exam: REGULAR RHYTHM, RRR, +S1, +S2 - GI/Abdominal Exam GI & Abdominal Exam: Normal Bowel Sounds, Soft. absent: Tenderness - Extremities Exam Extremities exam: normal inspection - Neurological Exam Neurological exam: Alert, Oriented x3 - Psychiatric Exam Psychiatric exam: Normal Affect, Normal Mood - Skin Skin Exam: Normal Color, Warm Discharge Plan - Follow Up Plan Condition: FAIR Disposition: HOME/ ROUTINE Instructions: Prednisone (By mouth), Fluconazole (By mouth), Pulmonary Fibrosis (DC), Dyspnea (GEN) Referrals: Allen Mathur MD [Staff Provider] - Girma Maya MD [IM] - <Erich Loja - Last Filed: 12/17/16 07:40> Provider - Provider Date of Admission: 12/11/16 21:44 Attending physician: Erich Loja DO Hospital Course - Lab Results Lab Results: Micro Results 12/11/16 21:00 Blood Blood Culture - Final NO GROWTH AFTER 5 DAYS 12/11/16 21:00 Blood Gram Stain - Final TEST NOT PERFORMED 12/11/16 20:15 Blood Blood Culture - Final NO GROWTH AFTER 5 DAYS 12/11/16 20:15 Blood Gram Stain - Final TEST NOT PERFORMED 12/12/16 Unknown Sputum Gram Stain - Final 12/12/16 Unknown Sputum Sputum Culture - Final Yeast Species Most Recent Lab Values WBC 11.6 K/uL (4.8-10.8) H 12/16/16 11:47 RBC 4.69 Mil/uL (3.80-5.20) 12/16/16 11:47 Hgb 13.6 g/dL (11.0-16.0) 12/16/16 11:47 Hct 41.5 % (34.0-47.0) 12/16/16 11:47 MCV 88.5 fL (81.0-99.0) 12/16/16 11:47 MCH 29.0 pg (27.0-31.0) 12/16/16 11:47 MCHC 32.7 g/dL (33.0-37.0) L 12/16/16 11:47 RDW 15.5 % (11.5-14.5) H 12/16/16 11:47 Plt Count 251 K/uL (130-400) 12/16/16 11:47 MPV 9.6 fL (7.2-11.7) 12/16/16 11:47 Neut % (Auto) 72.4 % (50.0-75.0) 12/16/16 11:47 Lymph % (Auto) 15.2 % (20.0-40.0) L 12/16/16 11:47 Bell % (Auto) 12.2 % (0.0-10.0) H 12/16/16 11:47 Eos % (Auto) 0.0 % (0.0-4.0) 12/16/16 11:47 Baso % (Auto) 0.2 % (0.0-2.0) 12/16/16 11:47 Neut # 8.4 K/uL (1.8-7.0) H 12/16/16 11:47 Lymph # 1.8 K/uL (1.0-4.3) 12/16/16 11:47 Bell # 1.4 K/uL (0.0-0.8) H 12/16/16 11:47 Eos # 0.0 K/uL (0.0-0.7) 12/16/16 11:47 Baso # 0.0 K/uL (0.0-0.2) 12/16/16 11:47 Neutrophils % (Manual) 86 % (50-75) H 12/14/16 09:01 Lymphocytes % (Manual) 11 % (20-40) L 12/14/16 09:01 Reactive Lymphs % 6 % (0-0) H 12/11/16 20:28 Monocytes % (Manual) 3 % (0-10) 12/14/16 09:01 Eosinophils % (Manual) 9 % (0-4) H 12/11/16 20:28 Basophils % (Manual) 2 % (0-2) 12/11/16 20:28 Platelet Estimate Normal (NORMAL) 12/14/16 09:01 Giant Platelets Present 12/14/16 09:01 pO2 65 mm/Hg (30-55) H 12/11/16 20:35 VBG pH 7.39 (7.32-7.43) 12/11/16 20:35 VBG pCO2 48 mmHg (40-60) 12/11/16 20:35 VBG HCO3 27.4 mmol/L 12/11/16 20:35 VBG Total CO2 30.6 mmol/L (22-28) H 12/11/16 20:35 VBG O2 Sat (Calc) 95.6 % (40-65) H 12/11/16 20:35 VBG Base Excess 3.3 mmol/L (0.0-2.0) H 12/11/16 20:35 VBG Potassium 3.5 mmol/L (3.6-5.2) L 12/11/16 20:35 Sodium 144.0 mmol/l (132-148) 12/11/16 20:35 Chloride 110.0 mmol/L (98-107) H 12/11/16 20:35 Glucose 123 mg/dl (65-105) H 12/11/16 20:35 Lactate 1.0 mmol/L (0.7-2.1) 12/11/16 20:35 Sodium 139 mmol/L (132-148) 12/16/16 11:47 Potassium 3.6 mmol/L (3.6-5.2) 12/16/16 11:47 Chloride 102 mmol/L (98-107) 12/16/16 11:47 Carbon Dioxide 28 mmol/L (22-30) 12/16/16 11:47 Anion Gap 13 (10-20) 12/16/16 11:47 BUN 18 mg/dL (7-17) H 12/16/16 11:47 Creatinine 0.6 MG/DL (0.7-1.2) L 12/16/16 11:47 Est GFR ( Amer) > 60 12/16/16 11:47 Est GFR (Non-Af Amer) > 60 12/16/16 11:47 POC Glucose (mg/dL) 93 mg/dL (65-110) 12/12/16 07:06 Random Glucose 169 mg/dL (65-105) H 12/16/16 11:47 Calcium 8.2 mg/dl (8.6-10.4) L 12/16/16 11:47 Phosphorus 3.1 mg/dL (2.5-4.5) 12/16/16 11:47 Magnesium 2.1 mg/dL (1.6-2.3) 12/16/16 11:47 Total Bilirubin 0.4 mg/dL (0.2-1.3) 12/16/16 11:47 AST 25 U/L (14-36) 12/16/16 11:47 ALT 48 U/L (9-52) 12/16/16 11:47 Alkaline Phosphatase 65 U/L (38-126) 12/16/16 11:47 Troponin I < 0.0120 ng/mL (0.00-0.120) 12/12/16 13:51 NT-Pro-B Natriuret Pep 154 pg/mL (0-900) 12/11/16 20:28 Total Protein 6.3 g/dL (6.3-8.3) 12/16/16 11:47 Albumin 3.3 g/dL (3.5-5.0) L 12/16/16 11:47 Globulin 3.0 gm/dL (2.2-3.9) 12/16/16 11:47 Albumin/Globulin Ratio 1.1 (1.0-2.1) 12/16/16 11:47 Prolactin 23.5 ng/mL (3.0-18.9) H 12/14/16 09:01 Venous Blood Potassium 3.5 mmol/L (3.6-5.2) L 12/11/16 20:35 Urine Color Yellow (YELLOW) 12/11/16 20:52 Urine Clarity Hazy (Clear) 12/11/16 20:52 Urine pH 5.0 (5.0-8.0) 12/11/16 20:52 Ur Specific [place] 1.029 (1.003-1.030) 12/11/16 20:52 Urine Protein Negative mg/dL (NEGATIVE) 12/11/16 20:52 Urine Glucose (UA) Normal mg/dL (Normal) 12/11/16 20:52 Urine Ketones Negative mg/dL (NEGATIVE) 12/11/16 20:52 Urine Blood Negative (NEGATIVE) 12/11/16 20:52 Urine Nitrate Negative (NEGATIVE) 12/11/16 20:52 Urine Bilirubin Negative (NEGATIVE) 12/11/16 20:52 Urine Urobilinogen Normal mg/dL (0.2-1.0) 12/11/16 20:52 Ur Leukocyte Esterase Neg Lisa/uL (Negative) 12/11/16 20:52 Urine WBC (Auto) 3 /hpf (0-5) 12/11/16 20:52 Urine RBC (Auto) 3 /hpf (0-3) 12/11/16 20:52 Ur Squamous Epith Cells 2 /hpf (0-5) 12/11/16 20:52 Urine Bacteria Rare (<OCC) 12/11/16 20:52 Influenza Typ A,B (EIA) Negative for flu a/b (NEGATIVE) 12/12/16 17:00 Attending/Attestation - Attestation I have personally seen and examined this patient.: Yes I have fully participated in the care of the patient.: Yes I have reviewed all pertinent clinical information, including history, physical exam and plan: Yes Notes (Text): 12/17/16 07:37 Medical Attending: Patient was seen and examined by me. Agree with the above note by the resident. The patient was breathing better. Also on exam we had her walk around in the hallway with us. She was able to do so without assistance and did not report becomming palpitations and denied chest pain, and denied dizzyness As documented before the patient does not want to take her pulmonary fibrosis medication OFEV. The patient will need to continue other medication as well as take a tapering prednisone dose. thank you Erich Loja
[2016-12-16 12:27] LABS: CALCIUM 8.2 mg/dl (8.6-10.4); MAGNESIUM 2.1 mg/dL (1.6-2.3)
[2016-12-16] MEDS: Azithromycin 500 MG in Sodium Chloride 0.9% 250 ML IVPB SCH (13:20)
== END 2016-12-16 15:45 | disposition home or self-care (01) | DRG 195 ==
LOC: C.ER 18:43 → C.3T 21:44
PROVIDERS: ADMIT Hospitalist; ATTEND Hospitalist
DX: J18.9 Pneumonia, unspecified organism (principal); J84.10 Pulmonary fibrosis, unspecified; I51.7 Cardiomegaly; R09.02 Hypoxemia; J45.909 Unspecified asthma, uncomplicated; Z99.81 Dependence on supplemental oxygen

== ENCOUNTER 2017-08-28 16:39 | Inpatient (IN) | payer OTHER ==
[2017-08-28 16:40] VITALS: BMI 71.2
[2017-08-28] MEDS ORDERED: Sodium Chloride 0.9% 1,000 ML IV ONE (17:01)
[2017-08-28] MEDS ORDERED: MethylPREDNISolone 40 mg Vial IVP STA (17:02)
[2017-08-28] MEDS ORDERED: Albuterol-Ipratrop 3 mg / 0.5 (3 ml) UD INH STA (17:02)
[2017-08-28 17:30] LABS: BASO % 0.2 % (0.0-2.0); EOS # 0.5 K/uL (0.0-0.7); EOS % 4.6 % (0.0-4.0); LYMPH # 2.5 K/uL (1.0-4.3); LYMPH % 21.5 % (20.0-40.0); MEAN CELL VOLUME 89.8 fL (81.0-99.0); MEAN CORPUSCULAR HEMOGLOBIN 30.7 pg (27.0-31.0); MEAN CORPUSCULAR HGB CONC 34.2 g/dL (33.0-37.0); MEAN PLATELET VOLUME 8.5 fL (7.2-11.7); MONO # 1.1 K/uL (0.0-0.8); MONO % 9.7 % (0.0-10.0); NEUT # 7.5 K/uL (1.8-7.0); RBC 4.56 Mil/uL (3.80-5.20); WHITE BLOOD COUNT 11.7 K/uL (4.8-10.8)
[2017-08-28] MEDS ORDERED: MethylPREDNISolone 40 mg Vial ONE (17:41)
[2017-08-28] MEDS ORDERED: Sodium Chloride 0.9% 1,000 ML ONE (17:41)
[2017-08-28 17:42] LABS: ALB/GLOB RATIO 1.1 (1.0-2.1); ALBUMIN 3.6 g/dL (3.5-5.0); ALT/SGPT 24 U/L (9-52); AST/SGOT 33 U/L (14-36); BLOOD UREA NITROGEN 12 mg/dL (7-17); CALCIUM 8.7 mg/dl (8.6-10.4); GFR AFRICAN-AMERICAN > 60; GFR NON-AFRICAN AMERICAN > 60; LIPASE 34 U/L (23-300)
[2017-08-28] MEDS ORDERED: Albuterol-Ipratrop 3 mg / 0.5 (3 ml) UD ONE (17:45)
[2017-08-28 17:54] LABS: B-TYPE NATRIURETIC PEPTIDE 223 pg/mL (0-900)
--- NOTE | 2017-08-28 18:17 | C.PDOC ---
History Of Present Illness 72 year old female with PMHx of pulmonary fibrosis, presents to the ED complaining of diffuse joint pain to her legs, back, and shoulders. Also reports a non-productive cough. Patient denies any fever, chills, SOB, or chest pain. Recently stopped her steroids secondary to not liking the way she feels on the medication. Time Seen by Provider: 08/28/17 16:53 Chief Complaint (Nursing): Back Pain History Per: Patient History/Exam Limitations: no limitations Onset/Duration Of Symptoms: Days Current Symptoms Are (Timing): Still Present Past Medical History Reviewed: Historical Data, Nursing Documentation, Vital Signs Vital Signs: Last Vital Signs Temp 97.9 F 08/30/17 00:00 Pulse 90 08/30/17 00:00 Resp 20 08/30/17 00:00 BP 121/70 08/30/17 06:00 Pulse Ox 97 08/30/17 00:00 - Medical History PMH: Arthritis, Asthma, Bronchitis, Fractures (dislocation of elbow 2013), Pneumonia Denies: Anxiety, Chronic Kidney Disease Other PMH: Pulmonary fibrosis - [facility] Procedures CL REDUC DISLOC-ELBOW (09/23/13) Family History: States: Unknown Family Hx - Social History Hx Tobacco Use: No Hx Alcohol Use: No Hx Substance Use: No - Immunization History Hx Tetanus Toxoid Vaccination: No Hx Influenza Vaccination: Yes Hx Pneumococcal Vaccination: No Review Of Systems Except As Marked, All Systems Reviewed And Found Negative. Constitutional: Positive for: Other (Joint pain) Respiratory: Positive for: Cough Musculoskeletal: Positive for: Other (Body pain) Physical Exam - Physical Exam Appears: Non-toxic, No Acute Distress Skin: Normal Color, Warm, Dry Head: Atraumatic, Normacephalic Eye(s): bilateral: Normal Inspection, PERRL, EOMI Nose: Normal Oral Mucosa: Moist Neck: Normal ROM, Supple Chest: Symmetrical Cardiovascular: Rhythm Regular (but tachy), No Murmur Respiratory: No Rales, No Rhonchi, No Wheezing, Other (coarse bs bilaterally ) Gastrointestinal/Abdominal: Soft, No Tenderness, No Distention Back: No Vertebral Tenderness, Paraspinal Tenderness (to bilateral paralumbar regions) Extremity: Normal ROM, Tenderness (to bilateral shoulders and left knee), Capillary Refill (< 2 sec), No Deformity Pulses: Left Dorsalis Pedis: Normal, Right Dorsalis Pedis: Normal Neurological/Psych: Oriented x3, Normal Speech, Other (no focal deficits) ED Course And Treatment - Laboratory Results Result Diagrams: 08/28/17 17:27 08/30/17 07:12 ECG: Interpreted By Me, Viewed By Me ECG Rhythm: Sinus Rhythm (at 95 bpm, with L axis deviation, LVH, R BBB, and nonspecific T wave changes) O2 Sat by Pulse Oximetry: 95 (NC) Pulse Ox Interpretation: Normal Medical Decision Making Medical Decision Making: Initial Assessment: Arthralgia, Pulmonary fibrosis Initial Plan: --EKG --CMP --CBC --Lipase --Troponin I --Pro-BNP --D dimer --UA --Chest x-ray --Duoneb x1 --Solu-Medrol 80 mg IV --IV fluids Updates/Progress: Labs demonstrate hypokalemia. CXR preliminary reading demonstrates interstitial fibrotic changes Final Assessment: Arthralgia, Hypokalemia, Exacerbation of pulmonary fibrosis Disposition Discussed With Dr.: Kevin Llanes Doctor Will See Patient In The: Hospital Counseled Patient/Family Regarding: Studies Performed, Diagnosis - Disposition Disposition: HOSPITALIZED Disposition Time: 18:25 Condition: FAIR - Clinical Impression Clinical Impression: Joint pain, Hypokalemia, Pulmonary fibrosis, unspecified - Scribe Statement The provider has reviewed the documentation as recorded by the Scribe (Haydee Ceballos) Provider Attestation: All medical record entries made by the Scribe were at my direction and personally dictated by me. I have reviewed the chart and agree that the record accurately reflects my personal performance of the history, physical exam, medical decision making, and the department course for this patient. I have also personally directed, reviewed, and agree with the discharge instructions and disposition.
[2017-08-28] MEDS ORDERED: Azithromycin 500 MG in Sodium Chloride 0.9% 250 ML IVPB STA (18:19)
[2017-08-28] MEDS ORDERED: Potassium Chloride 20 mEq 100 ML ONE (18:34)
[2017-08-28 20:08] LABS: SQUAMOUS EPITHIAL 10 /hpf (0-5); URINE BACTERIA MANY (<OCC); URINE BILIRUBIN NEGATIVE (NEGATIVE); URINE BLOOD NEGATIVE (NEGATIVE); URINE CLARITY Hazy (Clear); URINE COLOR Amber (YELLOW); URINE GLUCOSE (UA) NORMAL (Normal); URINE LEUKOCYTE ESTERASE 1+ Leu/uL (Negative); URINE PROTEIN NEGATIVE (NEGATIVE)
[2017-08-28] MEDS: Potassium Ch 20mEq in D5-1/2NS 1,000 ML IV SCH (21:15)
[2017-08-28] MEDS: guaiFENesin 600 mg ER Tab PO SCH (21:30)
[2017-08-28] MEDS: Lactobacillus Acidophilus 500 MU Cap PO SCH (22:26)
[2017-08-29] MEDS: Albuterol-Ipratrop 3 mg / 0.5 (3 ml) UD INH SCH ×4 (02:01→20:35)
[2017-08-29] MEDS: Budesonide 0.5 mg/2 ml Inhal Susp UD INH SCH ×2 (07:45→20:35)
[2017-08-29 08:11] VITALS: RESP 20
--- NOTE | 2017-08-29 08:14 | RAD ---
Chest x-ray two views History: Chest pain. Comparison: 12/11/1016 Findings Persistent ill-defined reticular opacities throughout both lungs with superimposed increased interstitial airspace opacities. This may represent superimposed acute infiltrate and or edema on chronic changes. More patchy increased markings in the lung bases. Bilateral hilar prominence. Tortuous ectatic aorta. Cardiomegaly. Degenerative changes spine and shoulders. Impression: Persistent ill-defined reticular opacities throughout both lungs with superimposed increased interstitial airspace opacities. This may represent superimposed acute infiltrate and or edema on chronic changes. More patchy increased markings in the lung bases. Bilateral hilar prominence. Tortuous ectatic aorta. Cardiomegaly.
[2017-08-29 08:23] LABS: BLOOD UREA NITROGEN 10 mg/dL (7-17); CALCIUM 8.2 mg/dl (8.6-10.4); GFR AFRICAN-AMERICAN > 60; GFR NON-AFRICAN AMERICAN > 60
[2017-08-29] MEDS: Potassium Chloride 20 mEq ER Tab PO SCH (09:47)
[2017-08-29] MEDS: Lactobacillus Acidophilus 500 MU Cap PO SCH ×2 (09:47→17:50)
[2017-08-29] MEDS: guaiFENesin 600 mg ER Tab PO SCH ×4 (09:48→17:50)
[2017-08-29] MEDS: Enoxaparin 30 mg Syringe SC SCH (09:48)
[2017-08-29] MEDS: Potassium Ch 20mEq in D5-1/2NS 1,000 ML IV SCH ×2 (09:55→20:45)
[2017-08-30] MEDS: Albuterol-Ipratrop 3 mg / 0.5 (3 ml) UD INH SCH ×4 (01:07→19:16)
--- NOTE | 2017-08-30 05:31 | CP.PCM.HP ---
History of Present Illness - History of Present Illness History of Present Illness: Chief Complaint : Back Pain History Of Present Illness 72 year old female with PMHx of pulmonary fibrosis, presents to the ED complaining of diffuse joint pain to her legs, back, and shoulders. Also reports a non-productive cough. Patient denies any fever, chills, SOB, or chest pain. Recently stopped her steroids secondary to not liking the way she feels on the medication. Past Patient History - Past Medical History & Family History Past Medical History?: Yes - Past Social History Smoking Status: Never Smoked - CARDIAC Hx Cardiac Disorders: No - PULMONARY Hx Asthma: Yes Hx Bronchitis: Yes Hx Pneumonia: Yes - NEUROLOGICAL Hx Neurological Disorder: No - HEENT Hx HEENT Problems: No - RENAL Hx Chronic Kidney Disease: No - ENDOCRINE/METABOLIC Hx Endocrine Disorders: No - HEMATOLOGICAL/ONCOLOGICAL Hx Blood Disorders: No Hx Blood Transfusions: No - INTEGUMENTARY Hx Dermatological Problems: No - MUSCULOSKELETAL/RHEUMATOLOGICAL Hx Falls: No - GASTROINTESTINAL Hx Gastrointestinal Disorders: No - GENITOURINARY/GYNECOLOGICAL Hx Genitourinary Disorders: No - PSYCHIATRIC Hx Anxiety: No Hx Substance Use: No - SURGICAL HISTORY Hx Surgeries: Yes Other/Comment: 'LUNG SX'/BIOPSY? 2016 - ANESTHESIA Hx Anesthesia: No Hx Anesthesia Reactions: No Hx Malignant Hyperthermia: No Meds Allergies/Adverse Reactions: Allergies Allergy/AdvReac Type Severity Reaction Status Date / Time iodine Allergy Verified 08/28/17 16:52 Results - Vital Signs Recent Vital Signs: Last Vital Signs Temp 97.9 F 08/30/17 00:00 Pulse 90 08/30/17 00:00 Resp 20 08/30/17 00:00 BP 100/62 08/30/17 00:00 Pulse Ox 97 08/30/17 00:00 - Labs Result Diagrams: 08/28/17 17:27 08/29/17 07:56 Labs: Laboratory Results - last 24 hr 08/29/17 07:56 Sodium 143 Potassium 3.3 L Chloride 105 Carbon Dioxide 28 Anion Gap 14 BUN 10 Creatinine 0.5 L Est GFR ( Amer) > 60 Est GFR (Non-Af Amer) > 60 Random Glucose 175 H Calcium 8.2 L
[2017-08-30] MEDS: Budesonide 0.5 mg/2 ml Inhal Susp UD INH SCH ×2 (07:36→19:16)
[2017-08-30 07:40] LABS: BLOOD UREA NITROGEN 12 mg/dL (7-17); CALCIUM 8.3 mg/dl (8.6-10.4); GFR AFRICAN-AMERICAN > 60; GFR NON-AFRICAN AMERICAN > 60
[2017-08-30] MEDS: Potassium Ch 20mEq in D5-1/2NS 1,000 ML IV SCH (09:26)
[2017-08-30] MEDS: Potassium Chloride 20 mEq ER Tab PO SCH (09:44)
[2017-08-30] MEDS: Enoxaparin 30 mg Syringe SC SCH (09:49)
[2017-08-30] MEDS: Lactobacillus Acidophilus 500 MU Cap PO SCH ×2 (09:49→17:05)
[2017-08-30] MEDS: guaiFENesin DM 100 mg-10 mg/5 ml UD PO SCH ×4 (09:51→23:28)
--- NOTE | 2017-08-30 16:24 | CP.PCM.CON ---
History of Present Illness - History of Present Illness History of Present Illness: Reason for Consult - COPD History obtained via "In-Demand" Translation Service; Professional Bondsman ID = [id number]. Patient is a 72 year old female with a past medical history of COPD and pulmonary fibrosis, who presented to the ED on 08/28 with complaints of diffuse joint pain along with non-productive cough. Patient states this cough is chronic and has been present for about 5 years. 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 CXR done on showed reticular opacities in both lungs with superimposed interstitial airspace opacities, suggestive of acute infiltrate vs. edema. Patient is currently afebrile, but has leukocytosis likely due to UTI currently being treated. Assessment/Plan Pulmonary Fibrosis (chronic) Lung exam reveals course lung sounds in all lung melton B/L, but saturation stable at 96% on nasal cannula. Continue OFEV 150 mg. Cough (chronic) Cough is chronic and occasionally productive of white sputum. Start Tesslon Perles 100 mg TID. Solu-Medrol Nebulizer treatment Past Patient History - Past Medical History & Family History Past Medical History?: Yes - Past Social History Smoking Status: Never Smoked - CARDIAC Hx Cardiac Disorders: No - PULMONARY Hx Asthma: Yes Hx Bronchitis: Yes Hx Pneumonia: Yes - NEUROLOGICAL Hx Neurological Disorder: No - HEENT Hx HEENT Problems: No - RENAL Hx Chronic Kidney Disease: No - ENDOCRINE/METABOLIC Hx Endocrine Disorders: No - HEMATOLOGICAL/ONCOLOGICAL Hx Blood Disorders: No Hx Blood Transfusions: No - INTEGUMENTARY Hx Dermatological Problems: No - MUSCULOSKELETAL/RHEUMATOLOGICAL Hx Arthritis: Yes Hx Fractures: Yes (dislocation of elbow 2013) - GASTROINTESTINAL Hx Gastrointestinal Disorders: No - GENITOURINARY/GYNECOLOGICAL Hx Genitourinary Disorders: No - PSYCHIATRIC Hx Anxiety: No Hx Substance Use: No - SURGICAL HISTORY Hx Surgeries: Yes Other/Comment: 'LUNG SX'/BIOPSY? 2016 - ANESTHESIA Hx Anesthesia: No Hx Anesthesia Reactions: No Hx Malignant Hyperthermia: No Meds Allergies/Adverse Reactions: Allergies Allergy/AdvReac Type Severity Reaction Status Date / Time iodine Allergy Verified 08/28/17 16:52 - Medications Medications: Current Medications Acetaminophen (Tylenol 325mg Tab) 650 mg PO Q6 PRN PRN Reason: Pain, Mild (1-3) Last Admin: 08/29/17 05:58 Dose: 650 mg Albuterol/Ipratropium (Duoneb 3 Mg/0.5 Mg (3 Ml) Ud) 3 ml INH RQ6 [facility] Last Admin: 08/30/17 13:19 Dose: 3 ml Budesonide (Pulmicort Respules) 0.5 mg INH RQ12 [facility] Last Admin: 08/30/17 07:36 Dose: 0.5 mg Docusate Sodium (Colace) 100 mg PO BID [facility] Last Admin: 08/30/17 09:49 Dose: 100 mg Enoxaparin Sodium (Lovenox) 30 mg SC DAILY [facility] Last Admin: 08/30/17 09:49 Dose: 30 mg Guaifenesin/Dextromethorphan (Robitussin Dm) 15 ml PO Q6 [facility] Last Admin: 08/30/17 11:46 Dose: 15 ml Ceftriaxone Sodium 1 gm/ (Sodium Chloride) 100 mls @ 100 mls/hr IVPB DAILY [facility] PRN Reason: Protocol Last Admin: 08/30/17 09:50 Dose: 100 mls/hr Lactobacillus Acidophilus (Bacid Acidophilus) 1 cap PO BID [facility] Last Admin: 08/30/17 09:49 Dose: 1 cap Methylprednisolone (Solu-Medrol) 40 mg IV Q12 [facility] Morphine Sulfate (Morphine) 2 mg IM Q4 PRN PRN Reason: Pain, moderate (4-7) Last Admin: 08/30/17 13:14 Dose: 2 mg Pneumococcal Polyvalent Vaccine (Pneumovax 23 Vaccine) 0.5 ml IM .ONCE ONE Stop: 08/31/17 10:01 Potassium Chloride (K-Dur 20 Meq Er Tab) 40 meq PO DAILY [facility] Last Admin: 08/30/17 09:44 Dose: 40 meq Results - Vital Signs Recent Vital Signs: Last Vital Signs Temp 98.1 F 08/30/17 15:47 Pulse 94 H 08/30/17 15:47 Resp 20 08/30/17 15:47 BP 146/86 08/30/17 15:47 Pulse Ox 98 08/30/17 15:47 - Labs Result Diagrams: 08/28/17 17:27 08/30/17 07:12 Labs: Laboratory Results - last 24 hr 08/30/17 07:12 Sodium 142 Potassium 3.9 Chloride 107 Carbon Dioxide 29 Anion Gap 10 BUN 12 Creatinine 0.6 L Est GFR ( Amer) > 60 Est GFR (Non-Af Amer) > 60 Random Glucose 171 H Calcium 8.3 L
[2017-08-30] MEDS: MethylPREDNISolone 40 mg Vial IV SCH (21:36)
[2017-08-31] MEDS: Albuterol-Ipratrop 3 mg / 0.5 (3 ml) UD INH SCH ×4 (01:57→19:24)
[2017-08-31] MEDS: guaiFENesin DM 100 mg-10 mg/5 ml UD PO SCH ×4 (05:47→23:31)
[2017-08-31] MEDS: Budesonide 0.5 mg/2 ml Inhal Susp UD INH SCH ×2 (07:16→19:24)
[2017-08-31] MEDS ORDERED: Pneumococcal 23-Valent Vaccine IM ONE (10:00)
[2017-08-31] MEDS: Potassium Chloride 20 mEq ER Tab PO SCH (10:04)
[2017-08-31] MEDS: Lactobacillus Acidophilus 500 MU Cap PO SCH ×2 (10:04→17:14)
[2017-08-31] MEDS: MethylPREDNISolone 40 mg Vial IV SCH ×2 (10:05→22:02)
[2017-08-31] MEDS: Enoxaparin 30 mg Syringe SC SCH (10:05)
--- NOTE | 2017-08-31 10:06 | CP.PCM.PN ---
Subjective - Date & Time of Evaluation Date of Evaluation: 08/30/17 Time of Evaluation: 22:00 Objective - Vital Signs/Intake and Output Vital Signs (last 24 hours): Temp Pulse Resp BP Pulse Ox 97.6 F 112 H 20 137/92 H 98 08/31/17 08:00 08/31/17 08:00 08/31/17 08:00 08/31/17 08:00 08/31/17 08:00 Intake and Output: 08/31/17 08/31/17 06:59 18:59 Intake Total 240 Balance 240 - Medications Medications: Current Medications Acetaminophen (Tylenol 325mg Tab) 650 mg PO Q6 PRN PRN Reason: Pain, Mild (1-3) Last Admin: 08/29/17 05:58 Dose: 650 mg Albuterol/Ipratropium (Duoneb 3 Mg/0.5 Mg (3 Ml) Ud) 3 ml INH RQ6 [facility] Last Admin: 08/31/17 07:16 Dose: 3 ml Budesonide (Pulmicort Respules) 0.5 mg INH RQ12 [facility] Last Admin: 08/31/17 07:16 Dose: 0.5 mg Docusate Sodium (Colace) 100 mg PO BID [facility] Last Admin: 08/30/17 17:05 Dose: 100 mg Enoxaparin Sodium (Lovenox) 30 mg SC DAILY [facility] Last Admin: 08/30/17 09:49 Dose: 30 mg Guaifenesin/Dextromethorphan (Robitussin Dm) 15 ml PO Q6 [facility] Last Admin: 08/31/17 05:47 Dose: 15 ml Ceftriaxone Sodium 1 gm/ (Sodium Chloride) 100 mls @ 100 mls/hr IVPB DAILY [facility] PRN Reason: Protocol Last Admin: 08/30/17 09:50 Dose: 100 mls/hr Lactobacillus Acidophilus (Bacid Acidophilus) 1 cap PO BID [facility] Last Admin: 08/30/17 17:05 Dose: 1 cap Methylprednisolone (Solu-Medrol) 40 mg IV Q12 [facility] Last Admin: 08/30/17 21:36 Dose: 40 mg Morphine Sulfate (Morphine) 2 mg IM Q4 PRN PRN Reason: Pain, moderate (4-7) Last Admin: 08/31/17 08:27 Dose: 2 mg Potassium Chloride (K-Dur 20 Meq Er Tab) 40 meq PO DAILY [facility] Last Admin: 08/30/17 09:44 Dose: 40 meq - Labs Labs: 08/28/17 17:27 08/30/17 07:12
--- NOTE | 2017-08-31 13:40 | CARD ---
APPROVED REPORT EKG Measurement Heart [id number] <Conclusion> Normal sinus rhythm Left axis deviation Right bundle branch block Minimal voltage criteria for LVH, may be normal variant Possible Lateral infarct, age undetermined Inferior infarct, age undetermined Abnormal ECG
--- NOTE | 2017-08-31 16:42 | CP.PCM.PN ---
Subjective - Date & Time of Evaluation Date of Evaluation: 08/31/17 Time of Evaluation: 10:30 - Subjective Subjective: Follow-up Consult History obtained using "In-Demand" Translation Services; Fashion Director Party Plan Sales: Carmenza Garrison , ID: [id number]. Patient seen and examined at bedside. Patient appears comfortable in bed without any obvious shortness of breath. Patient states she is taking home OFEV 150 mg BID, which is not on formulary at this hospital. Patient still complaining of mild shortness of breath and cough, but states cough is improved after Robitussin DM. Patient denies chest pain, palpitations, fevers, chills and dysuria. 1. Pulmonary Fibrosis Likely due to history of occupational exposure to detergents. Subjective SOB improved and patient saturating 98% on nasal cannula. Order placed for patient to continue Ofev home medication, 150 mg BID. Continue Solu-Medrol, Pulmicort and Duoneb breathing treatments. 3. Cough Improved; Continue Robitussin DM. Objective - Vital Signs/Intake and Output Vital Signs (last 24 hours): Temp Pulse Resp BP Pulse Ox 97.9 F 96 H 20 136/84 95 08/31/17 15:47 08/31/17 15:47 08/31/17 15:47 08/31/17 15:47 08/31/17 15:47 Intake and Output: 08/31/17 08/31/17 06:59 18:59 Intake Total 240 360 Balance 240 360 - Medications Medications: Current Medications Acetaminophen (Tylenol 325mg Tab) 650 mg PO Q6 PRN PRN Reason: Pain, Mild (1-3) Last Admin: 08/29/17 05:58 Dose: 650 mg Albuterol/Ipratropium (Duoneb 3 Mg/0.5 Mg (3 Ml) Ud) 3 ml INH RQ6 [facility] Last Admin: 08/31/17 13:13 Dose: 3 ml Budesonide (Pulmicort Respules) 0.5 mg INH RQ12 [facility] Last Admin: 08/31/17 07:16 Dose: 0.5 mg Docusate Sodium (Colace) 100 mg PO BID [facility] Last Admin: 08/31/17 10:04 Dose: 100 mg Enoxaparin Sodium (Lovenox) 30 mg SC DAILY [facility] Last Admin: 08/31/17 10:05 Dose: 30 mg Guaifenesin/Dextromethorphan (Robitussin Dm) 15 ml PO Q6 [facility] Last Admin: 08/31/17 12:20 Dose: 15 ml Home Med (Patient's Own Medication) 1 tab PO BID [facility] Ceftriaxone Sodium 1 gm/ (Sodium Chloride) 100 mls @ 100 mls/hr IVPB DAILY [facility] PRN Reason: Protocol Last Admin: 08/31/17 10:03 Dose: 100 mls/hr Lactobacillus Acidophilus (Bacid Acidophilus) 1 cap PO BID [facility] Last Admin: 08/31/17 10:04 Dose: 1 cap Methylprednisolone (Solu-Medrol) 40 mg IV Q12 [facility] Last Admin: 08/31/17 10:05 Dose: 40 mg Morphine Sulfate (Morphine) 2 mg IM Q4 PRN PRN Reason: Pain, moderate (4-7) Last Admin: 08/31/17 08:27 Dose: 2 mg Potassium Chloride (K-Dur 20 Meq Er Tab) 40 meq PO DAILY [facility] Last Admin: 08/31/17 10:04 Dose: 40 meq - Labs Labs: 08/28/17 17:27 08/30/17 07:12
[2017-08-31] MEDS: OFEV 150 MG PO SCH (17:14)
[2017-09-01] MEDS: Albuterol-Ipratrop 3 mg / 0.5 (3 ml) UD INH SCH ×3 (01:41→13:12)
[2017-09-01] MEDS: guaiFENesin DM 100 mg-10 mg/5 ml UD PO SCH ×3 (05:15→17:05)
[2017-09-01] MEDS: Budesonide 0.5 mg/2 ml Inhal Susp UD INH SCH (07:07)
[2017-09-01 08:41] VITALS: TEMP 98.3
--- NOTE | 2017-09-01 09:32 | CP.PCM.PN ---
Subjective - Date & Time of Evaluation Date of Evaluation: 08/31/17 Time of Evaluation: 17:00 - Subjective Subjective: Pt is less short of breath, less cough, less wheezing. electrolytes corrected Objective - Vital Signs/Intake and Output Vital Signs (last 24 hours): Temp Pulse Resp BP Pulse Ox 98.3 F 68 20 135/87 96 09/01/17 06:00 09/01/17 06:00 09/01/17 06:00 09/01/17 06:00 09/01/17 06:00 Intake and Output: 09/01/17 09/01/17 06:59 18:59 Intake Total 660 Balance 660 - Medications Medications: Current Medications Acetaminophen (Tylenol 325mg Tab) 650 mg PO Q6 PRN PRN Reason: Pain, Mild (1-3) Last Admin: 08/29/17 05:58 Dose: 650 mg Albuterol/Ipratropium (Duoneb 3 Mg/0.5 Mg (3 Ml) Ud) 3 ml INH RQ6 [facility] Last Admin: 09/01/17 07:07 Dose: 3 ml Budesonide (Pulmicort Respules) 0.5 mg INH RQ12 [facility] Last Admin: 09/01/17 07:07 Dose: 0.5 mg Docusate Sodium (Colace) 100 mg PO BID [facility] Last Admin: 08/31/17 17:14 Dose: 100 mg Enoxaparin Sodium (Lovenox) 30 mg SC DAILY [facility] Last Admin: 08/31/17 10:05 Dose: 30 mg Guaifenesin/Dextromethorphan (Robitussin Dm) 15 ml PO Q6 [facility] Last Admin: 09/01/17 05:15 Dose: 15 ml Home Med (Patient's Own Medication) 1 tab PO BID [facility] Last Admin: 08/31/17 17:14 Dose: 1 tab Ceftriaxone Sodium 1 gm/ (Sodium Chloride) 100 mls @ 100 mls/hr IVPB DAILY [facility] PRN Reason: Protocol Last Admin: 08/31/17 10:03 Dose: 100 mls/hr Lactobacillus Acidophilus (Bacid Acidophilus) 1 cap PO BID [facility] Last Admin: 08/31/17 17:14 Dose: 1 cap Methylprednisolone (Solu-Medrol) 40 mg IV Q12 [facility] Last Admin: 08/31/17 22:02 Dose: 40 mg Morphine Sulfate (Morphine) 2 mg IM Q4 PRN PRN Reason: Pain, moderate (4-7) Last Admin: 09/01/17 01:08 Dose: 2 mg Potassium Chloride (K-Dur 20 Meq Er Tab) 40 meq PO DAILY [facility] Last Admin: 08/31/17 10:04 Dose: 40 meq - Labs Labs: 08/28/17 17:27 08/30/17 07:12 - Constitutional Appears: No Acute Distress - Head Exam Head Exam: ATRAUMATIC, NORMAL INSPECTION, NORMOCEPHALIC - Eye Exam Eye Exam: EOMI, Normal appearance, PERRL Pupil Exam: NORMAL ACCOMODATION, PERRL - Respiratory Exam Respiratory Exam: Decreased Breath Sounds, Rales, Rhonchi - Cardiovascular Exam Cardiovascular Exam: REGULAR RHYTHM, +S1, +S2. absent: Murmur - GI/Abdominal Exam GI & Abdominal Exam: Soft, Normal Bowel Sounds. absent: Tenderness Assessment and Plan (1) Hypokalemia Status: Acute (2) Joint pain Status: Acute (3) Acute exacerbation of bronchiectasis Status: Acute (4) Dyspnea Status: Acute (5) Interstitial lung disease Status: Acute
[2017-09-01] MEDS ORDERED: Morphine 4 MG/ML VIAL IM PRN (10:00)
[2017-09-01] MEDS: Enoxaparin 30 mg Syringe SC SCH (10:06)
[2017-09-01] MEDS: MethylPREDNISolone 40 mg Vial IV SCH (10:07)
[2017-09-01] MEDS: OFEV 150 MG PO SCH ×2 (10:08→17:07)
[2017-09-01] MEDS: Potassium Chloride 20 mEq ER Tab PO SCH (10:08)
[2017-09-01] MEDS: Lactobacillus Acidophilus 500 MU Cap PO SCH ×2 (10:51→17:05)
--- NOTE | 2017-09-01 12:34 | CP.PCM.PN ---
Subjective - Date & Time of Evaluation Date of Evaluation: 09/01/17 Time of Evaluation: 12:34 - Subjective Subjective: Alert, awake, no sob or wheezing. Objective - Vital Signs/Intake and Output Vital Signs (last 24 hours): Temp Pulse Resp BP Pulse Ox 98.3 F 68 20 135/87 96 09/01/17 06:00 09/01/17 06:00 09/01/17 06:00 09/01/17 06:00 09/01/17 06:00 Intake and Output: 09/01/17 09/01/17 06:59 18:59 Intake Total 660 Balance 660 - Medications Medications: Current Medications Acetaminophen (Tylenol 325mg Tab) 650 mg PO Q6 PRN PRN Reason: Pain, Mild (1-3) Last Admin: 08/29/17 05:58 Dose: 650 mg Albuterol/Ipratropium (Duoneb 3 Mg/0.5 Mg (3 Ml) Ud) 3 ml INH RQ6 [facility] Last Admin: 09/01/17 07:07 Dose: 3 ml Budesonide (Pulmicort Respules) 0.5 mg INH RQ12 [facility] Last Admin: 09/01/17 07:07 Dose: 0.5 mg Docusate Sodium (Colace) 100 mg PO BID [facility] Last Admin: 09/01/17 10:08 Dose: 100 mg Enoxaparin Sodium (Lovenox) 30 mg SC DAILY [facility] Last Admin: 09/01/17 10:06 Dose: 30 mg Guaifenesin/Dextromethorphan (Robitussin Dm) 15 ml PO Q6 [facility] Last Admin: 09/01/17 11:12 Dose: 15 ml Home Med (Patient's Own Medication) 1 tab PO BID [facility] Last Admin: 09/01/17 10:08 Dose: 1 tab Lactobacillus Acidophilus (Bacid Acidophilus) 1 cap PO BID [facility] Last Admin: 09/01/17 10:51 Dose: 1 cap Methylprednisolone (Solu-Medrol) 40 mg IV Q12 [facility] Last Admin: 09/01/17 10:07 Dose: 40 mg Morphine Sulfate (Morphine) 2 mg IM Q4 PRN PRN Reason: Pain, moderate (4-7) Last Admin: 09/01/17 10:38 Dose: 2 mg Potassium Chloride (K-Dur 20 Meq Er Tab) 40 meq PO DAILY [facility] Last Admin: 09/01/17 10:08 Dose: 40 meq - Labs Labs: 08/28/17 17:27 08/30/17 07:12 Assessment and Plan - Assessment and Plan (Free Text) Assessment: Patient is seen and examined. Admitted with asthma exacerbation, bronchitis. Alert and orientedx3, no active wheezing, sob or chest pains.Discussed with ARTURO Llanes, plan to discharge home today on tapering dose of prednisone. Patient has home oxygen, nebulizer set prescription given. Advised to follow up with PMD in 1week.
[2017-09-01 17:30] VITALS: BP 141/87; PULSE 98; O2SAT 95
--- NOTE | 2017-09-01 17:38 | CP.PCM.PN ---
Subjective - Date & Time of Evaluation Date of Evaluation: 09/01/17 Time of Evaluation: 10:00 - Subjective Subjective: Reason for Consult - Pulmonary Fibrosis Patient seen and examined in bed. Patient states notable improvement in cough and shortness of breath. Patient's primary reason for admission was full-body joint pain, managed by Dr. Llanes, which she states is also improved. Patient is receiving OFEV and states the medication makes her tired, but is otherwise tolerating it well. Patient denies chest pain, fevers and chills. Assessment/Plan 1. Pulmonary Fibrosis Chronic; stable Patient advised to continue OFEV and follow-up with an outpatient battery checker. Patient advised that she will likely always have baseline shortness of breath due to chronicity of disease, but overall stable from a pulmonology standpoint. 2. Cough Chronic; improved Patient can continue Robitussin DM outpatient. Objective - Vital Signs/Intake and Output Vital Signs (last 24 hours): Temp Pulse Resp BP Pulse Ox 98.3 F 98 H 20 141/87 95 09/01/17 16:00 09/01/17 16:00 09/01/17 16:00 09/01/17 16:00 09/01/17 16:00 Intake and Output: 09/01/17 09/01/17 06:59 18:59 Intake Total 660 460 Balance 660 460 - Medications Medications: Current Medications Acetaminophen (Tylenol 325mg Tab) 650 mg PO Q6 PRN PRN Reason: Pain, Mild (1-3) Last Admin: 08/29/17 05:58 Dose: 650 mg Albuterol/Ipratropium (Duoneb 3 Mg/0.5 Mg (3 Ml) Ud) 3 ml INH RQ6 [facility] Last Admin: 09/01/17 13:12 Dose: 3 ml Budesonide (Pulmicort Respules) 0.5 mg INH RQ12 [facility] Last Admin: 09/01/17 07:07 Dose: 0.5 mg Docusate Sodium (Colace) 100 mg PO BID [facility] Last Admin: 09/01/17 17:05 Dose: 100 mg Enoxaparin Sodium (Lovenox) 30 mg SC DAILY [facility] Last Admin: 09/01/17 10:06 Dose: 30 mg Guaifenesin/Dextromethorphan (Robitussin Dm) 15 ml PO Q6 [facility] Last Admin: 09/01/17 17:05 Dose: 15 ml Home Med (Patient's Own Medication) 1 tab PO BID [facility] Last Admin: 09/01/17 17:07 Dose: Not Given Lactobacillus Acidophilus (Bacid Acidophilus) 1 cap PO BID [facility] Last Admin: 09/01/17 17:05 Dose: 1 cap Methylprednisolone (Solu-Medrol) 40 mg IV Q12 [facility] Last Admin: 09/01/17 10:07 Dose: 40 mg Morphine Sulfate (Morphine) 2 mg IM Q4 PRN PRN Reason: Pain, moderate (4-7) Last Admin: 09/01/17 10:38 Dose: 2 mg Potassium Chloride (K-Dur 20 Meq Er Tab) 40 meq PO DAILY [facility] Last Admin: 09/01/17 10:08 Dose: 40 meq - Labs Labs: 08/28/17 17:27 08/30/17 07:12
--- NOTE | 2017-09-02 08:32 | CP.PCM.DIS ---
Provider - Provider Date of Admission: 08/28/17 18:24 Attending physician: Kevin Llanes MD Time Spent in preparation of Discharge (in minutes): 45 Diagnosis - Discharge Diagnosis (1) Hypokalemia Status: Acute (2) Joint pain Status: Acute (3) Acute exacerbation of bronchiectasis Status: Acute (4) Dyspnea Status: Acute (5) Interstitial lung disease Status: Acute Hospital Course - Lab Results Lab Results: Micro Results 08/28/17 19:00 Blood Blood Culture - Preliminary NO GROWTH AFTER 4 DAYS 08/28/17 18:40 Blood Blood Culture - Preliminary NO GROWTH AFTER 4 DAYS Most Recent Lab Values WBC 11.7 K/uL (4.8-10.8) H 08/28/17 17:27 RBC 4.56 Mil/uL (3.80-5.20) 08/28/17 17:27 Hgb 14.0 g/dL (11.0-16.0) 08/28/17 17:27 Hct 40.9 % (34.0-47.0) 08/28/17 17:27 MCV 89.8 fL (81.0-99.0) 08/28/17 17:27 MCH 30.7 pg (27.0-31.0) 08/28/17 17:27 MCHC 34.2 g/dL (33.0-37.0) 08/28/17 17:27 RDW 16.0 % (11.5-14.5) H 08/28/17 17:27 Plt Count 282 K/uL (130-400) 08/28/17 17:27 MPV 8.5 fL (7.2-11.7) 08/28/17 17:27 Neut % (Auto) 64.0 % (50.0-75.0) 08/28/17 17:27 Lymph % (Auto) 21.5 % (20.0-40.0) 08/28/17 17:27 Wells % (Auto) 9.7 % (0.0-10.0) 08/28/17 17:27 Eos % (Auto) 4.6 % (0.0-4.0) H 08/28/17 17:27 Baso % (Auto) 0.2 % (0.0-2.0) 08/28/17 17:27 Neut # (Auto) 7.5 K/uL (1.8-7.0) H 08/28/17 17:27 Lymph # (Auto) 2.5 K/uL (1.0-4.3) 08/28/17 17:27 Wells # (Auto) 1.1 K/uL (0.0-0.8) H 08/28/17 17:27 Eos # (Auto) 0.5 K/uL (0.0-0.7) 08/28/17 17: Baso # (Auto) 0.0 K/uL (0.0-0.2) 08/28/17 17:27 D-Dimer, Quantitative < 200.0 ng/mlDDU (0-243) 08/28/17 17: Sodium 142 mmol/L (132-148) 08/30/17 07:12 Potassium 3.9 mmol/L (3.6-5.2) 08/30/17 07:12 Chloride 107 mmol/L (98-107) 08/30/17 07:12 Carbon Dioxide 29 mmol/L (22-30) 08/30/17 07:12 Anion Gap 10 (10-20) 08/30/17 07:12 BUN 12 mg/dL (7-17) 08/30/17 07:12 Creatinine 0.6 mg/dL (0.7-1.2) L 08/30/17 07:12 Est GFR ( Amer) > 60 08/30/17 07:12 Est GFR (Non-Af Amer) > 60 08/30/17 07:12 Random Glucose 171 mg/dL (65-105) H 08/30/17 07:12 Calcium 8.3 mg/dl (8.6-10.4) L 08/30/17 07:12 Total Bilirubin 0.6 mg/dL (0.2-1.3) 08/28/17 17: AST 33 U/L (14-36) 08/28/17 17: ALT 24 U/L (9-52) 08/28/17 17:27 Alkaline Phosphatase 95 U/L (38-126) 08/28/17 17:27 Troponin I < 0.0120 ng/mL (0.00-0.120) 08/28/17 17: NT-Pro-B Natriuret Pep 223 pg/mL (0-900) 08/28/17 17:27 Total Protein 7.0 g/dL (6.3-8.3) 08/28/17 17:27 Albumin 3.6 g/dL (3.5-5.0) 08/28/17 17:27 Globulin 3.4 gm/dL (2.2-3.9) 08/28/17 17:27 Albumin/Globulin Ratio 1.1 (1.0-2.1) 08/28/17 17:27 Lipase 34 U/L (23-300) 08/28/17 17:27 Urine Color Dena (YELLOW) 08/28/17 19:58 Urine Clarity Hazy (Clear) 08/28/17 19:58 Urine pH 6.0 (5.0-8.0) 08/28/17 19:58 Ur Specific [place] 1.026 (1.003-1.030) 08/28/17 19:58 Urine Protein Negative mg/dL (NEGATIVE) 08/28/17 19:58 Urine Glucose (UA) Normal mg/dL (Normal) 08/28/17 19:58 Urine Ketones 1+ mg/dL (NEGATIVE) H 08/28/17 19:58 Urine Blood Negative (NEGATIVE) 08/28/17 19:58 Urine Nitrate Negative (NEGATIVE) 08/28/17 19:58 Urine Bilirubin Negative (NEGATIVE) 08/28/17 19:58 Urine Urobilinogen 2.0 mg/dL (0.2-1.0) H 08/28/17 19:58 Ur Leukocyte Esterase 1+ Lisa/uL (Negative) H 08/28/17 19:58 Urine WBC (Auto) 5 /hpf (0-5) 08/28/17 19:58 Urine RBC (Auto) 15 /hpf (0-3) H 08/28/17 19:58 Ur Squamous Epith Cells 10 /hpf (0-5) H 08/28/17 19:58 Urine Bacteria Many (<OCC) H 08/28/17 19:58 Discharge Exam - Head Exam Head Exam: ATRAUMATIC, NORMAL INSPECTION, NORMOCEPHALIC Discharge Plan - Discharge Medications Prescriptions: Nebulizer Accessories [A.i.r.s. Nebulizer] 1 each MC QID PRN 30 Days kit PRN Reason: Wheezing guaiFENesin [Mucinex LA] 600 mg PO TID #14 tab predniSONE [Prednisone] 10 mg PO DAILY #20 tab - Follow Up Plan Condition: FAIR Disposition: HOME/ ROUTINE Instructions: Hypokalemia (DC), High Potassium Diet, Interstitial Lung Disease Referrals: Carla Casey MD [Staff Provider] -
== END 2017-09-01 18:31 | disposition home or self-care (01) | DRG 197 ==
LOC: C.ER 16:39 → C.9E 18:24 → C.3T 19:34
PROVIDERS: ADMIT Internal Medicine; ATTEND Internal Medicine
DX: J84.10 Pulmonary fibrosis, unspecified (principal); J45.901 Unspecified asthma with (acute) exacerbation; J47.1 Bronchiectasis with (acute) exacerbation; N39.0 Urinary tract infection, site not specified; E87.6 Hypokalemia; Z99.81 Dependence on supplemental oxygen; Z87.01 Personal history of pneumonia (recurrent)

== ENCOUNTER 2018-06-08 10:45 | Outpatient (CLI) | payer OTHER | END 2018-06-08 10:46 | disposition home or self-care (01) | LOC: C.DEXAIC 10:45 ==

== ENCOUNTER 2018-06-12 12:37 | Inpatient (IN) | payer OTHER ==
[2018-06-12 12:53] VITALS: BMI 26.0
[2018-06-12] MEDS ORDERED: Albuterol-Ipratrop 3 mg / 0.5 (3 ml) UD INH STA ×3 (13:11→13:12)
[2018-06-12] MEDS ORDERED: MethylPREDNISolone 40 mg Vial IVP STA (13:11)
[2018-06-12] MEDS ORDERED: Albuterol-Ipratrop 3 mg / 0.5 (3 ml) UD ONE ×2 (13:27→21:44)
--- NOTE | 2018-06-12 13:38 | C.PDOC ---
History Of Present Illness 73 y/o female, with history of pulmonary fibrosis, comes in for evaluation of worsening SOB and cough x1 week. Cough is productive with white sputum. Patient has no complaints of pain. Denies fever, chills, or chest pain. Reports she had similar previous symptoms in the past. Patient has no other complaints at this time. ran out of nebs at home Time Seen by Provider: 06/12/18 13:02 Chief Complaint (Nursing): Shortness Of Breath History Per: Patient History/Exam Limitations: no limitations Onset/Duration Of Symptoms: Days Current Symptoms Are (Timing): Still Present Past Medical History Reviewed: Historical Data, Nursing Documentation, Vital Signs Vital Signs: Last Vital Signs Temp 98.4 F 06/12/18 12:50 Pulse 106 H 06/12/18 12:50 Resp 24 06/12/18 12:50 BP 143/93 H 06/12/18 12:50 Pulse Ox 90 L 06/12/18 12:50 - Medical History PMH: Arthritis, Asthma, Bronchitis, COPD (BRONCHITIS), Fractures (dislocation of elbow 2013), Pneumonia Denies: Anxiety, Chronic Kidney Disease - [facility] Procedures CL REDUC DISLOC-ELBOW (09/23/13) Family History: States: No Known Family Hx - Social History Hx Tobacco Use: No Hx Alcohol Use: No Hx Substance Use: No - Immunization History Hx Tetanus Toxoid Vaccination: No Hx Influenza Vaccination: Yes Hx Pneumococcal Vaccination: Yes Review Of Systems Except As Marked, All Systems Reviewed And Found Negative. Constitutional: Negative for: Fever, Chills Cardiovascular: Negative for: Chest Pain Respiratory: Positive for: Cough (productive), Shortness of Breath, Sputum (white) Physical Exam - Physical Exam Appears: Non-toxic, No Acute Distress Skin: Warm, Dry Head: Atraumatic, Normacephalic Eye(s): bilateral: Normal Inspection Oral Mucosa: Moist Neck: Supple Chest: Symmetrical Cardiovascular: Rhythm Regular, No Murmur Respiratory: No Rales, No Rhonchi, No Wheezing, Other (Coarse breath sounds bilaterally) Gastrointestinal/Abdominal: Soft, No Tenderness Extremity: No Pedal Edema Extremity: Bilateral: Atraumatic, Normal Color And Temperature, Normal ROM Neurological/Psych: Oriented x3, Normal Speech ED Course And Treatment - Laboratory Results Result Diagrams: 06/12/18 13:48 06/12/18 13:48 ECG: Interpreted By Me, Viewed By Me ECG Rhythm: Sinus Rhythm, R BBB Rate From EC O2 Sat by Pulse Oximetry: 90 (RA) Pulse Ox Interpretation: Abnormal - Other Rad CXR X-Ray: Read By Radiologist Interpretation: Findings: Prominent diffuse increased interstitial lung markings bilaterally suggestive for interstitial infiltrate and or edema superimposed on chronic fibrotic changes. Bilateral hilar prominence. Enlarged ectatic aorta. Cardiomegaly. Degenerative changes in the spine and shoulders. Impression: Prominent diffuse increased interstitial lung markings bilaterally suggestive for interstitial infiltrate and or edema superimposed on chronic fibrotic changes. Bilateral hilar prominence. Enlarged ectatic aorta. Cardiomegaly. Medical Decision Making Medical Decision Making: interstital lung disease exacerbation - coarse bs on exam. nebs steriods Plan: --EKG --Labs --Chest XR --Solumedrol --Duoneb --UA symptoms improving but persisitent. cxr diffuse interstial disease cannot r.o underlying infiltrate. antibiotics given. accepted dr llanes Disposition - Disposition Disposition: HOSPITALIZED Disposition Time: 16:00 Condition: FAIR - Clinical Impression Clinical Impression: Interstitial lung disease - Scribe Statement The provider has reviewed the documentation as recorded by the Fredi Cooper Provider Attestation: All medical record entries made by the Fadiaibe were at my direction and personally dictated by me. I have reviewed the chart and agree that the record accurately reflects my personal performance of the history, physical exam, medical decision making, and the department course for this patient. I have also personally directed, reviewed, and agree with the discharge instructions and disposition. Decision To Admit - Pt Status Changed To: Hospital Disposition Of: Inpatient - Admit Certification Admit to Inpatient:: After my assessment, the patient will require hospitalization for at least two midnights. This is because of the severity of symptoms shown, intensity of services needed, and/or the medical risk in this patient being treated as an outpatient. - InPatient: Physician Admission Certification: I certify that this patient requires 2 or more midnights of care for the following reason:: needs nebs steriods - . Bed Request Type: Telemetry Admitting Physician: Kevin Llanes Patient Diagnosis: Interstitial lung disease
--- NOTE | 2018-06-12 13:57 | RAD ---
Chest x-ray single frontal view HISTORY: Chest pain. Findings: Prominent diffuse increased interstitial lung markings bilaterally suggestive for interstitial infiltrate and or edema superimposed on chronic fibrotic changes. Bilateral hilar prominence. Enlarged ectatic aorta. Cardiomegaly. Degenerative changes in the spine and shoulders. Impression: Prominent diffuse increased interstitial lung markings bilaterally suggestive for interstitial infiltrate and or edema superimposed on chronic fibrotic changes. Bilateral hilar prominence. Enlarged ectatic aorta. Cardiomegaly.
[2018-06-12] MEDS ORDERED: Azithromycin 500 MG in Sodium Chloride 0.9% 250 ML IVPB STA (13:59)
[2018-06-12 14:01] LABS: BASO # 0.1 K/uL (0.0-0.2); EOS # 0.2 K/uL (0.0-0.7); EOS % 1.9 % (0.0-4.0); HEMOGLOBIN 13.4 g/dL (11.0-16.0); LYMPH # 2.8 K/uL (1.0-4.3); LYMPH % 23.4 % (20.0-40.0); MEAN CELL VOLUME 88.9 fL (81.0-99.0); MEAN CORPUSCULAR HGB CONC 32.7 g/dL (33.0-37.0); MEAN PLATELET VOLUME 9.1 fL (7.2-11.7); MONO % 8.6 % (0.0-10.0); NEUT # 7.9 K/uL (1.8-7.0); NEUT % 65.1 % (50.0-75.0); NRBC % 0.1 % (0.0-2.0); RBC 4.61 Mil/uL (3.80-5.20); RED CELL DISTRIBUTION WIDTH 15.8 % (11.5-14.5); WHITE BLOOD COUNT 12.1 K/uL (4.8-10.8)
[2018-06-12] MEDS ORDERED: Azithromycin 500mg/250ML NS 500 MG/250 ML BAG IVPB ONE (14:05)
[2018-06-12 14:07] LABS: ALB/GLOB RATIO 1.2 (1.0-2.1); ALBUMIN 3.9 g/dL (3.5-5.0); ALT/SGPT 16 U/L (9-52); AST/SGOT 29 U/L (14-36); BLOOD UREA NITROGEN 14 mg/dL (7-17); GFR NON-AFRICAN AMERICAN > 60
[2018-06-12 14:09] LABS: PROTHROMBIN TIME 11.4 SECONDS (9.7-12.2)
[2018-06-12 14:14] LABS: B-TYPE NATRIURETIC PEPTIDE 274 pg/mL (0-900)
[2018-06-12 18:47] LABS: SQUAMOUS EPITHIAL < 1 /hpf (0-5); URINE BILIRUBIN NEGATIVE (NEGATIVE); URINE BLOOD NEGATIVE (NEGATIVE); URINE CLARITY Clear (Clear); URINE COLOR Yellow (YELLOW); URINE GLUCOSE (UA) NORMAL (Normal); URINE LEUKOCYTE ESTERASE NEG Leu/uL (Negative); URINE PROTEIN NEGATIVE (NEGATIVE); URINE UROBILINOGEN NORMAL mg/dL (0.2-1.0)
[2018-06-12] MEDS ORDERED: Naproxen 550 mg Tab PO PRN (21:52)
[2018-06-13] MEDS: Albuterol-Ipratrop 3 mg / 0.5 (3 ml) UD INH SCH ×4 (00:25→19:39)
[2018-06-13] MEDS: guaiFENesin 200 mg/10 ml Syrup UD PO PRN ×3 (05:09→16:23)
[2018-06-13] MEDS: Budesonide 0.5 mg/2 ml Inhal Susp UD INH SCH ×2 (07:38→19:39)
[2018-06-13] MEDS: Enoxaparin 40 mg Syringe SC SCH (09:55)
--- NOTE | 2018-06-13 17:50 | CP.PCM.CON ---
History of Present Illness - History of Present Illness History of Present Illness: Patient is a 73 years old female with PMHX of Pulmonary Fibrosis complaining of worsening SOB and Cough for the past week. Patient reports that she had similar symptoms in the past. Patient states that she recently ran out of Duonebs and Prednisone at home. Patient is refusing Antifibrotic medication. She is also accusing that someone is trying to harm her, however she does not know who it is. Patient admits to cough with white/yellow phlegm and SOB. Patient denies fevers, chills, chest pain, hemoptysis. Psychiatry was consulted regarding accusations of someone trying to harm her. PMHX: Arthritis, Asthma, Bronchitis, COPD, Pneumonia FAMILY HX: Noncontributory ALL: Iodine MEDS: As per chart Chest X-Ray 06/12- Prominent diffuse increased interstitial lung markings bilaterally suggestive for interstitial infiltrate and/or edema superimposed on chronic fibrotic changes. Bilateral hilar prominence. Enlarged ectatic aorta. C ardiomegaly. Physical Exam Oxygen Saturation 98% Room General: NAD Cardio: S1. S2, No murmurs, rubs, gallops Resp: Crockles Bilaterally Abd: Soft, non-tender, No rebound, rigidity, guarding A/P 1. Pulmonary Fibrosis -Chronic -Patient refusing antifibrotic medications -Repeat CT -Continue Duonebs -Continue Solu-Medrol -Continue Singulair 2. Paranoia -Psych Consulted Past Patient History - Past Medical History & Family History Past Medical History?: Yes - Past Social History Smoking Status: Never Smoked - CARDIAC Hx Cardiac Disorders: No - PULMONARY Hx Asthma: Yes Hx Bronchitis: Yes Hx Chronic Obstructive Pulmonary Disease (COPD): Yes (BRONCHITIS) Hx Pneumonia: Yes - NEUROLOGICAL Hx Neurological Disorder: No - HEENT Hx HEENT Problems: No - RENAL Hx Chronic Kidney Disease: No - ENDOCRINE/METABOLIC Hx Endocrine Disorders: No - HEMATOLOGICAL/ONCOLOGICAL Hx Blood Disorders: No Hx Blood Transfusions: No - INTEGUMENTARY Hx Dermatological Problems: No - MUSCULOSKELETAL/RHEUMATOLOGICAL Hx Arthritis: Yes Hx Falls: No Hx Fractures: Yes (dislocation of elbow 2013) - GASTROINTESTINAL Hx Gastrointestinal Disorders: No - GENITOURINARY/GYNECOLOGICAL Hx Genitourinary Disorders: No - PSYCHIATRIC Hx Substance Use: No - SURGICAL HISTORY Hx Surgeries: Yes Other/Comment: 'LUNG SX'/BIOPSY? 2016 - ANESTHESIA Hx Anesthesia: Yes Hx Anesthesia Reactions: No Hx Malignant Hyperthermia: No Has any member of the family had a problem w/ anesthesia?: No Meds Allergies/Adverse Reactions: Allergies Allergy/AdvReac Type Severity Reaction Status Date / Time iodine Allergy Verified 06/12/18 12:50 - Medications Medications: Current Medications Albuterol/Ipratropium (Duoneb 3 Mg/0.5 Mg (3 Ml) Ud) 3 ml INH RQ6 [facility] Last Admin: 06/13/18 13:38 Dose: 3 ml Budesonide (Pulmicort Respules) 0.5 mg INH RQ12 [facility] Last Admin: 06/13/18 07:38 Dose: 0.5 mg Enoxaparin Sodium (Lovenox) 40 mg SC DAILY [facility] Last Admin: 06/13/18 09:55 Dose: 40 mg Guaifenesin (Robitussin) 200 mg PO Q4H PRN PRN Reason: Cough and congestion Last Admin: 06/13/18 16:23 Dose: 200 mg Ipratropium [place] (Atrovent Hfa) 2 puff IH RQ6 [facility] Methylprednisolone (Solu-Medrol) 60 mg IVP Q12 [facility] Montelukast Sodium (Singulair) 10 mg PO HS [facility] Last Admin: 06/12/18 22:08 Dose: 10 mg Naproxen (Anaprox Ds) 550 mg PO BIDCC PRN PRN Reason: Pain, Mild (1-3) Results - Vital Signs Recent Vital Signs: Last Vital Signs Temp 98.1 F 06/13/18 14:00 Pulse 101 H 06/13/18 14:00 Resp 19 06/13/18 14:00 BP 138/80 06/13/18 14:00 Pulse Ox 99 06/13/18 14:00 - Labs Result Diagrams: 06/12/18 13:48 06/12/18 13:48 Labs: Laboratory Results - last 24 hr 06/12/18 18:27 Urine Color Yellow Urine Clarity Clear Urine pH 5.0 Ur Specific [place] 1.010 Urine Protein Negative Urine Glucose (UA) Normal Urine Ketones Negative Urine Blood Negative Urine Nitrate Negative Urine Bilirubin Negative Urine Urobilinogen Normal Ur Leukocyte Esterase Neg Urine WBC (Auto) < 1 Ur Squamous Epith Cells < 1
--- NOTE | 2018-06-13 21:15 | CP.PCM.HP ---
Present on Admission - Present on Admission Any Indicators Present on Admission: No Past Patient History - Past Medical History & Family History Past Medical History?: Yes - Past Social History Smoking Status: Never Smoked - CARDIAC Hx Cardiac Disorders: No - PULMONARY Hx Asthma: Yes Hx Bronchitis: Yes Hx Chronic Obstructive Pulmonary Disease (COPD): Yes (BRONCHITIS) Hx Pneumonia: Yes - NEUROLOGICAL Hx Neurological Disorder: No - HEENT Hx HEENT Problems: No - RENAL Hx Chronic Kidney Disease: No - ENDOCRINE/METABOLIC Hx Endocrine Disorders: No - HEMATOLOGICAL/ONCOLOGICAL Hx Blood Disorders: No Hx Blood Transfusions: No - INTEGUMENTARY Hx Dermatological Problems: No - MUSCULOSKELETAL/RHEUMATOLOGICAL Hx Arthritis: Yes Hx Falls: No Hx Fractures: Yes (dislocation of elbow 2013) - GASTROINTESTINAL Hx Gastrointestinal Disorders: No - GENITOURINARY/GYNECOLOGICAL Hx Genitourinary Disorders: No - PSYCHIATRIC Hx Substance Use: No - SURGICAL HISTORY Hx Surgeries: Yes Other/Comment: 'LUNG SX'/BIOPSY? 2016 - ANESTHESIA Hx Anesthesia: Yes Hx Anesthesia Reactions: No Hx Malignant Hyperthermia: No Has any member of the family had a problem w/ anesthesia?: No Meds Allergies/Adverse Reactions: Allergies Allergy/AdvReac Type Severity Reaction Status Date / Time iodine Allergy Verified 06/12/18 12:50 Results - Vital Signs Recent Vital Signs: Last Vital Signs Temp 98.1 F 06/13/18 14:00 Pulse 101 H 06/13/18 14:00 Resp 19 06/13/18 14:00 BP 138/80 06/13/18 14:00 Pulse Ox 99 06/13/18 14:00 - Labs Result Diagrams: 06/12/18 13:48 06/12/18 13:48
[2018-06-13 21:19] VITALS: RESP 20
[2018-06-13] MEDS: MethylPREDNISolone 40 mg Vial IVP SCH (21:39)
[2018-06-13] MEDS ORDERED: Ipratropium 17 mcg/puff-200 puff/12.5 gm HFA Inh IH SCH (22:00)
--- NOTE | 2018-06-13 22:45 | CP.PCM.CON ---
History of Present Illness - History of Present Illness History of Present Illness: 73 y/o female, with history of pulmonary fibrosis, comes in for evaluation of worsening SOB and cough x1 week. Cough is productive with white sputum. Patient has no complaints of pain. Denies fever, chills, or chest pain. Reports she had similar previous symptoms in the past. Patient has no other complaints at this time. ran out of nebs at home Chief Complaint (Nursing): Shortness Of Breath History Per: Patient History/Exam Limitations: no limitations Onset/Duration Of Symptoms: Days Current Symptoms Are (Timing): Still Present - Medical History PMH: Arthritis, Asthma, Bronchitis, COPD (BRONCHITIS), Fractures (dislocation of elbow 2013), Pneumonia Denies: Anxiety, Chronic Kidney Disease - [facility] Procedures CL REDUC DISLOC-ELBOW (09/23/13) Family History: States: No Known Family Hx - Social History Hx Tobacco Use: No Hx Alcohol Use: No Hx Substance Use: No - Immunization History Hx Tetanus Toxoid Vaccination: No Hx Influenza Vaccination: Yes Hx Pneumococcal Vaccination: Yes Review Of Systems Except As Marked, All Systems Reviewed And Found Negative. Constitutional: Negative for: Fever, Chills Cardiovascular: Negative for: Chest Pain Respiratory: Positive for: Cough (productive), Shortness of Breath, Sputum (wh ite) Physical Exam - Physical Exam Appears: Non-toxic, No Acute Distress Skin: Warm, Dry Head: Atraumatic, Normacephalic Eye(s): bilateral: Normal Inspection Oral Mucosa: Moist Neck: Supple Chest: Symmetrical Cardiovascular: Rhythm Regular, No Murmur Respiratory: No Rales, No Rhonchi, No Wheezing, Other (Coarse breath sounds bilaterally) Gastrointestinal/Abdominal: Soft, No Tenderness Extremity: No Pedal Edema Extremity: Bilateral: Atraumatic, Normal Color And Temperature, Normal ROM Neurological/Psych: Oriented x3, Normal Speech Past Patient History - Past Medical History & Family History Past Medical History?: Yes - Past Social History Smoking Status: Never Smoked - CARDIAC Hx Cardiac Disorders: No - PULMONARY Hx Asthma: Yes Hx Bronchitis: Yes Hx Chronic Obstructive Pulmonary Disease (COPD): Yes (BRONCHITIS) Hx Pneumonia: Yes - NEUROLOGICAL Hx Neurological Disorder: No - HEENT Hx HEENT Problems: No - RENAL Hx Chronic Kidney Disease: No - ENDOCRINE/METABOLIC Hx Endocrine Disorders: No - HEMATOLOGICAL/ONCOLOGICAL Hx Blood Disorders: No Hx Blood Transfusions: No - INTEGUMENTARY Hx Dermatological Problems: No - MUSCULOSKELETAL/RHEUMATOLOGICAL Hx Arthritis: Yes Hx Falls: No Hx Fractures: Yes (dislocation of elbow 2013) - GASTROINTESTINAL Hx Gastrointestinal Disorders: No - GENITOURINARY/GYNECOLOGICAL Hx Genitourinary Disorders: No - PSYCHIATRIC Hx Substance Use: No - SURGICAL HISTORY Hx Surgeries: Yes Other/Comment: 'LUNG SX'/BIOPSY? 2016 - ANESTHESIA Hx Anesthesia: Yes Hx Anesthesia Reactions: No Hx Malignant Hyperthermia: No Has any member of the family had a problem w/ anesthesia?: No Meds Allergies/Adverse Reactions: Allergies Allergy/AdvReac Type Severity Reaction Status Date / Time iodine Allergy Verified 06/12/18 12:50 - Medications Medications: Current Medications Albuterol/Ipratropium (Duoneb 3 Mg/0.5 Mg (3 Ml) Ud) 3 ml INH RQ6 [facility] Last Admin: 06/13/18 19:39 Dose: 3 ml Budesonide (Pulmicort Respules) 0.5 mg INH RQ12 [facility] Last Admin: 06/13/18 19:39 Dose: 0.5 mg Enoxaparin Sodium (Lovenox) 40 mg SC DAILY [facility] Last Admin: 06/13/18 09:55 Dose: 40 mg Guaifenesin (Robitussin) 200 mg PO Q4H PRN PRN Reason: Cough and congestion Last Admin: 06/13/18 16:23 Dose: 200 mg Ipratropium [place] (Atrovent Hfa) 2 puff IH RQ6 [facility] Methylprednisolone (Solu-Medrol) 60 mg IVP Q12 [facility] Last Admin: 06/13/18 21:39 Dose: 60 mg Montelukast Sodium (Singulair) 10 mg PO HS [facility] Last Admin: 06/13/18 21:39 Dose: 10 mg Naproxen (Anaprox Ds) 550 mg PO BIDCC PRN PRN Reason: Pain, Mild (1-3) Results - Vital Signs Recent Vital Signs: Last Vital Signs Temp 98 F 06/13/18 20:00 Pulse 88 06/13/18 20:00 Resp 20 06/13/18 20:00 BP 138/80 06/13/18 14:00 Pulse Ox 95 06/13/18 20:00 - Labs Result Diagrams: 06/12/18 13:48 06/12/18 13:48 Assessment & Plan - Assessment and Plan (Free Text) Assessment: A/P 1. Dyspnea r/o CHF ECHO pending 2. Pulmonary Fibrosis -Chronic -Patient refusing antifibrotic medications -Repeat CT -Continue Duonebs -Continue Solu-Medrol -Continue Singulair 3. Paranoia -Psych Consulted
[2018-06-14] MEDS: Albuterol-Ipratrop 3 mg / 0.5 (3 ml) UD INH SCH ×3 (02:04→19:00)
[2018-06-14] MEDS: guaiFENesin 200 mg/10 ml Syrup UD PO PRN ×4 (06:24→22:17)
--- NOTE | 2018-06-14 07:07 | HP ---
CHIEF COMPLAINT: Shortness of breath x1 week. HISTORY OF PRESENT ILLNESS: This is a 73-year-old female with history of interstitial pulmonary fibrosis, chronically sick, home bound, on oxygen nebulizer treatment, and she refuses antifibrotic medications. The patient is compliant with her diet, medication, and followup. At times, she gets delusional, and she thinks as if someone is trying to harm her. The patient has history of multiple prior hospitalizations. Today, she came back after she ran out of her prednisone and DuoNeb. She started having cough, congestion, shortness of breath, wheezing, thick yellow sputum production associated with tiredness. She denies having fever, chills. She has had chest pain upon chest congestion. She denies any hemoptysis, melena, hematochezia. She denies any nausea, vomiting, or diarrhea. She denies any polyuria, polydipsia, and polyphagia. She denies any hematuria or pyuria. She denies any history of trauma, fall, or loss of consciousness. She denies any back pain or hip. The patient denies any nocturia. The patient denies any history of left precordial chest pain. There is no history of allergy. There is no history of pets at home. PAST MEDICAL HISTORY: Interstitial pulmonary fibrosis, prior pneumonia, osteoarthritis. FAMILY HISTORY: Noncontributory. SOCIAL HISTORY: Nonsmoker, non-EtOH user. CURRENT MEDICATIONS: Singulair, prednisone, nebulizer, DuoNeb, Naprosyn, Atrovent, Pulmicort Respules. ALLERGIES: ALLERGIC TO IODINE. PHYSICAL EXAMINATION: GENERAL: An elderly female, in moderate respiratory distress. VITAL SIGNS: Blood pressure 138/76, pulse 72, respiratory rate 19, and temperature 98.1. SKIN: Senile turgor. No bruises. No purpura. No petechiae. No ecchymosis. HEENT: Atraumatic and normocephalic. Negative pallor. Negative jaundice. Extraocular movements are intact. NECK: Supple. Using accessory muscles on respiration. No JVD. No lymph node. No thyromegaly. No carotid bruits. CHEST WALL: Bilateral symmetrical expansion. No tenderness. No deformity. No nipple discharge. Breasts are negative with no masses. LUNGS: Bilateral. Fine crackles all the way from top to bottom bilaterally, equal with bilateral equal air entry. No rhonchi. CARDIOVASCULAR SYSTEM: PMI in fifth intercostal space. S1 and S2. Regular. No heave. No thrill. ABDOMEN: Soft and nontender. Bowel sounds are positive. EXTREMITIES: No clubbing, cyanosis, or edema. CENTRAL NERVOUS SYSTEM: Awake, alert, and oriented x3. Cranial nerves II through XII are normal. Power 5/5 x4. Plantars are downgoing. ASSESSMENT: 1. Exacerbation of dyspnea due to interstitial pulmonary fibrosis. 2. Tracheobronchitis rule out pneumonia. PLAN: Admit. Detailed orders are written. Solu-Medrol, oxygen, nebulizer treatment. Monitor the patient. Kevin Llanes MD
[2018-06-14] MEDS: Budesonide 0.5 mg/2 ml Inhal Susp UD INH SCH ×2 (08:24→19:00)
[2018-06-14] MEDS: MethylPREDNISolone 40 mg Vial IVP SCH ×2 (10:07→21:01)
[2018-06-14] MEDS: Enoxaparin 40 mg Syringe SC SCH (10:07)
[2018-06-14] MEDS: Vancomycin 1 gm/NS 200 ml 1 GM/200 ML BAG IVPB SCH ×2 (11:00→21:01)
--- NOTE | 2018-06-14 16:14 | CP.PCM.PN ---
Subjective - Date & Time of Evaluation Date of Evaluation: 06/14/18 Time of Evaluation: 12:35 - Subjective Subjective: Patient seen and examined Patient states cough and breathing better Afebrile No chest pain Objective - Vital Signs/Intake and Output Vital Signs (last 24 hours): Temp Pulse Resp BP Pulse Ox 98 F 95 H 20 133/81 95 06/14/18 13:39 06/14/18 13:39 06/14/18 13:39 06/14/18 13:39 06/14/18 13:39 Intake and Output: 06/14/18 06/14/18 06:59 18:59 Intake Total 120 Balance 120 - Medications Medications: Current Medications Albuterol/Ipratropium (Duoneb 3 Mg/0.5 Mg (3 Ml) Ud) 3 ml INH RQ6 [facility] Last Admin: 06/14/18 08:24 Dose: 3 ml Budesonide (Pulmicort Respules) 0.5 mg INH RQ12 [facility] Last Admin: 06/14/18 08:24 Dose: 0.5 mg Enoxaparin Sodium (Lovenox) 40 mg SC DAILY [facility] Last Admin: 06/14/18 10:07 Dose: 40 mg Guaifenesin (Robitussin) 200 mg PO Q4H PRN PRN Reason: Cough and congestion Last Admin: 06/14/18 10:09 Dose: 200 mg Vancomycin/Sodium Chloride (Vancomycin 1 Gm/Ns 200 Ml) 1 gm in 200 mls @ 133 mls/hr IVPB Q12H [facility]; Protocol Stop: 06/19/18 09:01 Last Admin: 06/14/18 11:00 Dose: 133 mls/hr Ipratropium [place] (Atrovent Hfa) 2 puff IH RQ6 [facility] Methylprednisolone (Solu-Medrol) 60 mg IVP Q12 [facility] Last Admin: 06/14/18 10:07 Dose: 60 mg Montelukast Sodium (Singulair) 10 mg PO HS [facility] Last Admin: 06/13/18 21:39 Dose: 10 mg Naproxen (Anaprox Ds) 550 mg PO BIDCC PRN PRN Reason: Pain, Mild (1-3) - Labs Labs: 06/12/18 13:48 06/12/18 13:48 PT 11.4 SECONDS (9.7-12.2) 06/12/18 13:48 INR 1.0 06/12/18 13:48 APTT 31 SECONDS (21-34) 06/12/18 13:48 - Head Exam Head Exam: ATRAUMATIC, NORMOCEPHALIC - ENT Exam ENT Exam: Mucous Membranes Moist - Neck Exam Neck Exam: Normal Inspection - Respiratory Exam Respiratory Exam: Rales - Cardiovascular Exam Cardiovascular Exam: REGULAR RHYTHM - GI/Abdominal Exam GI & Abdominal Exam: Soft, Normal Bowel Sounds - Extremities Exam Extremities Exam: Normal Inspection - Neurological Exam Neurological Exam: Alert, Oriented x3 Assessment and Plan (1) Interstitial lung disease Assessment & Plan: Continue IV steroids Continue nebulizer treatment Patient still refusing anti-fibrotic medicine understand the risks Continue antitussive Status: Acute (2) Asthma Status: Chronic
--- NOTE | 2018-06-14 22:04 | CARD ---
APPROVED REPORT Date of service: 06/14/2018 EXAM: Two-dimensional and M-mode echocardiogram with Doppler and color Doppler. Other Information Quality : GoodGoodRhythm : INDICATION Dyspnea COPD 2D DIMENSIONS IVSd0.7 (0.7-1.1cm)LVDd4.8 (3.9-5.9cm) PWd0.7 (0.7-1.1cm)LA Mpmijf08 (18-58mL) LVDs4.0 (2.5-4.0cm)FS (%) 16.8 % LVEF (%)50.0 (>50%)LVEF ([place]oto's)55.59 % IVC0.00 cm M-Mode DIMENSIONS RVDd2.05 (2.1-3.2cm)Left Atrium (MM)3.35 (2.5-4.0cm) IVSd0.68 (0.7-1.1cm)Aortic Root3.18 (2.2-3.7cm) LVDd5.37 (4.0-5.6cm)Aortic Cusp Exc.1.81 (1.5-2.0cm) PWd0.81 (0.7-1.1cm)FS (%) 29 % LVDs3.81 (2.0-3.8cm)TAPSE13.64 cm LVEF (%)55 (>50%) Mitral Valve MV E Kmeekznl25.9cm/sMV A Poetkpyf75.3cm/sE/A ratio1.0 TDI Lateral E' Peak V8.35cm/sMedial E' Peak V5.13cm/sE/Lateral E'9.7 E/Medial E'15.8 Tricuspid Valve TR Peak [id number]/sTR Peak Gr.[id number] LEFT VENTRICLE The left ventricle is normal size. There is normal left ventricular wall thickness. The left ventricular function is normal. The left ventricular ejection fraction is within the normal range. There is normal LV segmental wall motion. Transmitral Doppler flow pattern is abnormal. RIGHT VENTRICLE The right ventricle is normal size. ATRIA The left atrium size is normal. The right atrium size is normal. AORTIC VALVE The aortic valve is normal in structure. MITRAL VALVE Mitral regurgitation is trace to mild. TRICUSPID VALVE There is mild tricuspid regurgitation. <Conclusion> Normal LV systolic function. Diastolic dysfunction. Trace to mild MR. Mild TR. Normal chamber size.
--- NOTE | 2018-06-15 00:02 | CP.PCM.PN ---
Subjective - Date & Time of Evaluation Date of Evaluation: 06/14/18 Time of Evaluation: 07:00 - Subjective Subjective: dictated Objective - Vital Signs/Intake and Output Vital Signs (last 24 hours): Temp Pulse Resp BP Pulse Ox 97.9 F 82 20 110/71 97 06/14/18 16:00 06/14/18 16:20 06/14/18 16:00 06/14/18 16:00 06/14/18 16:00 Intake and Output: 06/14/18 06/15/18 18:59 06:59 Intake Total 500 Output Total 200 Balance 300 - Medications Medications: Current Medications Albuterol/Ipratropium (Duoneb 3 Mg/0.5 Mg (3 Ml) Ud) 3 ml INH RQ6 [facility] Last Admin: 06/14/18 19:00 Dose: 3 ml Budesonide (Pulmicort Respules) 0.5 mg INH RQ12 [facility] Last Admin: 06/14/18 19:00 Dose: 0.5 mg Enoxaparin Sodium (Lovenox) 40 mg SC DAILY [facility] Last Admin: 06/14/18 10:07 Dose: 40 mg Guaifenesin (Robitussin) 200 mg PO Q4H PRN PRN Reason: Cough and congestion Last Admin: 06/14/18 22:17 Dose: 200 mg Vancomycin/Sodium Chloride (Vancomycin 1 Gm/Ns 200 Ml) 1 gm in 200 mls @ 133 mls/hr IVPB Q12H [facility]; Protocol Stop: 06/19/18 09:01 Last Admin: 06/14/18 21:01 Dose: 133 mls/hr Ipratropium [place] (Atrovent Hfa) 2 puff IH RQ6 [facility] Methylprednisolone (Solu-Medrol) 60 mg IVP Q12 [facility] Last Admin: 06/14/18 21:01 Dose: 60 mg Montelukast Sodium (Singulair) 10 mg PO HS [facility] Last Admin: 06/14/18 21:00 Dose: 10 mg Naproxen (Anaprox Ds) 550 mg PO BIDCC PRN PRN Reason: Pain, Mild (1-3) - Labs Labs: 06/12/18 13:48 06/12/18 13:48 PT 11.4 SECONDS (9.7-12.2) 06/12/18 13:48 INR 1.0 06/12/18 13:48 APTT 31 SECONDS (21-34) 06/12/18 13:48
--- NOTE | 2018-06-15 00:12 | CP.PCM.PN ---
Subjective - Date & Time of Evaluation Date of Evaluation: 06/14/18 Time of Evaluation: 19:50 - Subjective Subjective: 73 y/o female, with history of pulmonary fibrosis, comes in for evaluation of worsening SOB and cough x1 week. Cough is productive with white sputum. Patient has no complaints of pain. Denies fever, chills, or chest pain. Reports she had similar previous symptoms in the past. Patient has no other complaints at this time. ran out of nebs at home Chief Complaint (Nursing): Shortness Of Breath History Per: Patient History/Exam Limitations: no limitations Onset/Duration Of Symptoms: Days Current Symptoms Are (Timing): Still Present - Medical History PMH: Arthritis, Asthma, Bronchitis, COPD (BRONCHITIS), Fractures (dislocation of elbow 2013), Pneumonia Denies: Anxiety, Chronic Kidney Disease - [facility] Procedures CL REDUC DISLOC-ELBOW (09/23/13) Family History: States: No Known Family Hx - Social History Hx Tobacco Use: No Hx Alcohol Use: No Hx Substance Use: No - Immunization History Hx Tetanus Toxoid Vaccination: No Hx Influenza Vaccination: Yes Hx Pneumococcal Vaccination: Yes Review Of Systems Except As Marked, All Systems Reviewed And Found Negative. Constitutional: Negative for: Fever, Chills Cardiovascular: Negative for: Chest Pain Respiratory: Positive for: Cough (productive), Shortness of Breath, Sputum (whi te) Physical Exam - Physical Exam Appears: Non-toxic, No Acute Distress Skin: Warm, Dry Head: Atraumatic, Normacephalic Eye(s): bilateral: Normal Inspection Oral Mucosa: Moist Neck: Supple Chest: Symmetrical Cardiovascular: Rhythm Regular, No Murmur Respiratory: No Rales, No Rhonchi, No Wheezing, Other (Coarse breath sounds bilaterally) Gastrointestinal/Abdominal: Soft, No Tenderness Extremity: No Pedal Edema Extremity: Bilateral: Atraumatic, Normal Color And Temperature, Normal ROM Neurological/Psych: Oriented x3, Normal Speech Past Patient History - Past Medical History & Family History Past Medical History?: Yes - Past Social History Smoking Status: Never Smoked - CARDIAC Hx Cardiac Disorders: No - PULMONARY Hx Asthma: Yes Hx Bronchitis: Yes Hx Chronic Obstructive Pulmonary Disease (COPD): Yes (BRONCHITIS) Hx Pneumonia: Yes - NEUROLOGICAL Hx Neurological Disorder: No - HEENT Hx HEENT Problems: No - RENAL Hx Chronic Kidney Disease: No - ENDOCRINE/METABOLIC Hx Endocrine Disorders: No - HEMATOLOGICAL/ONCOLOGICAL Hx Blood Disorders: No Hx Blood Transfusions: No - INTEGUMENTARY Hx Dermatological Problems: No - MUSCULOSKELETAL/RHEUMATOLOGICAL Hx Arthritis: Yes Hx Falls: No Hx Fractures: Yes (dislocation of elbow 2013) - GASTROINTESTINAL Hx Gastrointestinal Disorders: No - GENITOURINARY/GYNECOLOGICAL Hx Genitourinary Disorders: No - PSYCHIATRIC Hx Substance Use: No - SURGICAL HISTORY Hx Surgeries: Yes Other/Comment: 'LUNG SX'/BIOPSY? 2016 - ANESTHESIA Hx Anesthesia: Yes Hx Anesthesia Reactions: No Hx Malignant Hyperthermia: No Has any member of the family had a problem w/ anesthesia?: No Meds Allergies/Adverse Reactions: Allergies Allergy/AdvReac Type Severity Reaction Status Date / Time iodine Allergy Verified 06/12/18 12:50 - Medications Medications: Current Medications Albuterol/Ipratropium (Duoneb 3 Mg/0.5 Mg (3 Ml) Ud) 3 ml INH RQ6 [facility] Last Admin: 06/13/18 19:39 Dose: 3 ml Budesonide (Pulmicort Respules) 0.5 mg INH RQ12 [facility] Last Admin: 06/13/18 19:39 Dose: 0.5 mg Enoxaparin Sodium (Lovenox) 40 mg SC DAILY [facility] Last Admin: 06/13/18 09:55 Dose: 40 mg Guaifenesin (Robitussin) 200 mg PO Q4H PRN PRN Reason: Cough and congestion Last Admin: 06/13/18 16:23 Dose: 200 mg Ipratropium [place] (Atrovent Hfa) 2 puff IH RQ6 [facility] Methylprednisolone (Solu-Medrol) 60 mg IVP Q12 [facility] Last Admin: 06/13/18 21:39 Dose: 60 mg Montelukast Sodium (Singulair) 10 mg PO HS [facility] Last Admin: 06/13/18 21:39 Dose: 10 mg Naproxen (Anaprox Ds) 550 mg PO BIDCC PRN PRN Reason: Pain, Mild (1-3) Results - Vital Signs Recent Vital Signs: Last Vital Signs Temp 98 F 06/13/18 20:00 Pulse 88 06/13/18 20:00 Resp 20 06/13/18 20:00 BP 138/80 06/13/18 14:00 Pulse Ox 95 06/13/18 20:00 - Labs Result Diagrams: 06/12/18 13:48 06/12/18 13:48 Assessment & Plan - Assessment and Plan (Free Text) Assessment: A/P 1. Dyspnea r/o CHF ECHO pending 2. Pulmonary Fibrosis -Chronic -Patient refusing antifibrotic medications -Repeat CT -Continue Duonebs -Continue Solu-Medrol -Continue Singulair 3. Paranoia -Psych Consulted Objective - Vital Signs/Intake and Output Vital Signs (last 24 hours): Temp Pulse Resp BP Pulse Ox 97.9 F 82 20 110/71 97 06/14/18 16:00 06/14/18 16:20 06/14/18 16:00 06/14/18 16:00 06/14/18 16:00 Intake and Output: 06/14/18 06/15/18 18:59 06:59 Intake Total 500 Output Total 200 Balance 300 - Medications Medications: Current Medications Albuterol/Ipratropium (Duoneb 3 Mg/0.5 Mg (3 Ml) Ud) 3 ml INH RQ6 [facility] Last Admin: 06/14/18 19:00 Dose: 3 ml Budesonide (Pulmicort Respules) 0.5 mg INH RQ12 [facility] Last Admin: 06/14/18 19:00 Dose: 0.5 mg Enoxaparin Sodium (Lovenox) 40 mg SC DAILY [facility] Last Admin: 06/14/18 10:07 Dose: 40 mg Guaifenesin (Robitussin) 200 mg PO Q4H PRN PRN Reason: Cough and congestion Last Admin: 06/14/18 22:17 Dose: 200 mg Vancomycin/Sodium Chloride (Vancomycin 1 Gm/Ns 200 Ml) 1 gm in 200 mls @ 133 mls/hr IVPB Q12H [facility]; Protocol Stop: 06/19/18 09:01 Last Admin: 06/14/18 21:01 Dose: 133 mls/hr Ipratropium [place] (Atrovent Hfa) 2 puff IH RQ6 [facility] Methylprednisolone (Solu-Medrol) 60 mg IVP Q12 [facility] Last Admin: 06/14/18 21:01 Dose: 60 mg Montelukast Sodium (Singulair) 10 mg PO HS [facility] Last Admin: 06/14/18 21:00 Dose: 10 mg Naproxen (Anaprox Ds) 550 mg PO BIDCC PRN PRN Reason: Pain, Mild (1-3) - Labs Labs: 06/12/18 13:48 06/12/18 13:48 PT 11.4 SECONDS (9.7-12.2) 06/12/18 13:48 INR 1.0 06/12/18 13:48 APTT 31 SECONDS (21-34) 06/12/18 13:48
[2018-06-15] MEDS ORDERED: MethylPREDNISolone 40 mg Vial IVP SCH (00:42)
--- NOTE | 2018-06-15 03:49 | PN ---
DATE: 06/15/2018 SUBJECTIVE: The patient is less short of breath, less cough, less wheezing. She denies any history of chest pain. The patient is seen by Pulmonology. She is on Solu-Medrol antibiotics. PHYSICAL EXAMINATION: VITAL SIGNS: Blood pressure 110/71, pulse 88, respiratory rate 20, temperature 97.9. LUNGS: Bilateral fine crackle all over both lung mel[place]. CARDIOVASCULAR SYSTEM: S1, S2. Regular. ABDOMEN: Soft, nontender. Bowel sounds are positive. ASSESSMENT: 1. Exacerbation of chronic obstructive pulmonary disease with interstitial pulmonary fibrosis. 2. Tracheobronchitis. PLAN: Continue Solu-Medrol. Taper steroid. Monitor the patient. Kevin Llanes MD
[2018-06-15] MEDS: guaiFENesin 200 mg/10 ml Syrup UD PO PRN ×3 (04:33→17:06)
[2018-06-15 07:18] LABS: HEMOGLOBIN 14.4 g/dL (11.0-16.0); MEAN CELL VOLUME 89.5 fL (81.0-99.0); MEAN CORPUSCULAR HEMOGLOBIN 29.3 pg (27.0-31.0); MEAN CORPUSCULAR HGB CONC 32.7 g/dL (33.0-37.0); MEAN PLATELET VOLUME 9.3 fL (7.2-11.7); RBC 4.9 Mil/uL (3.80-5.20)
[2018-06-15 07:50] LABS: ALB/GLOB RATIO 1.2 (1.0-2.1); ALBUMIN 3.9 g/dL (3.5-5.0); ALT/SGPT 7 U/L (9-52); AST/SGOT 22 U/L (14-36); BLOOD UREA NITROGEN 25 mg/dL (7-17); CALCIUM 9.6 mg/dl (8.6-10.4); GFR NON-AFRICAN AMERICAN > 60
[2018-06-15] MEDS: Albuterol-Ipratrop 3 mg / 0.5 (3 ml) UD INH SCH ×2 (08:15→13:10)
[2018-06-15] MEDS: Budesonide 0.5 mg/2 ml Inhal Susp UD INH SCH (08:15)
[2018-06-15] MEDS: Vancomycin 1 gm/NS 200 ml 1 GM/200 ML BAG IVPB SCH (10:00)
[2018-06-15] MEDS: Enoxaparin 40 mg Syringe SC SCH (10:59)
--- NOTE | 2018-06-15 14:53 | CP.PCM.PN ---
Subjective - Date & Time of Evaluation Date of Evaluation: 06/15/18 Time of Evaluation: 14:00 - Subjective Subjective: Patient seen and examined Patient states that cough and SOB improving Afebrile Denies fever, chest pain, SOB, hemoptysis Chest X-Ray 06/12- Prominent diffuse increased interstitial lung markings bilaterally suggestive for interstitial infiltrate and/or edema superimposed on chronic fibrotic changes. Bilateral hilar prominence. Enlarged ectatic aorta. Cardiomegaly. Physical Exam Oxygen Saturation 98% Room General: NAD Cardio: S1. S2, No murmurs, rubs, gallops Resp: Rales Abd: Soft, non-tender, No rebound, rigidity, guarding A/P 1. Interstitial Lung Disease -Patient is clinically stable for discharge 2. Asthma -Chronic Objective - Vital Signs/Intake and Output Vital Signs (last 24 hours): Temp Pulse Resp BP Pulse Ox 97.8 F 86 20 123/78 95 06/15/18 07:00 06/15/18 07:00 06/15/18 07:00 06/15/18 07:00 06/15/18 07:00 Intake and Output: 06/15/18 06/15/18 06:59 18:59 Intake Total 500 Output Total 200 Balance 300 - Medications Medications: Current Medications Albuterol/Ipratropium (Duoneb 3 Mg/0.5 Mg (3 Ml) Ud) 3 ml INH RQ6 [facility] Last Admin: 06/15/18 13:10 Dose: 3 ml Budesonide (Pulmicort Respules) 0.5 mg INH RQ12 [facility] Last Admin: 06/15/18 08:15 Dose: 0.5 mg Enoxaparin Sodium (Lovenox) 40 mg SC DAILY [facility] Last Admin: 06/15/18 10:59 Dose: 40 mg Guaifenesin (Robitussin) 200 mg PO Q4H PRN PRN Reason: Cough and congestion Last Admin: 06/15/18 11:16 Dose: 200 mg Vancomycin/Sodium Chloride (Vancomycin 1 Gm/Ns 200 Ml) 1 gm in 200 mls @ 133 mls/hr IVPB Q12H [facility]; Protocol Stop: 06/19/18 09:01 Last Admin: 06/15/18 10:00 Dose: 133 mls/hr Ipratropium [place] (Atrovent Hfa) 2 puff IH RQ6 [facility] Methylprednisolone (Solu-Medrol) 40 mg IVP Q12 [facility] Last Admin: 06/15/18 10:59 Dose: 40 mg Montelukast Sodium (Singulair) 10 mg PO HS [facility] Last Admin: 06/14/18 21:00 Dose: 10 mg Naproxen (Anaprox Ds) 550 mg PO BIDCC PRN PRN Reason: Pain, Mild (1-3) - Labs Labs: 06/15/18 06:57 06/15/18 06:57 PT 11.4 SECONDS (9.7-12.2) 06/12/18 13:48 INR 1.0 06/12/18 13:48 APTT 31 SECONDS (21-34) 06/12/18 13:48
[2018-06-15 15:58] VITALS: BP 110/65; PULSE 67; TEMP 97.1; O2SAT 97
--- NOTE | 2018-06-15 16:07 | CP.PCM.PN ---
Subjective - Date & Time of Evaluation Date of Evaluation: 06/15/18 Time of Evaluation: 16:00 - Subjective Subjective: patient seen today , states sob improved, cough still present , oob ambulating without sob vss and labs reviewed - stable a febrile Objective - Vital Signs/Intake and Output Vital Signs (last 24 hours): Temp Pulse Resp BP Pulse Ox 97.1 F L 67 20 110/65 97 06/15/18 15:57 06/15/18 15:57 06/15/18 15:57 06/15/18 15:57 06/15/18 15:57 Intake and Output: 06/15/18 06/15/18 06:59 18:59 Intake Total 500 680 Output Total 200 Balance 300 680 - Medications Medications: Current Medications Albuterol/Ipratropium (Duoneb 3 Mg/0.5 Mg (3 Ml) Ud) 3 ml INH RQ6 [facility] Last Admin: 06/15/18 13:10 Dose: 3 ml Budesonide (Pulmicort Respules) 0.5 mg INH RQ12 [facility] Last Admin: 06/15/18 08:15 Dose: 0.5 mg Enoxaparin Sodium (Lovenox) 40 mg SC DAILY [facility] Last Admin: 06/15/18 10:59 Dose: 40 mg Guaifenesin (Robitussin) 200 mg PO Q4H PRN PRN Reason: Cough and congestion Last Admin: 06/15/18 11:16 Dose: 200 mg Vancomycin/Sodium Chloride (Vancomycin 1 Gm/Ns 200 Ml) 1 gm in 200 mls @ 133 mls/hr IVPB Q12H [facility]; Protocol Stop: 06/19/18 09:01 Last Admin: 06/15/18 10:00 Dose: 133 mls/hr Ipratropium [place] (Atrovent Hfa) 2 puff IH RQ6 [facility] Methylprednisolone (Solu-Medrol) 40 mg IVP Q12 [facility] Last Admin: 06/15/18 10:59 Dose: 40 mg Montelukast Sodium (Singulair) 10 mg PO HS [facility] Last Admin: 06/14/18 21:00 Dose: 10 mg Naproxen (Anaprox Ds) 550 mg PO BIDCC PRN PRN Reason: Pain, Mild (1-3) - Labs Labs: 06/15/18 06:57 06/15/18 06:57 PT 11.4 SECONDS (9.7-12.2) 06/12/18 13:48 INR 1.0 06/12/18 13:48 APTT 31 SECONDS (21-34) 06/12/18 13:48 Assessment and Plan - Assessment and Plan (Free Text) Assessment: A/P 73 y/o female, with of pulmonary fibrosis, COPD comes in for evaluation of worsening SOB and cough x1 week admitted with asthma and intestinal lung disease patient clinically improved with steroids repeat blood culture - negative x [address] Mathur today, cleared for discharge home and continue taper dose steroids D/w Dr. brand, cleared for disharge home today and f/u with his office in 1 week discharge plan discussed with patient who understands and agrees with plan
--- NOTE | 2018-06-15 22:48 | CP.PCM.DIS ---
Provider - Provider Date of Admission: 06/12/18 14:49 Attending physician: Kevin Llanes MD Consults: 06/12/18 21:58 Cardiology Consult Routine Comment: Consulting Provider: Andrea Arroyo Consulting Physician: Andrea Arroyo Reason for Consult: Cardiomegaly Pulmonology Consult Routine Comment: Consulting Provider: Allen Croft Consulting Physician: Allen Croft Reason for Consult: Pnx,Pulmonary Fibrosis 06/13/18 11:42 Psychiatry Consult Routine Comment: Consulting Provider: Kiran García Consulting Physician: Kiran García Reason for Consult: delusions 06/13/18 12:00 Pulmonology Consult Routine Comment: Consulting Provider: Allen Croft Consulting Physician: Allen Croft Reason for Consult: pulm fibrosis Time Spent in preparation of Discharge (in minutes): 30 Hospital Course - Lab Results Lab Results: Micro Results 06/14/18 17:21 Blood Blood Culture - Preliminary NO GROWTH AFTER 24 HOURS 06/14/18 17:21 Blood Blood Culture - Preliminary NO GROWTH AFTER 24 HOURS 06/14/18 13:45 Naris MRSA Culture - Final MRSA NOT DETECTED 06/12/18 14:38 Blood Blood Culture - Preliminary NO GROWTH AFTER 3 DAYS 06/12/18 14:38 Blood S.aureus & Coag-Neg Staph PNA FISH - Final 06/12/18 14:38 Blood Blood Culture - Final Coagulase Neg Staphylococcus 06/12/18 14:38 Blood Gram Stain - Final 06/13/18 04:40 Nose MRSA Culture (Admit) - Final MRSA NOT DETECTED Most Recent Lab Values WBC 20.0 K/uL (4.8-10.8) H D 06/15/18 06:57 RBC 4.90 Mil/uL (3.80-5.20) 06/15/18 06:57 Hgb 14.4 g/dL (11.0-16.0) 06/15/18 06:57 Hct 43.9 % (34.0-47.0) 06/15/18 06:57 MCV 89.5 fL (81.0-99.0) 06/15/18 06:57 MCH 29.3 pg (27.0-31.0) 06/15/18 06:57 MCHC 32.7 g/dL (33.0-37.0) L 06/15/18 06:57 RDW 16.0 % (11.5-14.5) H 06/15/18 06:57 Plt Count 326 K/uL (130-400) 06/15/18 06:57 MPV 9.3 fL (7.2-11.7) 06/15/18 06:57 Neut % (Auto) 65.1 % (50.0-75.0) 06/12/18 13:48 Lymph % (Auto) 23.4 % (20.0-40.0) 06/12/18 13:48 [place] % (Auto) 8.6 % (0.0-10.0) 06/12/18 13:48 Eos % (Auto) 1.9 % (0.0-4.0) 06/12/18 13:48 Baso % (Auto) 1.0 % (0.0-2.0) 06/12/18 13:48 Neut # (Auto) 7.9 K/uL (1.8-7.0) H 06/12/18 13:48 Lymph # (Auto) 2.8 K/uL (1.0-4.3) 06/12/18 13:48 [place] # (Auto) 1.0 K/uL (0.0-0.8) H 06/12/18 13:48 Eos # (Auto) 0.2 K/uL (0.0-0.7) 06/12/18 13:48 Baso # (Auto) 0.1 K/uL (0.0-0.2) 06/12/18 13:48 PT 11.4 SECONDS (9.7-12.2) 06/12/18 13:48 INR 1.0 06/12/18 13:48 APTT 31 SECONDS (21-34) 06/12/18 13:48 Sodium 137 mmol/L (132-148) 06/15/18 06:57 Potassium 4.1 mmol/L (3.6-5.2) 06/15/18 06:57 Chloride 100 mmol/L (98-107) 06/15/18 06:57 Carbon Dioxide 31 mmol/L (22-30) H 06/15/18 06:57 Anion Gap 10 (10-20) 06/15/18 06:57 BUN 25 mg/dL (7-17) H 06/15/18 06:57 Creatinine 0.7 mg/dL (0.7-1.2) 06/15/18 06:57 Est GFR ( Amer) > 60 06/15/18 06:57 Est GFR (Non-Af Amer) > 60 06/15/18 06:57 Random Glucose 149 mg/dL (65-105) H D 06/15/18 06:57 Calcium 9.6 mg/dl (8.6-10.4) 06/15/18 06:57 Total Bilirubin 0.3 mg/dL (0.2-1.3) 06/15/18 06:57 AST 22 U/L (14-36) 06/15/18 06:57 ALT 7 U/L (9-52) L D 06/15/18 06:57 Alkaline Phosphatase 104 U/L (38-126) 06/15/18 06:57 Troponin I < 0.0120 ng/mL (0.00-0.120) 06/12/18 13:48 NT-Pro-B Natriuret Pep 274 pg/mL (0-900) 06/12/18 13:48 Total Protein 7.3 g/dL (6.3-8.3) 06/15/18 06:57 Albumin 3.9 g/dL (3.5-5.0) 06/15/18 06:57 Globulin 3.4 gm/dL (2.2-3.9) 06/15/18 06:57 Albumin/Globulin Ratio 1.2 (1.0-2.1) 06/15/18 06:57 Urine Color Yellow (YELLOW) 06/12/18 18:27 Urine Clarity Clear (Clear) 06/12/18 18:27 Urine pH 5.0 (5.0-8.0) 06/12/18 18:27 Ur Specific [place] 1.010 (1.003-1.030) 06/12/18 18:27 Urine Protein Negative mg/dL (NEGATIVE) 06/12/18 18:27 Urine Glucose (UA) Normal mg/dL (Normal) 06/12/18 18:27 Urine Ketones Negative mg/dL (NEGATIVE) 06/12/18 18:27 Urine Blood Negative (NEGATIVE) 06/12/18 18:27 Urine Nitrate Negative (NEGATIVE) 06/12/18 18:27 Urine Bilirubin Negative (NEGATIVE) 06/12/18 18:27 Urine Urobilinogen Normal mg/dL (0.2-1.0) 06/12/18 18:27 Ur Leukocyte Esterase Neg Lisa/uL (Negative) 06/12/18 18:27 Urine WBC (Auto) < 1 /hpf (0-5) 06/12/18 18:27 Ur Squamous Epith Cells < 1 /hpf (0-5) 06/12/18 18:27 Discharge Exam - Head Exam Head Exam: ATRAUMATIC, NORMOCEPHALIC Discharge Plan - Discharge Medications Prescriptions: Albuterol/Ipratropium [Duoneb 3 mg/0.5 mg (3 ml) UD] 3 ml INH RQ6 30 Days neb predniSONE [Prednisone] 30 mg PO DAILY #18 tab Budesonide [Pulmicort Respules] 0.5 mg INH RQ12 #60 neb guaiFENesin [Robitussin] 200 mg PO Q4H PRN #240 [facility] PRN Reason: Cough And Congestion Montelukast [Singulair] 10 mg PO HS #30 tab - Follow Up Plan Condition: FAIR Disposition: HOME/ ROUTINE Instructions: Guaifenesin, Ipratropium and Albuterol, Montelukast, Prednisone, Budesonide (Oral Inhalation), Interstitial Lung Disease Additional Instructions: Please f/u with Dr. Llanes office in 1 week Please f/u with Dr. croft office in 2 weeks- call and make appointment Please continue medication as per med. rec. Referrals: Allen Croft MD [Staff Provider] - Kevin Llanes MD [Staff Provider] -
--- NOTE | 2018-06-16 13:15 | DS ---
The patient is for discharge. The patient is afebrile. Less short of breath. Less cough. Less wheezing. No nausea, vomiting. No chest pain, and she feels better. PHYSICAL EXAMINATION: VITAL SIGNS: Blood pressure is 110/65, pulse 67, respiratory rate 20, temperature 97.1. LUNGS: Bilateral scattered rhonchi. Decreased air entry. Fine crackles. CARDIOVASCULAR: PMI not localized. S1, S2 regular. ABDOMEN: Soft. ASSESSMENT: 1. Interstitial lung disease. 2. Tracheobronchitis. 3. Hypotension. PLAN: Discharge the patient. Outpatient followup. Monitor the patient. Kevin Llanes MD
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
== END 2018-06-15 18:20 | disposition home or self-care (01) | DRG 197 ==
LOC: C.ER 12:37 → C.9E 14:49 → C.9I 22:36 → C.3T 06-14 13:22
PROVIDERS: ADMIT Internal Medicine; ATTEND Internal Medicine
DX: J84.10 Pulmonary fibrosis, unspecified (principal); J44.1 Chronic obstructive pulmonary disease with (acute) exacerbation; I77.819 Aortic ectasia, unspecified site; I51.7 Cardiomegaly; F22 Delusional disorders; I95.9 Hypotension, unspecified